=== PATIENT | male | born 1950 | race Caucasian/White ===

== ENCOUNTER 2020-01-19 12:21 | Outpatient (CLI) | payer MEDICARE, SELFPAY ==
--- NOTE | 2020-01-19 12:45 | USCV_ITS ---
Toni Riojas Age: 69 Gender: M : 1950 Exam Date: 01/19/2020 12:26 Ordering Phys: Coby Desai MD ([email or web address]) Technologist: Chloe Vergara Exam Location: [facility] [place] Indication: AOV REPLACEMENT BP: 127 / 73 HR: 97 Rhythm: Sinus Technical Quality: Poor secondary to COPD MEASUREMENTS (Male / Female) Normal Values 2D ECHO LVOT Diameter 2.0 cm LV Ejection Fraction MOD 2C 77.6 % LV Ejection Fraction 2C AL 79.2 % LA Diameter 2.6 cm LA Width 3.1 cm LA Height 4.2 cm RA Width 3.2 cm RA Height 4.3 cm M-MODE Aortic Annulus Diameter 3.4 cm LA Ao Ratio MM 0.8 DOPPLER AV Peak Velocity 145.0 cm/s LVOT Peak Velocity 100.0 cm/s AV Area Cont Eq vti 2.1 cm squared AV Area Cont Eq pk 2.3 cm squared MV Area PHT 5.0 cm squared Mitral E to A Ratio 0.6 MV E' Velocity 8.0 cm/s Mitral E to MV E' Ratio 8.1 Mitral E to LV E' Lateral Ratio 8.2 Mitral E to LV E' Septal Ratio 8.1 TV Peak E Velocity 48.0 cm/s Right Atrial Pressure 3.0 mmHg FINDINGS Left Ventricle Normal left ventricular size and systolic function, EF 74 %. Grade I/IV diastolic dysfunction (abnormal relaxation filling pattern), normal to mildly elevated filling pressures. Right Ventricle Normal right ventricular size and systolic function. Right Atrium Normal right atrial size. Left Atrium The left atrium is normal in size. Mitral Valve Thickened mitral valve. Aortic Valve Aortic valve appears to be well-seated within normal leaflet motion. The peak velocity across the aortic valve 1.5 m/s. The peak gradient was 9 mmHg. Tricuspid Valve No gross abnormalities noted Pulmonic Valve No gross abnormalities noted Pericardium Normal pericardium without effusion. Aorta Aortic root was of normal size CONCLUSIONS Normal left ventricular size and systolic function, EF 74 %. Grade I/IV diastolic dysfunction (abnormal relaxation filling pattern), normal to mildly elevated filling pressures. Aortic valve appears to be well-seated within normal leaflet motion. The peak velocity across the aortic valve 1.5 m/s. The peak gradient was 9 mmHg. Thickened mitral valve. There is no pericardial effusion. There are no intracardiac masses. No significant stenotic or regurgitant lesions were noted Compared to the previous study from a 12/23/2018, the aortic valve has been replaced. No other significant changes were noted Dr Coby Desai MD [facility] (Electronically Signed) Final Date: 22 Jan 2020 09:28 S
== END 2020-01-19 12:22 | disposition home or self-care (01) ==
LOC: RAD 12:23
PROVIDERS: Family Provider Internal Medicine; PCP Internal Medicine; Visit Provider Internal Medicine Cardiovascular Disease
DX: Z95.2 Presence of prosthetic heart valve (principal); I05.9 Rheumatic mitral valve disease, unspecified
CPT/HCPCS: 93306

== ENCOUNTER 2020-12-17 13:53 | Outpatient (CLI) | payer MEDICARE, SELFPAY ==
--- NOTE | 2020-12-17 13:59 | USCV_ITS ---
Toni Riojas Age: 70 Gender: M : 1950 Exam Date: 12/17/2020 13:48 Ordering Phys: Alayna Bloom MD Technologist: Patria Haider [place]am Location[place] [facility] [place] Indication: RLE PAD RIGHT LEFT Brachial 126.00 mmHg Brachial 113.00 mmHg Pressure (mmHg) Waveform Pressure (mmHg) Waveform 132.00 High Thigh 132.00 Above Knee 137.00 ACCOUNTING RECONCILIATION CLERK 132.00 DPA 1.09 Ankle/Brachial Index 70.00 Pre-Exercise Toe Pressure Pre-Exercise Toe/Brachial Index 0.56 FINDINGS Normal resting TERENCE of the right side Slightly diminished resting TBI on the right side Normal PVR waveforms CONCLUSIONS No significant arterial obstruction, based on the above findings Dr Coby Desai MD [facility] (Electronically Signed) Final Date: 17 December 2020 18:36 S
== END 2020-12-17 13:54 | disposition home or self-care (01) ==
LOC: RAD 13:56
PROVIDERS: PCP Internal Medicine; Visit Provider Internal Medicine
DX: I73.9 Peripheral vascular disease, unspecified (principal)
CPT/HCPCS: 93922

== ENCOUNTER 2021-03-10 11:02 | Outpatient (CLI) | payer MEDICARE, SELFPAY ==
--- NOTE | 2021-03-10 11:14 | CT_ITS ---
WS: [id number] LDCT LUNG CANCER SCREENING HISTORY: NICOTINE DEPENDENCE CIGARETTES W/OTHER NICOTINE DISORDERS TECHNIQUE: Axial imaging performed from the apices to 1 cm below the costophrenic angles. Coronal and sagittal reformats are submitted with axial MIP series. All CT scans at [facility] use at least one of these dose optimization techniques: automated exposure control; mA and/or kV adjustment per patient size (includes targeted exams where dose is matched to clinical indication); or iterativ e reconstruction. DLP: 59.33 mGy.cm DIvol: 1.58 mGy COMPARISON: 09/14/2017 Diagnostic quality: Satisfactory Lung Nodules: No pulmonary nodules, endobronchial lesion or groundglass nodule. Lungs: Moderate hyperexpansion. Calcified benign granuloma LEFT lower lobe. Linear scarring in the li ngula and at the LEFT lung base. Additional subsegmental atelectasis at the RIGHT costophrenic angle. Heart: Normal size heart. Status post CABG and median sternotomy. No pericardial effusion. Other findings: Mild atherosclerosis aorta. Pulmonary artery size is normal. No significant hiatal he rnia. Patient has a known RIGHT adrenal mass which is of low-attenuation and decreased Hounsfield uni ts consistent with an adenoma. Stable since 09/14/2017. Increase in thoracic kyphosis. CT/CT lung screening [id number] IMPRESSION: LUNG-RADS: 1-Negative FOLLOW UP: 12 Month: Continue annual screening with LDCT OTHER FINDINGS (S MODIFIER): None.
== END 2021-03-10 11:03 | disposition home or self-care (01) ==
PROVIDERS: PCP Internal Medicine; Visit Provider Internal Medicine
DX: Z12.2 Encounter for screening for malignant neoplasm of respiratory organs (principal); F17.218 Nicotine dependence, cigarettes, with other nicotine-induced disorders
CPT/HCPCS: 71271

== ENCOUNTER 2021-08-04 10:37 | Emergency (ER) | payer MEDICARE, SELFPAY ==
--- NOTE | 2021-08-04 11:07 | ED_ITS ---
HPI - Syncope General: Chief Complaint: Syncope Stated Complaint: PASSED OUT THIS MORNING Time Seen by Provider: 08/04/21 11:06 History of Present Illness: HPI narrative: 71-year-old male presents emergency room by private vehicle. Reports that he passed out this morning.He denies any chest pain or shortness of breath. He states he gets about a bed and got lightheaded and dizzy while he was on the way to the bathroom went back and sat down passed out. He has had similar episodes in the past. Is been evaluated for any significant finding. MD complaint: almost passed out Onset (ago): minute(s) Prodromal symptoms: lightheaded and palpitations Witnessed: No Injuries sustained associated with event: none Associated symptoms: Deny abdominal pain, chest pain, fever(s), headache(s), lightheadedness, nausea, short of breath, vertigo or weakness History: previous syncopal episode Treatments prior to arrival: none Review of Systems Const: Denies: fever(s) ENMT: Denies: throat pain, ear or mastoid pain, nasal discharge or nasal congestion Card: Denies: chest pain or lightheadedness Resp: Denies: dyspnea, productive cough or non-productive cough GI: Denies: abdominal pain or nausea : Denies: flank pain, dysuria, urinary frequency or urinary urgency Skin/Breast: Denies: rash or pruritus Neuro: Denies: headache(s) or vertigo PFSH ED PFSH: Medical History Aortic valve stenosis ASHD (arteriosclerotic heart disease) COPD (chronic obstructive pulmonary disease) Diabetes Hypertension Migraine Mixed hyperlipidemia Surgical History H/O aortic valve replacement History of colon resection Family History Other CAD (coronary artery disease) Social History Smoking and tobacco status: current every day smoker Alcohol intake: never Physical Exam Const: COMMON NORMALS: no acute distress GENERAL APPEARANCE: cooperative and comfortable ORIENTATION/CONSCIOUSNESS: Yes awake, Yes oriented to person, Yes oriented to place and Yes oriented to time HENMT: COMMON NORMALS: normocephalic, atraumatic, hearing grossly normal bilaterally, external ears normal, EAC's normal, TM's normal bilaterally, Normal nasal mucous membranes and turbinates present, moist oral mucous membranes and oropharynx normal HEAD & SCALP: normocephalic and atraumatic NOSE: Normal nasal mucous membranes and turbinates present EXTERNAL EAR: Yes external ears normal EXTERNAL AUDITORY CANAL: EAC's normal TYMPANIC MEMBRANE: TM's normal bilaterally Eye: COMMON NORMALS: Equal, round and reactive pupils present, EOMs intact bilaterally, conjunctivae normal and no scleral icterus CONJUNCTIVA: Yes conjunctivae normal PUPIL: Yes Equal, round and reactive pupils present Neck/C-Spine: COMMON NORMALS: full ROM, no lymphadenopathy, supple and no JVD Lymph: LYMPHATIC: no lymphadenopathy noted and no lymphedema noted Resp: COMMON NORMALS: normal respiratory effort, No retractions, No use of accessory muscles and clear to auscultation bilaterally AUSCULTATION: clear to auscultation bilaterally Cardio: COMMON NORMALS: no JVD, regular rate, regular rhythm and No murmurs present (Cardio) RATE: regular rate RHYTHM: regular rhythm GI: COMMON NORMALS: Soft to palpation and No hepatosplenomegaly present AUSCULTATION: Yes normoactive bowel sounds PALPATION: Yes Soft to palpation, No Tenderness to palpation present (GI), No Guarding due to palpation present (GI) and Yes No hepatosplenomegaly present Extremity: COMMON NORMALS: normal to inspection, capillary refill normal, no clubbing, cyanosis or edema, no calf tenderness and no pedal edema Neuro: SENSORIUM/ORIENTATION: Yes oriented to person, Yes oriented to place and Yes oriented to time Skin: COMMON NORMALS: no rashes or lesions noted GENERAL SKIN EXAM: no rashes or lesions noted Course Vital Signs: Vital signs: Vital Signs Temperature 97.9 F 08/04/21 11:16 Pulse Rate 72 08/04/21 11:49 Respiratory Rate 25 H 08/04/21 11:49 Blood Pressure 126/72 08/04/21 11:49 Pulse Oximetry 98 08/04/21 11:49 MDM - Syncope MDM Narrative: Medical decision making narrative: Reviewed labs imaging and EKGs with the patient. He would prefer to go home he has had these episodes in the past. We are going to discharge him home set him up for a 48-hour Holter monitor and a Lexiscan sestamibi stress test. Asked him to avoid exertional activities and return to the emergency room if he has any further problems after the evaluation is complete to follow-up with his primary care doctor. Lab Data: Labs: Lab Results 08/04/21 08/04/21 08/04/21 11:34 11:46 11:46 WBC 13.4 10^3/uL H 10 ^3/uL (4.0-10.0) RBC 5.09 10^6/uL 10^6 /uL (4.1-5.3) Hgb 15.9 g/dL g/dL (11.7-16.6) Hct 49.5 % % (42.0-52.0) MCV 97.2 fl H fl (80-94) MCH 31.2 pg pg (28.0-34.0) MCHC 32.1 g/dL g/dL (30.0-36.0) RDW 14.2 % % (12.1-15.1) Plt Count 187 10^3/cmm 10^3 /cmm (130-400) MPV 11.0 fL H fL (7.4-10.4) Neut % (Auto) 69.8 % % Lymph % (Auto) 22.2 % % [place] % (Auto) 4.6 % % Eos % (Auto) 2.3 % % Baso % (Auto) 0.7 % % Neut # (Auto) 9.36 10^3/uL H 10 ^3/uL (1.8-7.7) Lymph # (Auto) 3.0 10^3/uL 10^3/ uL (0.8-4.8) [place] # (Auto) 0.6 10^3/uL 10^3/ uL (0.2-0.9) Eos # (Auto) 0.3 10^3/uL 10^3/ uL (0.0-0.8) Baso # (Auto) 0.1 10^3/uL 10^3/ uL (0.0-0.1) Nucleated RBC % (a uto) 0 % % Nucleated RBCs # 0.0 /100WBC /100W BC Sodium Cancelled Potassium Cancelled Chloride Cancelled Carbon Dioxide Cancelled Anion Gap Cancelled BUN Cancelled Creatinine Cancelled GFR Calculation Cancelled Glucose Cancelled Calculated Osmolal ity Cancelled Calcium Cancelled Total Bilirubin Cancelled AST Cancelled ALT Cancelled Alkaline Phosphata se Cancelled Creatine Kinase Cancelled Troponin T Baselin e Troponin T 120 Min [place] Delta Troponin T Total Protein Cancelled Albumin Cancelled Globulin Cancelled Urine Color Yellow (Yellow) Urine Appearance Clear (CLEAR) Urine pH 6.5 (5-7) Ur Specific Gravit y 1.005 (1.005-1.030) Urine Protein Neg (Negative) Urine Glucose (UA) 4+ H (Normal) Urine Ketones Negative (Negative) Urine Blood Neg (Negative) Urine Nitrate Negative (Negative) Urine Bilirubin Neg (Negative) Urine Urobilinogen Norm mg/dL mg/dL (Negative) Ur Leukocyte Radha ase Negative (Negative) 08/04/21 08/04/21 08/04/21 11:46 12:43 12:43 WBC RBC Hgb Hct MCV MCH MCHC RDW Plt Count MPV Neut % (Auto) Lymph % (Auto) [place] % (Auto) Eos % (Auto) Baso % (Auto) Neut # (Auto) Lymph # (Auto) [place] # (Auto) Eos # (Auto) Baso # (Auto) Nucleated RBC % (a uto) Nucleated RBCs # Sodium 139 mmol/L mmol/L (136-145) Potassium 3.5 mmol/L mmol/L (3.5-5.1) Chloride 101 mmol/L mmol/L (98-107) Carbon Dioxide 24 mmol/L mmol/L (22-29) Anion Gap 17.5 (5-19) BUN 19 mg/dL mg/dL (8-23) Creatinine 1.5 mg/dL H mg/dL (0.7-1.2) GFR Calculation 46.3 mL/min L mL/ min (90-130) Glucose 118 mg/dL H mg/dL (65-115) Calculated Osmolal ity 291 mOsm/kg mOsm/ kg (285-295) Calcium 8.4 mg/dL L mg/dL (8.5-10.5) Total Bilirubin 0.3 mg/dL mg/dL (0.15-1.2) AST 15 U/L U/L (0-40) ALT 17 U/L U/L (0-41) Alkaline Phosphata se 78 IU/L IU/L (40-130) Creatine Kinase 120 U/L U/L (39-308) Troponin T Baselin e Cancelled 11 ng/L ng/L (0-15) Troponin T 120 Min [place] Delta Troponin T Total Protein 6.9 g/dL g/dL (6.6-8.7) Albumin 3.8 g/dL g/dL (3.5-5.2) Globulin 3.1 g/dL g/dL (1.3-4.6) Urine Color Urine Appearance Urine pH Ur Specific Gravit y Urine Protein Urine Glucose (UA) Urine Ketones Urine Blood Urine Nitrate Urine Bilirubin Urine Urobilinogen Ur Leukocyte Radha ase 08/04/21 14:10 WBC RBC Hgb Hct MCV MCH MCHC RDW Plt Count MPV Neut % (Auto) Lymph % (Auto) [place] % (Auto) Eos % (Auto) Baso % (Auto) Neut # (Auto) Lymph # (Auto) [place] # (Auto) Eos # (Auto) Baso # (Auto) Nucleated RBC % (a uto) Nucleated RBCs # Sodium Potassium Chloride Carbon Dioxide Anion Gap BUN Creatinine GFR Calculation Glucose Calculated Osmolal ity Calcium Total Bilirubin AST ALT Alkaline Phosphata se Creatine Kinase Troponin T Baselin e Troponin T 120 Min [place] 11.40 ng/L ng/L (0-15) Delta Troponin T 0.40 ABS# ABS# (0-10) Total Protein Albumin Globulin Urine Color Urine Appearance Urine pH Ur Specific Gravit y Urine Protein Urine Glucose (UA) Urine Ketones Urine Blood Urine Nitrate Urine Bilirubin Urine Urobilinogen Ur Leukocyte Radha ase Discharge Plan Discharge Patient Disposition: Home Clinical Impression: Syncope, Arrhythmia Condition: Stable Prescriptions: No Action atenolol-chlorthalidone 100-25 mg tablet 1 tab PO QAM RF: 0 isosorbide mononitrate 60 mg tablet extended release 24 hr 60 mg PO QAM RF: 0 losartan 50 mg tablet 50 mg PO QAM RF: 0 nitroglycerin [Nitrostat] 0.4 mg tablet, sublingual 0.4 mg SUBLINGUAL Q5M PRN (Reason: Chest Pain) RF: 0 Tresiba FlexTouch U-100 100 unit/mL (3 mL) insulin pen 40 - 45 unit SUBCUT BEDTIME RF: 0 Victoza 2-Roberto 0.6 mg/0.1 mL (18 mg/3 mL) pen injector 1.2 mg SUBCUT QAM RF: 0 Jardiance 25 mg Tablet 25 mg PO QAM RF: 0 clopidogrel 75 mg tablet 75 mg PO QAM RF: 0 simvastatin 20 mg tablet 20 mg PO BEDTIME RF: 0 Discharge Orders: Discharge ED (Routine); Ordered 08/04/21 Ordered By: Saeid Lacy Referrals: Alayna Bloom MD [Primary Care Provider] - Discharge Diet: Usual diet Discharge Activity: Increase activity as tolerated Patient Instructions: Opioid Safety Activity Restrictions/Additional Instructions: Avoid exertional activities. Case management will call to make arrangements for a Lexiscan sestamibi stress test and 48-hour Holter monitor. Return if you have any further problems. Coding Level of Care Code ED Dental Treatment Coordinator for Julio Cesar Rico
--- NOTE | 2021-08-04 11:14 | XR_ITS ---
WS: [id number] Exam: XR chest 1V portable [id number] Date/Time of Exam: 08/04/2021 11:22 AM Reason For Exam: dyspnea/cough Comparison 03/02/2019. The lungs are clear and fully inflated. Heart size is normal. The mediastinum and osseous thorax are unremarkable. Signs of previous median sternotomy. XR/XR chest 1V portable [id number] IMPRESSION: 1. No acute cardiopulmonary finding.
--- NOTE | 2021-08-04 11:15 | ECG_ITS ---
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 Measurements Intervals [place] Rate: 70 P: 39 NV: 229 QRS: 78 QRSD: 78 T: 116 QT: 371 QTc: 401 Interpretive Statements SINUS RHYTHM WITH FIRST DEGREE AV BLOCK SEPTAL MYOCARDIAL INFARCTION , PROBABLY OLD [40+ ms Q WAVE IN V1/V2] ST and T wave abnormality consider lateral ischemia Compared to ECG 03/15/2019 17:16:33 First degree AV block now present Myocardial infarct finding now present Electronically Signed On 08-05-2021 12:41:10 ASSEMBLING MOTOR BUILDER by Kim Mckenna M.D. [id number] f
[2021-08-04 11:16] VITALS: BP 135/78; PULSE 72; RESP 24; TEMP 36.6; O2SAT 98; BMI 27.2
--- NOTE | 2021-08-04 11:40 | PC.NURSE ---
pt placed on continuous spo2, nibp, and cm monitoring.
[2021-08-04 11:45] LABS: Add Urine Microscopic? NO; Charge for UA Resulting for Rev
[2021-08-04 11:49] VITALS: BP 125/69; BP 126/72; BP 127/84; PULSE 72; PULSE 73; PULSE 74; PULSE 76; RESP 25; O2SAT 98
--- NOTE | 2021-08-04 11:55 | PC.NURSE ---
sinus pause noted with pt becoming dizzy notified dr. sweeney no further orders.
[2021-08-04 12:05] LABS: Bilirubin Urine Neg (Negative); Blood Urine Neg (Negative); Glucose Urine UA 4+ (Normal); Ketones Urine Negative (Negative); Leukocyte Esterase Urine Negative (Negative); Nitrate Urine Negative (Negative); Protein Urine Neg (Negative); Specific Gravity, Urine 1.005 (1.005-1.030); Urine Appearance Clear (CLEAR); Urine Color Yellow (Yellow); Urobilinogen Urine Norm (Negative); pH Urine 6.5 (5-7)
[2021-08-04 12:15] LABS: Basophils # 0.1 10^3/uL (0.0-0.1); Basophils % 0.7 %; Eosinophils # 0.3 10^3/uL (0.0-0.8); Eosinophils % 2.3 %; Hematocrit 49.5 % (42.0-52.0); Hemoglobin 15.9 g/dL (11.7-16.6); Lymphocytes % 22.2 %; Mean Corpuscular HGB Conc 32.1 g/dL (30.0-36.0); Mean Corpuscular Hemoglobin 31.2 pg (28.0-34.0); Mean Corpuscular Volume 97.2 fl (80-94); Monocytes # 0.6 10^3/uL (0.2-0.9); Monocytes % 4.6 %; Neutrophils # 9.36 10^3/uL (1.8-7.7); Neutrophils % 69.8 %; Nucleated Red Blood Cells % 0 %; Platelet Count 187 10^3/cmm (130-400); Red Blood Count 5.09 10^6/uL (4.1-5.3); Red Cell Distribution Width 14.2 % (12.1-15.1); White Blood Count 13.4 10^3/uL (4.0-10.0)
--- NOTE | 2021-08-04 13:13 | PC.PHAR ---
pt states he takes care of his own medications-pt states he gets victoza, tresiba fflextouch u-100 and jardiance from the manufacture-notes are made in the pharmacy comments
--- NOTE | 2021-08-04 13:15 | ECG_ITS ---
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 Measurements Intervals [place] Rate: 74 P: 31 VT: 230 QRS: 71 QRSD: 77 T: 105 QT: 381 QTc: 424 Interpretive Statements SINUS RHYTHM WITH FIRST DEGREE AV BLOCK SEPTAL MYOCARDIAL INFARCTION , PROBABLY RECENT Compared to ECG 08/04/2021 11:30:31 No significant changes Electronically Signed On 08-05-2021 12:58:36 TECHNICAL ASSOCIATE by Kim Mckenna M.D. [email or web address].ChartWise Medical SystemsAndover College Prepselect medical [facility], avonFluid Imaging Technologies/store/NU/[id number] f
[2021-08-04 13:19] LABS: Alanine Aminotransferase 17 U/L (0-41); Albumin Level 3.8 g/dL (3.5-5.2); Alkaline Phosphatase 78 IU/L (40-130); Anion Gap 17.5 (5-19); Aspartate Amino Transferase 15 U/L (0-40); Blood Urea Nitrogen 19 mg/dL (8-23); Calcium 8.4 mg/dL (8.5-10.5); Carbon Dioxide 24 mmol/L (22-29); Chloride 101 mmol/L (98-107); Creatine Phosphokinase 120 U/L (39-308); Globulin 3.1 g/dL (1.3-4.6); Glomerular Filtration Rate 46.3 mL/min (90-130); Glucose 118 mg/dL (65-115); Osmolality Calculated 291 mOsm/kg (285-295); Potassium 3.5 mmol/L (3.5-5.1); Sodium 139 mmol/L (136-145); Total Bilirubin 0.3 mg/dL (0.15-1.2); Total Protein 6.9 g/dL (6.6-8.7)
[2021-08-04 13:22] LABS: Troponin(5th) Baseline 11 ng/L (0-15)
[2021-08-04] MEDS: tetanus-dipt-pertussis 0.5 mL SDV IM (17:02)
--- NOTE | 2021-08-04 17:16 | PC.NURSE ---
Vital signs printed and scanned into chart.
--- NOTE | 2021-08-04 17:17 | PC.NURSE ---
vs printed and placed in chart for reference.
== END 2021-08-04 17:19 | disposition home or self-care (01) ==
PROVIDERS: Emergency Provider Family Medicine; PCP Internal Medicine
DX: R55 Syncope and collapse (principal); I49.9 Cardiac arrhythmia, unspecified; Z79.4 Long term (current) use of insulin; Z79.02 Long term (current) use of antithrombotics/antiplatelets; J44.9 Chronic obstructive pulmonary disease, unspecified; E11.9 Type 2 diabetes mellitus without complications; I10 Essential (primary) hypertension; E78.2 Mixed hyperlipidemia; F17.210 Nicotine dependence, cigarettes, uncomplicated; Z23 Encounter for immunization
CPT/HCPCS: 36415; 71045; 80053; 81003; 82550; 84484; 85025; 90471; 90715; 93005; 99283

== ENCOUNTER 2021-08-05 09:50 | Emergency (ER) | payer MEDICARE, SELFPAY ==
--- NOTE | 2021-08-05 09:54 | XR_ITS ---
WS: [id number] Exam: XR chest 1V portable [id number] Date/Time of Exam: 08/05/2021 9:54 AM Reason For Exam: syncope Comparison 08/04/2021. Mild groundglass infiltrate has developed in the right upper lobe since the previous study. Heart siz e is normal. Remaining lung conrad are clear. There is pulmonary hyperinflation. No pleural effusions . The mediastinum is not widened. Signs of previous median sternotomy. XR/XR chest 1V portable [id number] IMPRESSION: 1. Mild groundglass infiltrate has developed in the upper lobe of the right alexey g since prior study. This is suspicious for pneumonia. Covid pneumonia might be considered. 2. Pulmonary hyperinflation which might represent chronic obstructive lung dise ase.
--- NOTE | 2021-08-05 09:54 | ECG_ITS ---
[facility] Test Date: 2021-08-05 Pat Name: Toni Riojas Department: Room: Gender: Male Optometric Technician: : 1950 Requested By: Dana Campuzano Order Number: [id number] Shannon MD: Coby Desai M.D. Measurements Intervals [place] Rate: 72 P: 41 [place]: 236 QRS: 74 QRSD: 77 T: 166 QT: 362 QTc: 398 Interpretive Statements SINUS RHYTHM WITH FIRST DEGREE AV BLOCK ANTEROSEPTAL MYOCARDIAL INFARCTION , OF INDETERMINATE AGE [40+ ms Q WAVE IN V1-V4] MODERATE T-WAVE ABNORMALITY, CONSIDER LATERAL ISCHEMIA [-0.1+ mV T-WAVE IN I/aVL/V5/V6] INTERPRETATION BASED ON A DEFAULT AGE OF 40 YEARS Compared to ECG 08/04/2021 14:14:13 T-wave abnormality now present Possible ischemia now present Myocardial infarct finding still present Electronically Signed On 08-05-2021 21:55:30 CHIEF II DISPATCHER by Coby Desai M.D. [id number] f
[2021-08-05 10:44] VITALS: BP 122/64; PULSE 67; RESP 16; TEMP 36.8; O2SAT 98; BMI 27.2
[2021-08-05 11:05] LABS: Basophils # 0.1 10^3/uL (0.0-0.1); Basophils % 0.4 %; Eosinophils # 0.2 10^3/uL (0.0-0.8); Eosinophils % 1.5 %; Hematocrit 49.3 % (42.0-52.0); Lymphocytes # 2.4 10^3/uL (0.8-4.8); Lymphocytes % 18.1 %; Mean Corpuscular HGB Conc 32.5 g/dL (30.0-36.0); Mean Corpuscular Hemoglobin 31.4 pg (28.0-34.0); Mean Corpuscular Volume 96.7 fl (80-94); Monocytes # 0.7 10^3/uL (0.2-0.9); Monocytes % 4.9 %; Neutrophils # 9.95 10^3/uL (1.8-7.7); Neutrophils % 74.6 %; Nucleated Red Blood Cells % 0 %; Platelet Count 182 10^3/cmm (130-400); Red Cell Distribution Width 14.1 % (12.1-15.1); White Blood Count 13.3 10^3/uL (4.0-10.0)
[2021-08-05 11:28] LABS: Alanine Aminotransferase 17 U/L (0-41); Albumin Level 4.2 g/dL (3.5-5.2); Alkaline Phosphatase 78 IU/L (40-130); Anion Gap 16.4 (5-19); Aspartate Amino Transferase 14 U/L (0-40); Blood Urea Nitrogen 17 mg/dL (8-23); Calcium 9.2 mg/dL (8.5-10.5); Carbon Dioxide 24 mmol/L (22-29); Chloride 99 mmol/L (98-107); Globulin 2.7 g/dL (1.3-4.6); Glomerular Filtration Rate 50.1 mL/min (90-130); Glucose 130 mg/dL (65-115); Osmolality Calculated 285 mOsm/kg (285-295); Potassium 3.4 mmol/L (3.5-5.1); Sodium 136 mmol/L (136-145); Total Bilirubin 0.5 mg/dL (0.15-1.2); Total Protein 6.9 g/dL (6.6-8.7)
[2021-08-05 11:29] LABS: Troponin(5th) Baseline 13 ng/L (0-15)
[2021-08-05 11:51] LABS: Add Urine Microscopic? NO; Charge for UA Resulting for Rev
[2021-08-05 11:59] LABS: Urine Appearance Clear (CLEAR); Urine Color Straw (Yellow)
[2021-08-05 12:00] LABS: Bilirubin Urine Neg (Negative); Blood Urine Neg (Negative); Glucose Urine UA 4+ (Normal); Ketones Urine Negative (Negative); Leukocyte Esterase Urine Negative (Negative); Nitrate Urine Negative (Negative); Protein Urine Neg (Negative); Urobilinogen Urine Norm (Negative); pH Urine 7 (5-7)
[2021-08-05 12:51] VITALS: BP 111/68; PULSE 76; RESP 18; O2SAT 96
[2021-08-05 14:52] LABS: Troponin 5 2HR 10.69 ng/L (0-15)
[2021-08-05 15:05] LABS: Troponin 5 2HR Delta -2.31 ABS# (0-10)
== END 2021-08-05 16:28 ==
PROVIDERS: Physician Assistant; PCP Internal Medicine
DX: Z53.21 Procedure and treatment not carried out due to patient leaving prior to being seen by health care provider (principal)
CPT/HCPCS: 36415; 71045; 80053; 81003; 84484; 85025; 93005

== ENCOUNTER 2021-08-22 16:07 | Inpatient (IN) | payer MEDICARE, SELFPAY ==
[2021-08-22 16:25] VITALS: BP 126/75; PULSE 85; RESP 16; TEMP 36.8; O2SAT 99
--- NOTE | 2021-08-22 16:44 | ECG_ITS ---
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 Measurements Intervals [place] Rate: 84 P: 49 [place]: 232 QRS: 78 QRSD: 72 T: 97 QT: 334 QTc: 397 Interpretive Statements SINUS RHYTHM WITH FIRST DEGREE AV BLOCK SEPTAL MYOCARDIAL INFARCTION , OF INDETERMINATE AGE [40+ ms Q WAVE IN V1/V2] Compared to ECG 08/05/2021 10:53:19 T-wave abnormality no longer present Possible ischemia no longer present Myocardial infarct finding still present Electronically Signed On 08-24-2021 13:20:18 GRANULATING MACHINE OPERATOR by Abhi Cobian M.D. [email or web address].[facility].Hungry Local/store/[id number]
--- NOTE | 2021-08-22 17:21 | CTR_ITS ---
PROCEDURE INFORMATION: Exam: CT Head Without Contrast Exam date and time: 08/22/2021 5:21 PM Age: 71 years old Clinical indication: Syncope and collapse; Patient HX: 2 syncope episode x2 weeks ago; Additional info: Fall, eval brain bleed TECHNIQUE: Imaging protocol: Computed tomography of the head without contrast. Radiation optimization: All CT scans at this facility use at least one of these dose optimization techniques: automated exposure control; mA and/or kV adjustment per patient size (includes targeted exams where dose is matched to clinical indication); or iterative reconstruction. COMPARISON: No relevant prior studies available. RADIATION DOSE METRICS: Total DLP (mGy-cm): 1065.11 FINDINGS: Brain: Mild diffuse white matter disease likely reflecting chronic microvascular ischemic changes. Cerebral ventricles: No ventriculomegaly. Paranasal sinuses: Paranasal sinus opacifications. Mastoid air cells: Visualized mastoid air cells are well aerated. Bones/joints: Unremarkable. No acute fracture. Soft tissues: Unremarkable. CT/CT head wo con* [id number] IMPRESSION: Negative for intracranial hemorrhage or mass effect Radiation Dose CTDIVOL = (mGy): DLP = 1065.11 (mGy-cm)
--- NOTE | 2021-08-22 17:23 | ED_ITS ---
HPI - General Adult General: Chief complaint: Syncope Stated complaint: SYNCOPAL EPISODE: SENT BY PCP Time Seen by Provider: 08/22/21 16:31 History of Present Illness: HPI narrative: HPI: [71]yo patient w/ hx of CABG, s/p vavular repair. recurrent syncopes on holter monitor presenintg s/p acute episode of syncope at 11am. It was witnessed by patient's family friends. Patient reports falling down and hitting his head against the ground. Patient is on any anticoagulation. Patient's holter monitor was reviewed earlier today which showed complete heart block lasting for 5 seconds. He denies any chest pain, shortness, palpitation, abdominal pain or back pain prior to the episode of syncope. No recent exertional chest pain or shortness of breath. Denies vertigo or disequilibrium. The episode of syncope was not preceded by any prodromes including nausea, pallor, or diaphoresis. No symptoms of diarrhea, hematuria, dysuria, melena or hematochezia. No prior documented hx of anemia requiring blood transfusions, VTE, or aortic aneurysm. Onset: 11am Duration: x 1 episode Location: home Severity: moderate Review of Systems Narrative: Constitutional: No fever, no chills. HEENT: No vision changes CV: No chest pain, no palpitations PULM: No productive cough, no dyspnea. GI: No abdominal pain, no N/V/D. : No Dysuria MSKEL: No muscle pain SKIN: No new rashes, no lesions. NEURO: No headache, no focal weakness. HEME: No visible bruises PSYCH: Normal mood PFSH ED PFSH: Medical History Aortic valve stenosis ASHD (arteriosclerotic heart disease) COPD (chronic obstructive pulmonary disease) Diabetes Hypertension Migraine Mixed hyperlipidemia Syncope Surgical History H/O aortic valve replacement History of colon resection Family History Other CAD (coronary artery disease) Social History Smoking and tobacco status: current every day smoker Alcohol intake: never Physical Exam Narrative: EXAM NARRATIVE: Head: Atraumatic Eyes: PERRL, conjunctiva without injection, eyes tracking ENT: Mucous membrane moist NECK: Supple without lymphadenopathy, no nuchal rigidity LUNGS: LCTAB CV: RRR ABDOMEN: Soft, nontender in all quadrants, no guarding or rebound tenderness, no CVA or flank tenderness bilaterally EXTREMITY: Normal ROM SKIN: No rash or erythema NEURO: Mental status: A/Ox3 CN II-XII tested and intact. Sensation intact to sharp/dull differentiation in all extremities. Motor: Normal tone and bulk. No abnormal movements appreciated. No pronator drift. Strength tested and 5/5 in bilateral wrist flexion/extension, elbow flexion/extension, shoulder abduction, straight leg raise, knee flexion/extension, ankle dorsiflexion/plantarflexion. Patient ambulates with a steady gait. Coordination: Finger to nose and heel to alfonso testing intact bilaterally. PSYCH: Cooperative mood and affect Course Vital Signs: Vital signs: Vital Signs Temperature 98.1 F 08/26/21 07:00 Pulse Rate 75 08/26/21 10:14 Respiratory Rate 16 08/26/21 10:14 Blood Pressure 113/59 08/26/21 10:00 Pulse Oximetry 97 08/26/21 10:14 MDM - General Adult MDM Narrative: Medical decision making narrative: [71]yo patient w/ hx of CABG, w/ valvular repair, holter monitor for recurrent syncopy presenting to the ED after a syncope episode with holter recording 5 seconds of 3rd degree heart block. -chest pain, -SOB, -palpitations. Currently symptom free. S/p HDS. Neurologically intact. Given history, exam and workup, presentation not consist ent with seizures given short time course, no postictal state, no seizure activity. Low suspicion for acute neurologic catastrophes to include ICH given lack of trauma, risk factors for bleeding diathesis. Low suspicion for vascular catastrophes to include PE, thoracic aortic dissection, AAA rupture. Presentation not consistent with acute life threatening arrhythmia, structural heart disease, electrical conduction abnormalities, or ACS. Workup: CBC, BMP, Troponin, BNP, ECG, CT head Intervention: IVF, PO challenge, and serial reassessment EKG showing regular sinus rhythm at HT of 84. Normal axis. NC prolongation No ST elevations/depressions to suggest coronary occlusion. Normal NC, QRS, QT intervals. EKG: No e/o STEMI. No evidence of Brugada?s sign, delta wave, epsilon wave, significantly prolonged QTc, or malignant arrhythmia. [5:30pm] Continues to be in NSR in the ER. Patient has 5seconds of 3rd degree heart block captured on holter around the time patient had the syncope episode. Given findings of 3rd degree heart block, case was discussed with Dr. Cobian who agrees with admission. CT head negative for any acute bleeding. Disposition: ICU Lab Data: Labs: Lab Results 08/22/21 08/22/21 08/22/21 17:27 17:27 17:27 WBC 13.9 10^3/uL H 10 ^3/uL (4.0-10.0) RBC 5.15 10^6/uL 10^6 /uL (4.1-5.3) Hgb 15.7 g/dL g/dL (11.7-16.6) Hct 49.6 % % (42.0-52.0) MCV 96.3 fl H fl (80-94) MCH 30.5 pg pg (28.0-34.0) MCHC 31.7 g/dL g/dL (30.0-36.0) RDW 13.8 % % (12.1-15.1) Plt Count 185 10^3/cmm 10^3 /cmm (130-400) MPV 10.1 fL fL (7.4-10.4) Neut % (Auto) 66.2 % % Lymph % (Auto) 23.4 % % [place] % (Auto) 5.5 % % Eos % (Auto) 3.7 % % Baso % (Auto) 0.7 % % Neut # (Auto) 9.21 10^3/uL H 10 ^3/uL (1.8-7.7) Lymph # (Auto) 3.3 10^3/uL 10^3/ uL (0.8-4.8) [place] # (Auto) 0.8 10^3/uL 10^3/ uL (0.2-0.9) Eos # (Auto) 0.5 10^3/uL 10^3/ uL (0.0-0.8) Baso # (Auto) 0.1 10^3/uL 10^3/ uL (0.0-0.1) Nucleated RBC % (a uto) 0 % % Nucleated RBCs # 0.0 /100WBC /100W BC PT INR APTT Sodium 141 mmol/L mmol/L (136-145) Potassium 4.3 mmol/L mmol/L (3.5-5.1) Chloride 105 mmol/L mmol/L (98-107) Carbon Dioxide 23 mmol/L mmol/L (22-29) Anion Gap 17.3 (5-19) BUN 12 mg/dL mg/dL (8-23) Creatinine 1.1 mg/dL mg/dL (0.7-1.2) GFR Calculation 66.2 mL/min L mL/ min (90-130) Glucose 151 mg/dL H mg/dL (65-115) Calculated Osmolal ity 295 mOsm/kg mOsm/ kg (285-295) Calcium 9.2 mg/dL mg/dL (8.5-10.5) Magnesium 1.5 mg/dL L mg/dL (1.7-2.3) Troponin T Baselin e 11 ng/L ng/L (0-15) TSH 08/22/21 08/22/21 17:27 17:27 WBC RBC Hgb Hct MCV MCH MCHC RDW Plt Count MPV Neut % (Auto) Lymph % (Auto) [place] % (Auto) Eos % (Auto) Baso % (Auto) Neut # (Auto) Lymph # (Auto) [place] # (Auto) Eos # (Auto) Baso # (Auto) Nucleated RBC % (a uto) Nucleated RBCs # PT 13.20 SECONDS SEC ONDS (12.1-14.9) INR 0.98 (0.8-1.2) APTT 27.8 SECONDS SECO NDS (23.9-36.7) Sodium Potassium Chloride Carbon Dioxide Anion Gap BUN Creatinine GFR Calculation Glucose Calculated Osmolal ity Calcium Magnesium Troponin T Baselin e TSH 1.89 uIU/mL uIU/m L (0.27-4.20) Discharge Plan Discharge Patient Disposition: Admitted As Inpatient Admit Provider: Clay Guajardo Clinical Impression: Syncope and collapse, Heart block Condition: Stable Coding Level of Care Code ED Maintenance Mechanic Millwright for Julio Cesar Rico
[2021-08-22 17:28] VITALS: PULSE 105; RESP 16
[2021-08-22 17:34] LABS: Basophils # 0.1 10^3/uL (0.0-0.1); Basophils % 0.7 %; Eosinophils # 0.5 10^3/uL (0.0-0.8); Eosinophils % 3.7 %; Hematocrit 49.6 % (42.0-52.0); Hemoglobin 15.7 g/dL (11.7-16.6); Lymphocytes # 3.3 10^3/uL (0.8-4.8); Lymphocytes % 23.4 %; Mean Corpuscular HGB Conc 31.7 g/dL (30.0-36.0); Mean Corpuscular Hemoglobin 30.5 pg (28.0-34.0); Mean Corpuscular Volume 96.3 fl (80-94); Mean Platelet Volume 10.1 fL (7.4-10.4); Monocytes # 0.8 10^3/uL (0.2-0.9); Monocytes % 5.5 %; Neutrophils # 9.21 10^3/uL (1.8-7.7); Neutrophils % 66.2 %; Nucleated Red Blood Cells % 0 %; Platelet Count 185 10^3/cmm (130-400); Red Blood Count 5.15 10^6/uL (4.1-5.3); Red Cell Distribution Width 13.8 % (12.1-15.1); White Blood Count 13.9 10^3/uL (4.0-10.0)
--- NOTE | 2021-08-22 17:50 | P.HP_ITS ---
Providers/Chief Complaint Primary Care Provider: Alayna Bloom MD Chief Complaint: SYNCOPAL EPISODE: SENT BY PCP History of Present Illness Toni Riojas is a 71 year old male with history of valvular heart disease status post aortic valve [place] [address] Rocha, follows up with Dr. Desai, established coronary disease, chronic dyspnea on exertion, diabetes, has been having recurrent syncopal events for quite some time. Patient is stating that he has been having recurrent syncopes for last few years, he has been evaluated multiple times by the technician plant and maintenance, recently he was put on Holter monitor. Today around 11:30 AM he was at his friend's home when he had an event when he tried to get up from sitting position to go towards the door he completely felt tired, fatigue and fell on the ground. He recovered quickly. He drove home and after few hours he got a phone call to go to the ER as soon as possible because of 5 seconds of third-degree heart block detected on the Holter monitor. Patient drove himself to the ER. In the ER he had another episode for about 10 to 15 seconds, telemetry strip was reviewed which showed complete heart block, narrow complex QRS, patient felt weak lethargic and he was diaphoretic. He recovered spontaneously this time as well and by the time I saw him his heart rate was in 70s, sinus rhythm, normal blood pressure systolic blood pressure in 140s, patient was able to remember details. Son at the bedside. Dr. Cobian is currently in Senior Professional Services Consultant for STEMI, he will evaluate him after his procedure. Zoll pads applied in the ER And home medications he does take atenolol and losartan which I would hold for now Will need permanent pacemaker Admit to ICU Review of Systems Const: Reports: chills Eyes: Denies: change in vision ENMT: Denies: throat pain Card: Reports: swelling of feet/ankles, syncope and dyspnea on exertion Resp: Reports: dyspnea GI: Denies: abdominal pain : Denies: flank pain Musc: Denies: neck pain Skin/Breast: Denies: rash Neuro: Denies: headache(s) Psych: Denies: anxiety Endo: Denies: polyuria Serge/Lymph: Denies: easy bruising All/Imm: Denies: urticaria Medications/Allergies Home Medications Medication Instructions Recorded Confirmed Last Taken Type insulin degludec 100 unit/mL (3 40 - 45 unit SUBCUT BEDTIME ml 12/20/19 08/23/21 08/03/21 History mL) subcutaneous pen isosorbide mononitrate 60 mg 60 mg PO QAM 12/20/19 08/23/21 08/04/21 07:00 History tablet,extended release 24 hr nitroglycerin 0.4 mg sublingual 0.4 mg SUBLINGUAL Q5M PRN 12/20/19 08/23/21 Unknown History tablet clopidogrel 75 mg PO QAM 08/04/21 08/23/21 08/04/21 07:00 History liraglutide [Victoza 2-Roberto] 1.2 mg SUBCUT QAM 08/04/21 08/23/21 08/04/21 History simvastatin 20 mg PO BEDTIME 08/04/21 08/23/21 08/03/21 History atenolol 100 mg tablet 100 mg PO DAILY tab 08/21/21 08/23/21 Unknown History losartan 50 mg tablet 50 mg PO QAM tab 08/21/21 08/23/21 Unknown History Allergies Allergy/AdvReac Type Severity Reaction Status Date / Time codeine Allergy Unknown unknown Verified 08/22/21 16:29 Penicillins Allergy Unknown unknown Verified 08/22/21 16:29 Sulfa (Sulfonamide Allergy Unknown unknown Verified 08/22/21 16:29 Antibiotics) PFSH Acute PFSH: Medical History (Updated 08/22/21 @ 19:48 by Clay Guajardo MD) Aortic valve stenosis ASHD (arteriosclerotic heart disease) COPD (chronic obstructive pulmonary disease) Diabetes Hypertension Migraine Mixed hyperlipidemia Syncope Surgical History H/O aortic valve replacement History of colon resection Family History Other CAD (coronary artery disease) Social History Smoking and tobacco status: current every day smoker Alcohol intake: never Vitals/I&O/Wt Last Vital Signs Temp 98.3 F 08/22/21 16:25 Pulse 85 08/22/21 16:25 Resp 16 08/22/21 16:25 BP 126/75 08/22/21 16:25 Pulse Ox 99 08/22/21 16:25 Weight last 48 hrs Weight 104.326 kg Physical Exam 2 Narrative: EXAM NARRATIVE: Patient was in sinus rhythm at the time of my evaluation He was awake and alert No shortness of breath or chest pain Saturating well 2 L nasal cannula 100% Abdomen soft Lower extremity pitting edema Awake alert oriented x3 pleasant and cooperative Son at the bedside No audible stridor or wheezing Zoll pads applied Data : 08/23/21 04:31 08/23/21 04:31 A&P Assessment and plan (1) Syncope and collapse: Status: Acute (2) Heart block: Status: Acute (3) H/O aortic valve replacement: Status: Acute Additional A&P Information complete heart block Recurrent syncopal events Will need permanent pacemaker Dr. Cobian consulted Currently patient has Zoll pads, he will be admitted to ICU Currently hemodynamically stable Dr. Cobian will see him after his STEMI, he was notified about recent event in the ER We will keep him n.p.o. Admit to ICU He is full code Hold atenolol Check TSH, magnesium level, Lower extremity edema, check echo, he is not on diuretics at home No DVT prophylaxis in anticipation of procedures Attestations Medical Necessity Statement*: More than 2 midnights anticipated Time Spent in Patient Care: Greater than 35 minutes Coding Level of Care Code Acute Lighting Fixtures Decorator for Julio Cesar Rico Diagnoses Syncope and collapse R55 Heart block I45.9 H/O aortic valve replacement Z95.2
[2021-08-22] MEDS: acetaminophen 500 mg Tablet PO (17:55)
[2021-08-22] MEDS: aspirin 325 mg Tablet PO (17:55)
[2021-08-22 18:00] VITALS: BP 122/76; PULSE 85; RESP 24
[2021-08-22 18:03] LABS: INR 0.98 (0.8-1.2); Partial Thromboplastin Time 27.8 SECONDS (23.9-36.7)
[2021-08-22 18:05] LABS: Anion Gap 17.3 (5-19); Blood Urea Nitrogen 12 mg/dL (8-23); Calcium 9.2 mg/dL (8.5-10.5); Carbon Dioxide 23 mmol/L (22-29); Chloride 105 mmol/L (98-107); Glomerular Filtration Rate 66.2 mL/min (90-130); Glucose 151 mg/dL (65-115); Magnesium 1.5 mg/dL (1.7-2.3); Osmolality Calculated 295 mOsm/kg (285-295); Potassium 4.3 mmol/L (3.5-5.1); Sodium 141 mmol/L (136-145)
[2021-08-22 18:27] LABS: Thyroid Stimulating Hormone 1.89 uIU/mL (0.27-4.20)
[2021-08-22 18:31] LABS: Troponin(5th) Baseline 11 ng/L (0-15)
--- NOTE | 2021-08-22 18:44 | ECG_ITS ---
[facility] Test Date: 2021-08-22 Pat Name: Toni Riojas Department: Room: [facility]02 Gender: Male Fountain Server: : 1950 Requested By: Malathi Benitez Order Number: [id number] Shannon MD: Abhi Cobian M.D. Measurements Intervals [place] Rate: 77 P: 35 MO: 242 QRS: 76 QRSD: 84 T: 92 QT: 379 QTc: 429 Interpretive Statements SINUS RHYTHM WITH FIRST DEGREE AV BLOCK SEPTAL MYOCARDIAL INFARCTION , OF INDETERMINATE AGE [40+ ms Q WAVE IN V1/V2] Compared to ECG 08/22/2021 16:22:34 No significant changes Electronically Signed On 08-25-2021 17:31:10 ORTHOPEDIC TECH by Abhi Cobian M.D. [id number]
[2021-08-22 19:26] LABS: Troponin 5 2HR 10.38 ng/L (0-15)
[2021-08-22 19:32] LABS: Troponin 5 2HR Delta -0.62 ABS# (0-10)
[2021-08-22 19:33] VITALS: BP 146/82; PULSE 85; RESP 24; O2SAT 98
[2021-08-22 21:47] VITALS: PULSE 77; RESP 18; O2SAT 98
[2021-08-22 22:00] VITALS: PULSE 81
--- NOTE | 2021-08-22 22:44 | ECG_ITS ---
[facility] Test Date: 2021-08-22 Pat Name: Toni Riojas Department: Room: [facility]02 Gender: Male Skip Tracer: : 1950 Requested By: Malathi Benitez Order Number: [id number] Shannon MD: Abhi Cobian M.D. Measurements Intervals [place] Rate: 66 P: 18 RI: 265 QRS: 78 QRSD: 74 T: 93 QT: 391 QTc: 413 Interpretive Statements SINUS RHYTHM WITH FIRST DEGREE AV BLOCK SEPTAL MYOCARDIAL INFARCTION , OF INDETERMINATE AGE [40+ ms Q WAVE IN V1/V2] Compared to ECG 08/22/2021 20:40:26 No significant changes Electronically Signed On 08-25-2021 17:31:01 MANAGER HEMATOLOGY by Abhi Cobian M.D. [id number]
[2021-08-23] VITALS (65 sets, daily range): BP systolic 110–159; BP diastolic 64–93; PULSE 70–87; RESP 9–28; TEMP 36.5–36.9; O2SAT 94–100
[2021-08-23 01:13] LABS: Troponin 5 6HR 12.09 ng/L (0-15); Troponin 5 6HR Delta 1.09 ng/L (0-12)
[2021-08-23 05:32] LABS: Basophils # 0.1 10^3/uL (0.0-0.1); Basophils % 0.7 %; Eosinophils # 0.5 10^3/uL (0.0-0.8); Eosinophils % 3.6 %; Hematocrit 52.4 % (42.0-52.0); Hemoglobin 16.3 g/dL (11.7-16.6); Lymphocytes # 2.7 10^3/uL (0.8-4.8); Lymphocytes % 19.3 %; Mean Corpuscular HGB Conc 31.1 g/dL (30.0-36.0); Mean Corpuscular Hemoglobin 30.6 pg (28.0-34.0); Mean Corpuscular Volume 98.5 fl (80-94); Mean Platelet Volume 10.4 fL (7.4-10.4); Monocytes # 0.8 10^3/uL (0.2-0.9); Monocytes % 5.8 %; Neutrophils # 9.64 10^3/uL (1.8-7.7); Neutrophils % 70.1 %; Nucleated Red Blood Cells % 0 %; Platelet Count 143 10^3/cmm (130-400); Red Blood Count 5.32 10^6/uL (4.1-5.3); White Blood Count 13.8 10^3/uL (4.0-10.0)
[2021-08-23 06:24] LABS: Alanine Aminotransferase 19 U/L (0-41); Albumin Level 3.9 g/dL (3.5-5.2); Alkaline Phosphatase 100 IU/L (40-130); Aspartate Amino Transferase 16 U/L (0-40); Blood Urea Nitrogen 11 mg/dL (8-23); Calcium 8.8 mg/dL (8.5-10.5); Carbon Dioxide 20 mmol/L (22-29); Chloride 104 mmol/L (98-107); Globulin 3.1 g/dL (1.3-4.6); Glomerular Filtration Rate 73.9 mL/min (90-130); Glucose 156 mg/dL (65-115); Magnesium 1.7 mg/dL (1.7-2.3); Osmolality Calculated 287 mOsm/kg (285-295); Sodium 137 mmol/L (136-145); Total Bilirubin 0.5 mg/dL (0.15-1.2)
[2021-08-23 06:56] LABS: Anion Gap 17.3 (5-19); Potassium 4.3 mmol/L (3.5-5.1)
[2021-08-23 08:43] LABS: Glucose Point of Care 169 mg/dL (70-110)
--- NOTE | 2021-08-23 10:22 | XACV_ITS ---
Exam Room: [facility] Ht: 196 cm Wt: 104 kg BSA: 2.39 m2 Gender: Male : 1950 Any Known Allergies: Penicillins Exam Priority: Routine Procedure(s): Procedure Description: Miscellaneous Procedure Description: Temporary Pacemaker Insertion Diagnostic Cath Status: Urgent Diagnostic Findings * INDICATION: Complete heart block/syncope. Interventional Findings * Procedure detail: We obtained access in right common femoral vein. Temporary pacemaker was placed in right ventricle under fluoroscopic guidance. It was set on demand pacing. It was sutured in place and secured. Patient left the Design Engineer Agricultural Equipment in stable condition. Conclusions 1. Complete heart block. S/p successful placement of temporary pacemaker. Recommendations * Transfer back to ICU. * Will need placement of permanent pacemaker after the weekend. Clinical Evaluation EBL: 5mL-10mL Procedural Details Procedure Consent Obtained. Admit Source: In Patient. Pre-Procedure Time Out. Identified patient by full name and date of as verbalized by the patient/guarantor. Does the consent match the physician's order: Yes. Accurate & Complete Informed Consent: Yes. Inpatient/Outpatient History & Physical on Chart: Yes. Visualize and Verify Site with Patient/Guarantor: N/A. Relevant Radiology Images available: N/A. Pre-op teaching completed and patient verbalized understanding. The risks, benefits, and alternatives of sedation and/or procedure were discussed by physician. The patient agrees to continue. Procedure started. PERRLA. Strong, equal hand building maintenance worker bilaterally. Lungs clear x 5 lobes. IV Site on Arrival: 20 gauge in the right anticubital. IV Fluids: 0.9% NaCl at KVO. 0 mL infused prior to cardiac catheterization technician. Oxygen started at 2liters/min via nasal canula. right groin was prepped with chloroprep then draped in the usual sterile fashion. Physician notified. Baseline sample Acquired. HR: 78 BPM. Physician arrived. Physician scrubbed in. Time out performed with cath team. Lidocaine 1% infiltrated to Right groin area. Access obtained in right groin vein with micropuncture set. 6Fr dilator inserted. dilator out. TPM cable inserted. TPM settings : Sensitivity 0.5, Output 2, Rate 50. TPM leads sutured in place with 2.0 silk. Procedure completed. Total IV fluids: 50 mL. No VTE prophylaxis required. Post-op diagnosis: complete heart block. Complications: none. Estimated blood loss: 5mL-10mL. Medication's Wasted: Heparin = 3000 u. Patient transferred by bed to ICU. Responsiveness - Normal response to verbal stimuli; alert and oriented, PERRLA. Airway - Unaffected, no intervention required; spontaneous ventilation. Circulation: W/N/L, pulses unchanged. Nausea/Vomiting: No. Vital chart was stopped. Access Site Site: Right Femoral vein Sheath Size: 6 Fr Hemostasis Success: Unsuccessful Procedure Medications Start: 10:33 AM Stop: 10:33 AM Medication: Versed Amount: 1 mg Route: I.V. Start: 10:33 AM Stop: 10:33 AM Medication: Fentanyl Amount: 50 mcg Route: I.V. Start: 10:47 AM Stop: 10:47 AM Medication: Versed Amount: 0.5 mg Route: I.V. Start: 10:47 AM Stop: 10:47 AM Medication: Fentanyl Amount: 25 mcg Route: I.V. Start: 10:49 AM Stop: 10:49 AM Medication: Versed Amount: 0.5 mg Route: I.V. Start: 10:49 AM Stop: 10:49 AM Medication: Fentanyl Amount: 25 mcg Route: I.V. I, the attending physician, have reviewed and verified all procedure medications. Yes, all medications given per verbal order History/Risk Factors Hypertension: No Dyslipidemia: No Peripheral Arterial Disease (PAD): No Myocardial Infarction ([place]): No Obesity: No Renal Disease: No Prior Interventions PCI: No CABG: No Valve Surgery: No Report Signatures Finalized by Abhi Cobian MD on 09/09/2021 07:29 AM
--- NOTE | 2021-08-23 10:33 | PM.CONSULT ---
Providers/Reason For Consult Consulting Physician/Specialty*: Abhi Cobian MD/ Cardiology Reason for Consult*: Complete heart block/syncope Requesting Physician: Dr Guajardo Attending Physician: Clay Guajardo MD Primary Care Provider: Alayna Bloom MD History of Present Illness History of Present Illness Toni Riojas is a 71 year old male with past medical history of aortic valve replacement, coronary artery disease, dyspnea on exertion, diabetes has been having recurrent syncopal episodes. He sees Dr. Desai as outpatient. He was put on event monitor that showed complete heart block on Wednesday and he had a syncopal episode at the same time. Last night in the emergency room he again had a long 10-second complete heart block with no ventricular escape rhythm and he had a presyncopal episode where he became diaphoretic and almost passed out. Several more episodes over the night. He denies chest pain at this time. Echocardiogram has been performed and shows normal LV systolic function and no gross abnormalities of the valves. Review of Systems Const: Reports: chills Eyes: Denies: change in vision ENMT: Denies: throat pain Card: Reports: swelling of feet/ankles, syncope and dyspnea on exertion Resp: Reports: dyspnea GI: Denies: abdominal pain : Denies: flank pain Musc: Denies: neck pain Skin/Breast: Denies: rash Neuro: Denies: headache(s) Psych: Denies: anxiety Endo: Denies: polyuria Serge/Lymph: Denies: easy bruising All/Imm: Denies: urticaria Meds/Allergies Home Medications and Allergies Home Medications Medication Instructions Recorded Confirmed Last Taken Type insulin degludec 100 unit/mL (3 40 - 45 unit SUBCUT BEDTIME ml 12/20/19 08/23/21 08/03/21 History mL) subcutaneous pen isosorbide mononitrate 60 mg 60 mg PO QAM 12/20/19 08/23/21 08/04/21 07:00 History tablet,extended release 24 hr nitroglycerin 0.4 mg sublingual 0.4 mg SUBLINGUAL Q5M PRN 12/20/19 08/23/21 Unknown History tablet clopidogrel 75 mg PO QAM 08/04/21 08/23/21 08/04/21 07:00 History liraglutide [Victoza 2-Roberto] 1.2 mg SUBCUT QAM 08/04/21 08/23/21 08/04/21 History simvastatin 20 mg PO BEDTIME 08/04/21 08/23/21 08/03/21 History atenolol 100 mg tablet 100 mg PO DAILY tab 08/21/21 08/23/21 Unknown History losartan 50 mg tablet 50 mg PO QAM tab 08/21/21 08/23/21 Unknown History Allergies Allergy/AdvReac Type Severity Reaction Status Date / Time codeine Allergy Unknown unknown Verified 08/22/21 16:29 Penicillins Allergy Unknown unknown Verified 08/22/21 16:29 Sulfa (Sulfonamide Allergy Unknown unknown Verified 08/22/21 16:29 Antibiotics) PFSH Acute PFSH: Medical History Aortic valve stenosis ASHD (arteriosclerotic heart disease) COPD (chronic obstructive pulmonary disease) Diabetes Hypertension Migraine Mixed hyperlipidemia Syncope Surgical History H/O aortic valve replacement History of colon resection Family History Other CAD (coronary artery disease) Social History Smoking and tobacco status: current every day smoker Alcohol intake: never Vitals/I&O/Wt Last Vital Signs Temp 98.5 F 08/23/21 08:00 Pulse 74 08/23/21 10:00 Resp 21 H 08/23/21 10:00 BP 146/85 08/23/21 10:00 Pulse Ox 99 08/23/21 10:00 08/22/21 08/23/21 08/23/21 22:59 06:59 14:59 Output Total 900 / 900 650 / 650 Balance -900 / -900 -650 / -650 Weight last 48 hrs Weight 230 lb Physical Exam Narrative: EXAM NARRATIVE: GENERAL: Patient is alert, awake and oriented x3. [] NECK: No jugular vein distension. [] HEENT: No cyanosis. No icterus. No pallor. [] HEART: Regular S1 and S2. No murmur, rub or gallop. [] LUNGS: Clear to auscultate bilaterally. [] ABDOMEN: Soft, nontender and nondistended. Positive bowel sounds. No guarding, rebound or tenderness. [] CENTRAL NERVOUS SYSTEM: Grossly nonfocal. [] EXTREMITIES: Lower extremities with 1+ edema bilaterally. Pulses palpable in the lower extremities, both dorsalis pedis and posterior tibial. [] A&P Assessment and plan (1) Syncope and collapse: Status: Acute (2) Complete heart block: Status: Acute (3) Diabetes: Status: Acute Qualifiers: Diabetes mellitus type: type 2 Diabetes mellitus senior care insulin use: without rn long term care use Diabetes mellitus complication status: with hyperglycemia Qualified Code(s): E11.65 - Type 2 diabetes mellitus with hyperglycemia (4) Hypertension: Status: Acute Qualifiers: Hypertension type: essential hypertension Qualified Code(s): I10 - Essential (primary) hypertension (5) H/O aortic valve replacement: Status: Acute (6) ASHD (arteriosclerotic heart disease): Status: Acute Patient has been having multiple syncopal episodes and 1 on Wednesday that correlated with complete heart block and no ventricular escape rhythm on event monitor. He again had a presyncopal episode in the ER. Given multiple episodes, we will proceed with putting the temporary pacemaker today. Continue ICU monitoring. Hold all rate controlling medications. We will discuss with his primary metallurgist process, Dr. Desai on Wednesday for placement of permanent pacemaker. Echocardiogram shows normal LV systolic function and no gross abnormalities of the valves. Limited visualization. Thank you for involving us with care of this patient. We will continue to follow. Please call with questions. Coding Level of Care Code Acute Materials And Corrosion Engineer for Julio Cesar Rico Diagnoses Syncope and collapse R55 Complete heart block I44.2 Diabetes E11.65 Diabetes mellitus type: type 2 Diabetes mellitus rn long term care insulin use: without senior care use Diabetes mellitus complication status: with hyperglycemia Hypertension I10 Hypertension type: essential hypertension H/O aortic valve replacement Z95.2 ASHD (arteriosclerotic heart disease) I25.10
--- NOTE | 2021-08-23 10:33 | W.PM.OPSUD ---
Surgery/Procedure H&P Update DATE OF PROCEDURE: August 23, 2021 DATE H&P PERFORMED: 08/23/21 H&P UPDATE INFORMATION: I have reviewed H&P completed within last 30 days, I have examined patient prior to procedure and No changes to prior documentation PREOP DIAGNOSIS: Intermittent Complete heart block with no escape rhythm PRIMARY INDICATION FOR PROCEDURE: Intermittent Complete heart block with no escape rhythm PLANNED PROCEDURE: Temporary pacemaker placement PATIENT REASSESSED PRIOR TO SEDATION, WITH NO CHANGE NOTED: Yes PHYSICAL EXAM: alert, oriented x 3 and clear to auscultation bilaterally AIRWAY EVAL/ANESTHESIA PLAN: ASA III, Monitored Anesthesia, Local Anesthesia, Risks, benefits & alternatives of sedation and/or procedure discussed and Patient agrees to continue as planned
--- NOTE | 2021-08-23 13:11 | PC.NURSE ---
Dr. Guajardo and Dr. Cobian rounded with patient. Discussed temporary pacemaker placement. Patient got temporary pacemaker placed in cathode builder and returned to room around 1150. Rate set at 50. Output 2.5. Sensitivity at 0.5. Patient educated about not moving the leg. Patient requested a meal. Contacted Dr. Guajardo with patient update and requested a diet change. Dr. Guajardo stated that the patient can get a cardiac diet. Clayton called.
--- NOTE | 2021-08-23 15:43 | P.PN_ITS ---
Subjective Subjective: Interval history: Patient was asymptomatic this morning, he had 2 to 5 seconds of pauses overnight patient is describing those events as feeling extremely tired and fatigued Today this morning he is hemodynamically stable Zoll pads on his chest Going for temporary pacemaker Will need permanent pacemaker, most likely on Wednesday Vitals/I&O/Wt Last Vital Signs Temp 97.7 F 08/23/21 12:30 Pulse 77 08/23/21 14:00 Resp 17 08/23/21 14:00 BP 137/84 08/23/21 14:00 Pulse Ox 98 08/23/21 14:00 08/23/21 08/23/21 08/23/21 06:59 14:59 22:59 Intake Total 170 / 170 Output Total 900 / 900 1175 / 1175 Balance -900 / -900 -1005 / -1005 Weight last 48 hrs Weight 104.326 kg Physical Exam Narrative: EXAM NARRATIVE: early male Laying comfortably in his bed On room air Removed nasal cannula he was saturating 100% Abdomen soft S1, S2 EOMI, PERRLA Nonfocal neuro exam Zoll pads on his chest Data : 08/23/21 04:31 08/23/21 04:31 A&P Assessment and plan (1) Syncope and collapse: Status: Acute (2) Heart block: Status: Acute (3) H/O aortic valve replacement: Status: Acute Additional A&P Information Complete heart block Temporary pacemaker today, permanent pacemaker placement most likely on Wednesday Allow cardiac diet afterwards Atenolol discontinued Magnesium repleted TSH normal Potassium within normal range Full code Attestations Medical Necessity Statement*: Stay until Wednesday Time Spent in Patient Care: less than 15 minutes Coding Level of Care Code Acute Milling Machine Operator Gear for Julio Cesar Fwdylan Diagnoses Syncope and collapse R55 Heart block I45.9 H/O aortic valve replacement Z95.2
--- NOTE | 2021-08-23 18:26 | PC.NURSE ---
Shift Note Frequent safety and comfort rounds continue. Orders and/or nursing care completed as indicated. Patient monitored for response to intervention and treatment(s). Education provided includes pacemaker, care plan, and medications. Patient and/or customer care representative verbalized understanding. Family visited patient. Patient resting in bed.
--- NOTE | 2021-08-23 19:55 | USCV_ITS ---
Toni Riojas Age: 71 Gender: M : 1950 Exam Date: 08/23/2021 09:53 Ordering Phys: Clay Guajardo MD Technologist: Exam Location: [facility] [place] Indication: 3rd block BP: 146 / 82 HR: 73 Rhythm: Sinus Technical Quality: Technically difficult study MEASUREMENTS (Male / Female) Normal Values 2D ECHO LV Chamber Size 3.4 cm RV Chamber Size 2.7 cm LVOT Diameter 2.0 cm LA Width 2.4 cm LA Height 4.8 cm RA Width 2.4 cm RA Height 5.0 cm M-MODE LV Diastolic Diameter MM 5.0 cm 4.2 - 5.9 / 3.9 - 5.3 cm LV Systolic Diameter MM 3.0 cm LV Ejection Fraction MM Teich 70.9 % IVS Diastolic Thickness MM 1.6 cm 0.6 - 1.0 / 0.6 - 0.9 cm IVS Systolic Thickness MM 1.8 cm LVPW Diastolic Thickness MM 1.4 cm 0.6 - 1.0 / 0.6 - 0.9 cm LVPW Systolic Thickness MM 1.5 cm RV Diastolic Diameter MM 1.1 cm DOPPLER AV Peak Velocity 161.0 cm/s LVOT Peak Velocity 101.0 cm/s AV Area Cont Eq vti 1.9 cm squared AV Area Cont Eq pk 1.9 cm squared MV Area PHT 3.1 cm squared Mitral E to A Ratio 1.2 MV E' Velocity 49.0 cm/s Mitral E to MV E' Ratio 10.9 Mitral E to LV E' Lateral Ratio 10.0 Mitral E to LV E' Septal Ratio 12.3 TV Peak E Velocity 55.0 cm/s Right Atrial Pressure 8.0 mmHg FINDINGS Left Ventricle Normal left ventricular size. LV systolic function is normal with EF of 55 to 60%. No regional wall motion abnormalities. Normal diastolic function Right Ventricle The right ventricle is normal in size and function. Right Atrium The right atrium is normal in size. Left Atrium The left atrium is normal in size. Mitral Valve Grossly normal significant stenosis or prolapse. There is no mitral regurgitation. Aortic Valve Grossly normal without significant stenosis. There is no aortic regurgitation. Tricuspid Valve No gross abnormalities Pulmonic Valve Not well-visualized Pericardium Normal pericardium without effusion. Aorta Normal ascending aorta dimension. CONCLUSIONS LV systolic function is normal with EF 55 to 60%. Diastolic function is normal. No gross valvular abnormalities. Compared to prior echocardiogram from 01/19/2020, no significant changes are noted. Abhi Cobian MD (Electronically Signed) Final Date: 23 August 2021 17:24 S
[2021-08-24] VITALS (64 sets, daily range): BP systolic 110–148; BP diastolic 54–95; PULSE 67–86; RESP 2–27; TEMP 36.6–36.7; O2SAT 93–100
[2021-08-24 00:20] LABS: Glucose Point of Care 212 mg/dL (70-110)
[2021-08-24 03:31] LABS: Basophils # 0.1 10^3/uL (0.0-0.1); Basophils % 0.6 %; Eosinophils # 0.3 10^3/uL (0.0-0.8); Hematocrit 48.8 % (42.0-52.0); Hemoglobin 15.6 g/dL (11.7-16.6); Lymphocytes # 2.5 10^3/uL (0.8-4.8); Lymphocytes % 23.9 %; Mean Corpuscular Hemoglobin 30.7 pg (28.0-34.0); Mean Corpuscular Volume 96.1 fl (80-94); Mean Platelet Volume 10.2 fL (7.4-10.4); Monocytes # 0.7 10^3/uL (0.2-0.9); Neutrophils # 6.88 10^3/uL (1.8-7.7); Neutrophils % 65.1 %; Nucleated Red Blood Cells % 0 %; Platelet Count 162 10^3/cmm (130-400); Red Blood Count 5.08 10^6/uL (4.1-5.3); Red Cell Distribution Width 13.8 % (12.1-15.1); White Blood Count 10.6 10^3/uL (4.0-10.0)
[2021-08-24 03:56] LABS: Anion Gap 11.9 (5-19); Blood Urea Nitrogen 15 mg/dL (8-23); Calcium 8.3 mg/dL (8.5-10.5); Carbon Dioxide 25 mmol/L (22-29); Chloride 105 mmol/L (98-107); Glomerular Filtration Rate 59.9 mL/min (90-130); Glucose 172 mg/dL (65-115); Magnesium 1.6 mg/dL (1.7-2.3); Osmolality Calculated 291 mOsm/kg (285-295); Potassium 3.9 mmol/L (3.5-5.1); Sodium 138 mmol/L (136-145)
[2021-08-24] MEDS: magnesium sulfate premix 2 GM/50 ML PIGGYBACK IV (09:32)
--- NOTE | 2021-08-24 10:34 | PC.NURSE ---
report called and transfered to floor at this time
--- NOTE | 2021-08-24 13:04 | P.PN_ITS ---
Subjective Subjective: Interval history: No overnight events, patient is doing well, right groin without any hematoma or bleeding, edema of bilateral legs seems to be improved Patient is having diarrhea, will request C. difficile He seems to have chronic diarrhea since his previous surgery Hemodynamically stable Plan for permanent pacemaker placement, will make him n.p.o. after midnight Vitals/I&O/Wt Last Vital Signs Temp 97.9 F 08/24/21 08:00 Pulse 83 08/24/21 12:00 Resp 13 08/24/21 12:00 BP 142/83 08/24/21 12:00 Pulse Ox 97 08/24/21 12:00 08/23/21 08/24/21 08/24/21 22:59 06:59 14:59 Intake Total 237 / 407 550 / 550 Output Total 475 / 1650 550 / 2200 850 / 850 Balance -238 / -1243 -550 / -1793 -300 / -300 Weight last 48 hrs Weight 104.326 kg Physical Exam Narrative: EXAM NARRATIVE: Patient is on room air Very pleasant and cooperative Bilateral lower extremity without any vascular compromise Temporary pacemaker placed on 08/23 EOMI, PERRLA nonfocal neuro exam Abdomen soft Euvolemic No audible stridor or wheezing Data : 08/24/21 03:16 08/24/21 03:16 A&P Assessment and plan (1) Syncope and collapse: Status: Acute (2) Heart block: Status: Acute (3) H/O aortic valve replacement: Status: Acute (4) Diabetes: Status: Acute Qualifiers: Diabetes mellitus type: type 2 Diabetes mellitus equipment operator intermodal yard insulin use: without equipment operator intermodal yard use Diabetes mellitus complication status: with hyperglycemia Qualified Code(s): E11.65 - Type 2 diabetes mellitus with hyperglycemia (5) Hypertension: Status: Acute Qualifiers: Hypertension type: essential hypertension Qualified Code(s): I10 - Essential (primary) hypertension Additional A&P Information Complete heart block Recurrent syncopal events in the past Status post temporary pacemaker placement 08/[address] Cobian Plan for permanent pacemaker placement on Wednesday N.p.o. after midnight No overnight events Patient is euvolemic Experiencing diarrhea today, rule out C. difficile has chronic diarrhea since previous surgery, patient does respond to Imodium Aortic valve replacement in the past, no acute exacerbation Full code N.p.o. after midnight DVT prophylaxis: We will hold in anticipation of surgery tomorrow Hypomagnesemia: Repleted Attestations Medical Necessity Statement*: Permanent pacemaker placement evaluation tomorrow Time Spent in Patient Care: less than 15 minutes Coding Level of Care Code Acute Carbon Brushes Assembler for Sandrag Fwd Diagnoses Syncope and collapse R55 Heart block I45.9 H/O aortic valve replacement Z95.2 Diabetes E11.65 Diabetes mellitus type: type 2 Diabetes mellitus equipment operator intermodal yard insulin use: without equipment operator intermodal yard use Diabetes mellitus complication status: with hyperglycemia Hypertension I10 Hypertension type: essential hypertension
[2021-08-24] MEDS: potassium chloride ER 20 mEq Tablet 40 MEQ PO (14:37)
[2021-08-24] MEDS: loperamide 2 mg Capsule PO (16:01)
[2021-08-25] VITALS (87 sets, daily range): BP systolic 97–147; BP diastolic 62–96; PULSE 69–90; RESP 10–32; TEMP 36.8–37; O2SAT 72–98
[2021-08-25 04:14] LABS: Basophils # 0.1 10^3/uL (0.0-0.1); Basophils % 0.4 %; Eosinophils # 0.3 10^3/uL (0.0-0.8); Eosinophils % 2.3 %; Hematocrit 53.8 % (42.0-52.0); Hemoglobin 17.2 g/dL (11.7-16.6); Lymphocytes % 24.1 %; Mean Corpuscular Hemoglobin 31.2 pg (28.0-34.0); Mean Corpuscular Volume 97.5 fl (80-94); Mean Platelet Volume 10.2 fL (7.4-10.4); Monocytes # 0.9 10^3/uL (0.2-0.9); Monocytes % 6.9 %; Neutrophils # 8.14 10^3/uL (1.8-7.7); Neutrophils % 65.7 %; Nucleated Red Blood Cells % 0 %; Platelet Count 156 10^3/cmm (130-400); Red Blood Count 5.52 10^6/uL (4.1-5.3); Red Cell Distribution Width 13.9 % (12.1-15.1); White Blood Count 12.4 10^3/uL (4.0-10.0)
[2021-08-25 04:58] LABS: Anion Gap 18.2 (5-19); Blood Urea Nitrogen 15 mg/dL (8-23); Calcium 8.5 mg/dL (8.5-10.5); Carbon Dioxide 17 mmol/L (22-29); Chloride 106 mmol/L (98-107); Glomerular Filtration Rate 66.2 mL/min (90-130); Glucose 155 mg/dL (65-115); Magnesium 1.7 mg/dL (1.7-2.3); Osmolality Calculated 288 mOsm/kg (285-295); Potassium 4.2 mmol/L (3.5-5.1); Sodium 137 mmol/L (136-145)
--- NOTE | 2021-08-25 09:41 | PC.SOCIAL ---
IMM Update Pg. 2 of IMM Updated and reviewed with patient, who verbalized understanding. Copy provided.
--- NOTE | 2021-08-25 09:59 | XR_ITS ---
WS: [id number] Exam: XR chest 1V portable [id number] Date/Time of Exam: 08/25/2021 9:59 AM Reason For Exam: pacemaker placement Comparison 08/05/2021. The lungs are hyperinflated and clear. Heart size is normal. Signs of previous median sternotomy. The mediastinum is not widened. Bony structures are intact. No obvious pleural effusion. XR/XR chest 1V portable [id number] IMPRESSION: 1. Pulmonary hyperinflation which might indicate obstructive lung disease. 2. No acute process noted.
--- NOTE | 2021-08-25 10:30 | PC.CHAP ---
Pastoral Care Encounter/Spiritual Assessment Type of Contact [] Declined surgical instruments inspector visit [] Patient/Family/Request visit [] Outpatient visit [] Follow-up visit [] Physician referral [] Code/Alert [x] Routine visit [] Staff referral [] Actively dying [] Patient sleeping [] Family support [] [] Out of room [] Palliative care [] [x] Receiving care in room [] Pre-surgical visit [] Trauma [] Long length of stay [x] ICU visit [] Other: Relational/Emotional Strength [] Patient feels connected with others/family/visitors/staff [] Distress [] Loneliness/isolation [] Abandonment Spirituality of Patient [] Person of Blanche [] Attends Presybeterian of their Blanche [] Believes in Prayer [] Reads Bible or Caodaism materials [] There are Spiritual issues to be addressed Paper Products Supervisor Interventions [x] Prayer [x] Active listening [x] Non-anxious presence [x] Spiritual/emotional support [] Crisis/trauma care [] Spiritual counseling [] Bereavement support [] Provided bereavement packet [] Provided Bible/devotional materials [] Provided toy/stuffed animal, coloring book to patient or family member [] Provided Communion [] Anointing/[place] [] Salvation [x] Completed spiritual assessment [] Other: Impact on Illness or Injury [] Angry [] Fearful [] Anxious [] Often cries [] Exhaustion [] Unable to work [] Unable to attend religion [] Unable to walk/stand [] Unable to read [] Unable to drive [] Unable to eat/drink [] Unable to sleep [] Unable to be with family [] Patient intubated [] Other: Summary patient preparing for heart pace maker... on a temp currently.. .. very interesting.. has blanche regarding procedure Time spent with patient 10 min
[2021-08-25] MEDS: ondansetron 2 mg/ML SDV 2 mL 4 MG IVP (11:29)
--- NOTE | 2021-08-25 12:00 | CT_ITS ---
WS: [id number] CT ABDOMEN AND PELVIS NONCONTRAST HISTORY: increase WBC TECHNIQUE: Imaging performed through the abdomen and pelvis. Coronal and sagittal reformats are submi tted. All CT scans at [facility] use at least one of these dose optimization techniques: auto mated exposure control; mA and/or kV adjustment per patient size (includes targeted exams where dose is matched to clinical indication); or iterative reconstruction. DLP: 1405.29 mGy.cm COMPARISON: 03/05/2019 Lower thorax: Emphysematous changes at the lung bases. Heart is normal size. Prior CABG. Very small h iatal hernia. Liver: Mild hepatic steatosis. There are a few scattered granulomata and a few small low-attenuation masses. There is a well-circumscribed stable low-attenuation mass along the medial RIGHT lobe of the liver measuring 2.7 x 2.6 cm. This was thought to be related to the adrenal gland also appears to be invading into the liver. Suspect this could be a small hepatic cyst although Hounsfield units are neg ative. May be associated with the adrenal gland. Nevertheless, long-term stability. Gallbladder: Normal gallbladder. Pancreas: Normal size and attenuation. Normal pancreatic duct. No pancreatitis or mass. Spleen: Normal size with granulomata. Adrenal glands: No change in appearance of the adrenal glands. Right kidney: Mild perinephric stranding and cortical thinning. Left kidney: Perinephric stranding. No obstruction. Aorta: Mild atherosclerosis abdominal aorta with no aneurysm. Very small amount of free fluid in the dependent or signal of the pelvis and along the RIGHT inguinal region. Patient has a wire extending through the RIGHT femoral vein through the IVC to the heart. Pr obably a temporary pacer. GI tract: There is extensive air and fluid distention of the colon. No obstructive pattern. Postsurgi isidoro changes are noted in the colon. No obstruction at the anastomosis. Abdominal wall: Negative. No hernia. Pelvis: Small amount of free fluid in the pelvis. Inguinal canals are patent bilaterally. Osseous structures: Mild bilateral hip joint arthritis. CT/CT abdomen pelvis wo con [id number] IMPRESSION: 1. Moderate diffuse ileus. There is fluid and air distention throughout the co jimi with no obstructive pattern. 2. No free air. 3. Very tiny amount of free fluid in the pelvis. 4. Perinephric stranding around each kidney with no obstruction.
[2021-08-25] MEDS: dextrose 5%-sod chloride 0.45% 1,000 ML 75 ML IV (12:32)
[2021-08-25 13:19] LABS: Hematocrit 55.6 % (42.0-52.0); Hemoglobin 17.7 g/dL (11.7-16.6); Mean Corpuscular HGB Conc 31.8 g/dL (30.0-36.0); Mean Corpuscular Hemoglobin 31.2 pg (28.0-34.0); Mean Corpuscular Volume 97.9 fl (80-94); Mean Platelet Volume 10.7 fL (7.4-10.4); Platelet Count 153 10^3/cmm (130-400); Red Blood Count 5.68 10^6/uL (4.1-5.3); White Blood Count 11.9 10^3/uL (4.0-10.0)
--- NOTE | 2021-08-25 13:21 | P.PN_ITS ---
Subjective Subjective: Interval history: Seen this morning. He denies any complaints from overnight. He states he is just waiting to get his pacemaker placed this morning. Patient has temporary pacemaker in place. He denies cough, shortness of breath, chest pain, abdominal pain. Does continue to have diarrhea. He states this is a chronic issue for him for years and years he has struggled with this. Usually uses Imodium at home. He says it does slow down with the Imodium and sometimes he gets constipated with the Imodium. He denies any abdominal cramping. He states ever since he had his bowel surgery years ago he has struggled with diarrhea. He states this is not a new thing for him. Patient also adds to say that he is not concerned about the diarrhea at all. Vitals/I&O/Wt Last Vital Signs Temp 98.2 F 08/25/21 07:00 Pulse 81 08/25/21 10:30 Resp 21 H 08/25/21 10:30 BP 143/85 08/25/21 10:30 Pulse Ox 96 08/25/21 10:30 08/24/21 08/25/21 08/25/21 22:59 06:59 14:59 Intake Total 468 / 1018 150 / 1168 52 / 52 Output Total 450 / 1300 400 / 1700 Balance 18 / -282 -250 / -532 52 / 52 Physical Exam Narrative: EXAM NARRATIVE: General: Alert oriented x3, patient seen this morning resting comfortably in bed. HEENT: Normocephalic, atraumatic, EOMI, breathing room air, normal respiratory effort. Cardio: Regular rate rhythm, normal S1-S2, no gross murmurs Respiratory: Mildly diminished bilateral air entry, no gross wheezes or rhonchi appreciated. GI: Abdomen soft, nontender, Behavior: Appropriate and cooperative Extremities: no edema, no cyanosis Data : 08/25/21 12:48 08/25/21 03:13 Micro: Microbiology 08/25/21 12:40 Blood Culture - Preliminary Blood SPECIMEN COLLECTED 08/25/21 12:48 Blood Culture - Preliminary Blood SPECIMEN COLLECTED 08/24/21 14:30 C.difficile Toxin B Gene (PCR) - Final Stool - Stool Aspirate A&P Assessment and plan (1) Complete heart block: Status: Acute (2) Diabetes: Status: Acute Qualifiers: Diabetes mellitus type: type 2 Diabetes mellitus terminologist insulin use: without [facility] use Diabetes mellitus complication status: with hyperglycemia Qualified Code(s): E11.65 - Type 2 diabetes mellitus with hyperglycemia (3) Hypertension: Status: Acute Qualifiers: Hypertension type: essential hypertension Qualified Code(s): I10 - Essential (primary) hypertension (4) Near syncope: Status: Acute (5) Mixed hyperlipidemia: Status: Acute (6) Syncope and collapse: Status: Acute Additional A&P Information #Third-degree heart block, awaiting pacemaker #Syncopal events in recent past status post temporary pacemaker placement 12?[address] Cobian #Hypertension #Hyperlipidemia #Diabetes #Status post aortic valve replacement in the past #Chronic diarrhea ?Patient is n.p.o. since midnight for pacemaker placement today. He appears euvolemic. ?Patient does have chronic diarrhea and is again having diarrhea during hospital stay. WBC count slightly elevated at 13,000 down to 12,000 down to 11,000. Looking at his trend of white counts at previous hospital admissions he has been around that range as well. He does state that ever since he had his bowel surge ry years ago he has struggled with chronic diarrhea and takes Imodium for it at home. He is not concerned about the diarrhea today. C. difficile was checked which was negative at this admission. Dr. Desai is ordered a CBC with manual differential to look for bandemia. We have also ordered a CT abdomen pelvis without contrast to see if there is any underlying acute pathology. It seems patient's diarrhea is chronic diarrhea and being afebrile and not having any clinical signs of abdominal infection. Urine culture also ordered. -Discussed with Dr. Desai. Plan is to take him for pacemaker placement today at around 4 PM. Since patient has been n.p.o. we will start D5 half-normal saline. ?Sliding scale insulin for diabetes. -He is on losartan 50 at home for his hypertension. We will continue after pacemaker placement. It has been held for now. DVT prophylaxis also being held for now due to procedure today. Plavix also held today due to procedure today. Will restart afterwards. He was on atenolol 100 mg daily at home. That has been stopped at this point. Full code DVT prophylaxis: Held Diet n.p.o. for now. Will resume cardiac diet after pacemaker placement today. Attestations Medical Necessity Statement*: > 24 hour stay Coding Level of Care Code Acute Loss Prevention Coordinator for Chg Fwd Diagnoses Complete heart block I44.2 Diabetes E11.65 Diabetes mellitus type: type 2 Diabetes mellitus [facility] insulin use: without [facility] use Diabetes mellitus complication status: with hyperglycemia Hypertension I10 Hypertension type: essential hypertension Near syncope R55 Mixed hyperlipidemia E78.2 Syncope and collapse R55
--- NOTE | 2021-08-25 13:36 | P.PN_ITS ---
Subjective Subjective: Interval history: This patient is admitted to hospital with recurrent episodes of syncope/near syncope. He was found to have evidence of complete heart block on the telemetry. He had a temporary pacemaker insertion through the right femoral vein. Currently he seems to be fairly stable. Telemetry shows intermittent demand V pacing. Denies any chest pain or chest tightness. No shortness of breath. No fever or chills. No cough. He has been having loose bowel movements several times a day. This according the patient is chronic, ever since his bowel surgery. He has no foul-smelling stools. No fever or chills. He also has a chronically elevated white cell count. No signs of infection. Medications: Reviewed: Yes Medication Review Details: Current Medications Acetaminophen (Acetaminophen 325 Mg Tablet) 325 mg PO Q4H PRN PRN Reason: MILD PAIN OR INCREASE TEMP Albuterol/Ipratropium (Ipratropium-Albuterol 3 Ml Neb) 3 ml INHALATION Q6H PRN PRN Reason: SHORTNESS OF BREATH Dextrose/Sodium Chloride (Dextrose 5%-Sod Chloride 0.45%) 1,000 mls @ 75 mls/hr IV .[id number] GIOVANNA Last Admin: 08/25/21 12:32 Dose: 75 mls/hr Documented by: Loperamide HCl (Loperamide 2 Mg Capsule) 2 mg PO BID PRN PRN Reason: DIARRHEA Last Admin: 08/24/21 16:01 Dose: 2 mg Documented by: Ondansetron HCl (Ondansetron 2 Mg/Ml Sdv 2 Ml) 4 mg IVP Q4H PRN PRN Reason: NAUSEA AND VOMITING Last Admin: 08/25/21 11:29 Dose: 4 mg Documented by: Vitals/I&O/Wt Last Vital Signs Temp 98.2 F 08/25/21 07:00 Pulse 81 08/25/21 10:30 Resp 21 H 08/25/21 10:30 BP 143/85 08/25/21 10:30 Pulse Ox 96 08/25/21 10:30 08/24/21 08/25/21 08/25/21 22:59 06:59 14:59 Intake Total 468 / 1018 150 / 1168 52 / 52 Output Total 450 / 1300 400 / 1700 Balance 18 / -282 -250 / -532 52 / 52 Physical Exam Narrative: EXAM NARRATIVE: GENERAL: The patient is alert and oriented times three. Not in any acute distress. HEENT: No significant pallor, icterus or lymphadenopathy.Oral cavity: There are no mucous membrane lesions. NECK: Trachea appears to be central. No masses noted. No JVD or thyromegaly appreciated. RESPIRATORY: Chest is symmetrical. No intercostals muscle retraction or any accessory muscle activation. There is no chest wall tenderness. Breath sounds are heard bilaterally. No rales or rhonchi heard. No evidence of any consolidation. BREASTS: Deferred. HEART: The heart sounds are normal. No S3 or S4. Short systolic murmur at the aortic area. No diastolic murmurs.. No pericardial rub ABDOMEN: No vessel pulsations or distention. No tenderness. No organomegaly appreciated. Bowel sounds are normally heard. : Deferred. RECTAL: Deferred. LYMPHATIC: No lymphadenopathy noted in the neck or groin. EXTREMITIES: No edema or cyanosis. No clubbing. Peripheral pulses are palpated in fairly good volume and amplitude MUSCULOSKELETAL: No acute joint deformities or swelling SKIN: There are no significant rashes or ecchymosis NEUROPSYCHIATRIC: The patient is alert and oriented x3. Appears to be in a good mood. No tremors or rigidity noted. Data : 08/26/21 04:17 08/26/21 04:17 Micro: Microbiology 08/25/21 12:40 Blood Culture - Preliminary Blood SPECIMEN COLLECTED 08/25/21 12:48 Blood Culture - Preliminary Blood SPECIMEN COLLECTED 08/24/21 14:30 C.difficile Toxin B Gene (PCR) - Final Stool - Stool Aspirate A&P Assessment and plan (1) Complete heart block: For further management of the patient's condition, he requires a permanent pacemaker plantation. He would benefit from a dual-chamber pacemaker for AV synchrony and symptom management. The risk of bleeding, hematoma, vascular injury, pneumothorax, infection, renal failure and other concomitant complications were explained in detail. The patient understood this well and consented to proceed. We will make the arrangements to have it done as early as possible Status: Acute (2) Elevated white blood cell count: This appears to be chronic and stable with no recent changes. No signs of infection. Urinalysis is pending Status: Acute Qualifiers: Leukocytosis type: other Qualified Code(s): D72.828 - Other elevated white blood cell count (3) ASHD (arteriosclerotic heart disease): He appears to be stable. May continue on the current medications. Status: Acute (4) Mixed hyperlipidemia: May continue on the current medicines Status: Acute (5) Diabetes: Status: Acute Qualifiers: Diabetes mellitus complication status: with hyperglycemia Diabetes mellitus skilled nursing insulin use: without skilled nursing use Diabetes mellitus type: type 2 Qualified Code(s): E11.65 - Type 2 diabetes mellitus with hyperglycemia (6) Hypertension: Status: Acute Qualifiers: Hypertension type: essential hypertension Qualified Code(s): I10 - Essential (primary) hypertension (7) H/O aortic valve replacement: The valve function appears to be appropriate. Patient also was found to have normal ejection fraction by echocardiogram a year ago. 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 No recent changes. Status: Acute Additional A&P Information Addendum: The urinalysis revealed a features of UTI. For this reason, the pacemaker implantation was canceled. Patient is started on IV antibiotics. We may repeat the urine analysis and CBC tomorrow. I explained to the patient the current clinical condition and the need to postpone the pacemaker implantation. Patient and his family understood this well Attestations Medical Necessity Statement*: In view of the patient's symptomatic heart block, he has a class I indication for permanent pacer implantation. Patient requires continued hospital stay for close monitoring and further management Coding Level of Care Code Acute Pressfitter for Chg Fwd History Detailed Exam Detailed Medical Decision Making High Complexity Diagnoses Complete heart block I44.2 Elevated white blood cell count D72.828 Leukocytosis type: other ASHD (arteriosclerotic heart disease) I25.10 Mixed hyperlipidemia E78.2 Diabetes E11.65 Diabetes mellitus complication status: with hyperglycemia Diabetes mellitus skilled nursing insulin use: without skilled nursing use Diabetes mellitus type: type 2 Hypertension I10 Hypertension type: essential hypertension H/O aortic valve replacement Z95.2 Diarrhea following gastrointestinal surgery R19.7; Z98.890
[2021-08-25 13:45] LABS: Absolute Eosinophils 0.1 10^3/cmm (0.0-0.7); Band Neutrophils Absolute 0.6 10^3/cmm (0.0-1.2); Eosinophils 1 %; Lymphocytes 18 %; Monocytes Absolute 1.1 10^3/cmm (0.1-0.6); Segmented Neutrophils 67 %; Total Cells Counted 100 (0-100)
[2021-08-25 13:46] LABS: Absolute Neutrophil 8.6 10^3/cmm (1.4-6.5); Lymphocytes Absolute 2.1 10^3/cmm (1.2-3.4); Platelet Estimate Normal (Normal)
[2021-08-25 14:27] LABS: Add Urine Microscopic? YES; Bilirubin Urine Neg (Negative); Blood Urine 2+ (Negative); Glucose Urine UA Norm (Normal); Ketones Urine Negative (Negative); Leukocyte Esterase Urine Trace (Negative); Nitrate Urine Positive (Negative); Protein Urine 1+ (Negative); Specific Gravity, Urine 1.025 (1.005-1.030); Urine Appearance Clear (CLEAR); Urine Color Yellow (Yellow); Urobilinogen Urine Norm (Negative); pH Urine 5 (5-7)
[2021-08-25 14:28] LABS: Add Urine Culture? Yes; Bacteria Urine 3+ /hpf; Mucus Urine 2+ /hpf; WBC Urine 25-40 /hpf (0-5)
[2021-08-25] MEDS: vancomycin 1,000 MG in sodium chloride 0.9% 250 ML 250 MG IV (14:48)
[2021-08-25] MEDS: aztreonam 1,000 MG in sodium chloride 0.9% (plus) 50 ML 100 MG IV (17:00)
[2021-08-25] MEDS: enoxaparin 40 mg/0.4 mL Syringe SUBCUT (17:15)
--- NOTE | 2021-08-25 17:47 | PC.NURSE ---
Shift Note Frequent safety and comfort rounds continue. Orders and nursing care completed as indicated. Patient had several frequent liquid bowel movement, physician notified and orders for IV fluids were placed. This nurse rounded with thermostatic controls supervisor on patient's case and new orders were placed for UA, chest x-ray, CBC, and blood cultures x2. After results came back pacemaker placement was postponed for tomorrow morning due to UA results. Antibiotics, Lovenox, and Yeison hose orders were placed Patient monitored for response to intervention and treatments. Education provided includes importance of temporary pacemaker, new medications, and frequent position movement to prevent pressure sore. Patient and son updated on time of procedure and medications administered, verbalized understanding. Will continue to monitor.
[2021-08-25] MEDS: metroNIDAZOLE 500 MG Tablet PO (21:15)
[2021-08-25] MEDS: acetaminophen 325 mg Tablet PO (21:32)
[2021-08-25] MEDS: TRAMadol 50 mg Tablet PO (22:49)
[2021-08-26] VITALS (41 sets, daily range): BP systolic 88–135; BP diastolic 55–84; PULSE 71–80; RESP 15–28; TEMP 36.4–36.7; O2SAT 90–99
--- NOTE | 2021-08-26 | SCC_ITS ---
Procedure Done: Micra AV pacemaker implantation 817.2 seconds of fluoroscopic guidance, for a cumulative dose of 465.65 mGy, was provided to Dr. Rocha by the radiology department. C-arm images of the chest were saved for the patient's permanent record. [facility]
[2021-08-26] MEDS: dextrose 5%-sod chloride 0.45% 1,000 ML 75 ML IV ×2 (03:16→15:07)
[2021-08-26] MEDS: aztreonam 1,000 MG in sodium chloride 0.9% (plus) 50 ML 100 MG IV ×2 (03:38→17:42)
[2021-08-26 04:58] LABS: Basophils % 0.4 %; Eosinophils # 0.1 10^3/uL (0.0-0.8); Eosinophils % 1.3 %; Hematocrit 55.3 % (42.0-52.0); Hemoglobin 16.9 g/dL (11.7-16.6); Lymphocytes # 2.3 10^3/uL (0.8-4.8); Mean Corpuscular HGB Conc 30.6 g/dL (30.0-36.0); Mean Corpuscular Hemoglobin 31.1 pg (28.0-34.0); Mean Corpuscular Volume 101.7 fl (80-94); Mean Platelet Volume 10.4 fL (7.4-10.4); Monocytes # 0.8 10^3/uL (0.2-0.9); Monocytes % 8.7 %; Neutrophils # 5.92 10^3/uL (1.8-7.7); Neutrophils % 64.4 %; Nucleated Red Blood Cells % 0 %; Platelet Count 137 10^3/cmm (130-400); Red Blood Count 5.44 10^6/uL (4.1-5.3); Red Cell Distribution Width 13.9 % (12.1-15.1); White Blood Count 9.2 10^3/uL (4.0-10.0)
[2021-08-26 05:29] LABS: Blood Urea Nitrogen 15 mg/dL (8-23); Calcium 8.3 mg/dL (8.5-10.5); Carbon Dioxide 16 mmol/L (22-29); Chloride 104 mmol/L (98-107); Glomerular Filtration Rate 66.2 mL/min (90-130); Glucose 173 mg/dL (65-115); Osmolality Calculated 283 mOsm/kg (285-295); Sodium 134 mmol/L (136-145)
[2021-08-26 05:30] LABS: Magnesium 1.6 mg/dL (1.7-2.3)
[2021-08-26 05:31] LABS: Anion Gap 18.4 (5-19); Potassium 4.4 mmol/L (3.5-5.1)
--- NOTE | 2021-08-26 08:26 | XR_ITS ---
WS: [id number] Exam: XR KUB portable [id number] Date/Time of Exam: 08/26/2021 8:54 AM Reason For Exam: assess for ileus Compared to recent abdominal and pelvic CT scan performed 08/25/2021. There are scattered gas in both large and small bowel loops suggesting adynamic ileus. No obstructive pattern is seen. No free air. No sign of obvious organ enlargement. A vascular line is noted probabl y originating in the right common femoral vein and extending cephalad into the right heart. It probab ly ends in the right atrium. Osseous elements are intact. Moderate DJD of both hips. XR/XR KUB portable [id number] IMPRESSION: 1. Findings suggest adynamic ileus. 2. No obstructive pattern or free air.
--- NOTE | 2021-08-26 09:10 | P.PN_ITS ---
Subjective Subjective: Interval history: Patient is somewhat restless to go home. Says he is tired of laying around here. Denies any chest pain or shortness of breath. Continues to remain afebrile. The white cell count returned to normal today. Repeat urinalysis pending Medications: Reviewed: Yes Medication Review Details: Current Medications Acetaminophen (Acetaminophen 325 Mg Tablet) 325 mg PO Q4H PRN PRN Reason: MILD PAIN OR INCREASE TEMP Last Admin: 08/25/21 21:32 Dose: 325 mg Documented by: Albuterol/Ipratropium (Ipratropium-Albuterol 3 Ml Neb) 3 ml INHALATION Q6H PRN PRN Reason: SHORTNESS OF BREATH Enoxaparin Sodium (Enoxaparin 40 Mg/0.4 Ml Syringe) 40 mg SUBCUT Q24H [facility] Last Admin: 08/25/21 17:15 Dose: 40 mg Documented by: Dextrose/Sodium Chloride (Dextrose 5%-Sod Chloride 0.45%) 1,000 mls @ 75 mls/hr IV .[id number] [facility] Last Admin: 08/26/21 03:16 Dose: 75 mls/hr Documented by: Sodium Chloride (Sodium Chloride 0.9%) 1,000 mls @ 75 mls/hr IV .[id number] [facility] Last Admin: 08/26/21 01:00 Dose: Not Given Documented by: Aztreonam 1,000 mg/ Sodium (Chloride) 50 mls @ 100 mls/hr IV Q12H GIOVANNA; Protocol Last Infusion: 08/26/21 04:14 Dose: Infused Documented by: Metronidazole (Metronidazole 500 Mg Tablet) 500 mg PO TID [facility] Last Admin: 08/25/21 21:15 Dose: 500 mg Documented by: Ondansetron HCl (Ondansetron 2 Mg/Ml Sdv 2 Ml) 4 mg IVP Q4H PRN PRN Reason: NAUSEA AND VOMITING Last Admin: 08/25/21 11:29 Dose: 4 mg Documented by: Tramadol HCl (Tramadol 50 Mg Tablet) 50 mg PO Q6H PRN PRN Reason: MODERATE TO SEVERE PAIN Last Admin: 08/25/21 22:49 Dose: 50 mg Documented by: Vitals/I&O/Wt Last Vital Signs Temp 98.1 F 08/26/21 07:00 Pulse 77 08/26/21 08:00 Resp 23 H 08/26/21 08:00 BP 115/71 08/26/21 08:00 Pulse Ox 96 08/26/21 08:00 08/25/21 08/26/21 08/26/21 22:59 06:59 14:59 Intake Total 300 / 352 1050 / 1402 Output Total 175 / 375 550 / 925 100 / 100 Balance 125 / -23 500 / 477 -100 / -100 Physical Exam Narrative: EXAM NARRATIVE: GENERAL: The patient is alert and oriented times three. Not in any acute distress. HEENT: No significant pallor, icterus or lymphadenopathy.Oral cavity: There are no mucous membrane lesions. NECK: Trachea appears to be central. No masses noted. No JVD or thyromegaly appreciated. RESPIRATORY: Chest is symmetrical. No intercostals muscle retraction or any accessory muscle activation. There is no chest wall tenderness. Breath sounds are heard bilaterally. No rales or rhonchi heard. No evidence of any consolidation. BREASTS: Deferred. HEART: The heart sounds are normal. No S3 or S4. Short systolic murmur at the aortic area. No diastolic murmurs.. No pericardial rub ABDOMEN: No vessel pulsations or distention. No tenderness. No organomegaly appreciated. Bowel sounds are normally heard. : Deferred. RECTAL: Deferred. LYMPHATIC: No lymphadenopathy noted in the neck or groin. EXTREMITIES: No edema or cyanosis. No clubbing. Peripheral pulses are palpated in fairly good volume and amplitude MUSCULOSKELETAL: No acute joint deformities or swelling SKIN: There are no significant rashes or ecchymosis NEUROPSYCHIATRIC: The patient is alert and oriented x3. Appears to be in a good mood. No tremors or rigidity noted. Data : 08/27/21 04:21 08/27/21 04:21 Micro: Microbiology 08/25/21 Unknown Urine Culture - Preliminary Urine,Voided Gram Negative Rods 08/25/21 12:40 Blood Culture - Preliminary Blood SPECIMEN COLLECTED 08/25/21 12:48 Blood Culture - Preliminary Blood SPECIMEN COLLECTED A&P Assessment and plan (1) Complete heart block: For further management of the patient's condition, he requires a permanent pacemaker plantation. He would benefit from a dual-chamber pacemaker for AV synchrony and symptom management. The risk of bleeding, hematoma, vascular injury, pneumothorax, infection, renal failure and other concomitant complications were explained in detail. The patient understood this well and consented to proceed. In view of the patient's UTI, chronic diarrhea and high risk for repeat infections he may benefit from a leadless pacing system. Status: Acute (2) Elevated white blood cell count: White cell count has returned to normal at this point. So most likely this is related to the UTI. The blood culture is pending Status: Acute Qualifiers: Leukocytosis type: other Qualified Code(s): D72.828 - Other elevated white blood cell count (3) ASHD (arteriosclerotic heart disease): He appears to be stable. May continue on the current medications. Status: Acute (4) Mixed hyperlipidemia: May continue on the current medicines Status: Acute (5) Diabetes: Status: Acute Qualifiers: Diabetes mellitus complication status: with hyperglycemia Diabetes mellitus penitentiary insulin use: without penitentiary use Diabetes mellitus type: type 2 Qualified Code(s): E11.65 - Type 2 diabetes mellitus with hyperglycemia (6) Hypertension: Patient is currently normotensive Status: Acute Qualifiers: Hypertension type: essential hypertension Qualified Code(s): I10 - Essential (primary) hypertension (7) H/O aortic valve replacement: The valve function appears to be appropriate. Patient also was found to have normal ejection fraction by echocardiogram a year ago. 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 No recent changes. Status: Acute Additional A&P Information Other problems are as outlined before. The urinary is also came back normal. I discussed with Dr. Rocha about the Micra. This patient may be an ideal candidate because of his high risk for device infection. Discussed this also with the patient which he understood well and consented to proceed. Dr. Rocha is agreeable to do this procedure Attestations Medical Necessity Statement*: Patient requires continued hospital stay for close monitoring and further management Coding Level of Care Code Acute Supervisor Heavy Equipment for Chg Fwd History Detailed Exam Detailed Medical Decision Making Moderate Complexity Diagnoses Complete heart block I44.2 Elevated white blood cell count D72.828 Leukocytosis type: other ASHD (arteriosclerotic heart disease) I25.10 Mixed hyperlipidemia E78.2 Diabetes E11.65 Diabetes mellitus complication status: with hyperglycemia Diabetes mellitus penitentiary insulin use: without buttermaker use Diabetes mellitus type: type 2 Hypertension I10 Hypertension type: essential hypertension H/O aortic valve replacement Z95.2 Diarrhea following gastrointestinal surgery R19.7; Z98.890
[2021-08-26] MEDS: metroNIDAZOLE 500 MG Tablet PO ×3 (09:12→20:18)
--- NOTE | 2021-08-26 09:14 | ECG_ITS ---
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
[2021-08-26 09:21] LABS: Bilirubin Urine Neg (Negative); Blood Urine 2+ (Negative); Glucose Urine UA Norm (Normal); Ketones Urine Negative (Negative); Leukocyte Esterase Urine Negative (Negative); Nitrate Urine Negative (Negative); Protein Urine Neg (Negative); Urine Appearance Clear (CLEAR); Urine Color Yellow (Yellow); Urobilinogen Urine Norm (Negative); pH Urine 5 (5-7)
[2021-08-26 09:26] LABS: Add Urine Culture? No; Bacteria Urine TRACE /hpf; RBC Urine 0-4 /hpf (0-2); WBC Urine 0-4 /hpf (0-5)
--- NOTE | 2021-08-26 14:20 | ANES.PREANE2 ---
Pre-Anesthetic Assessment Pre-Anesthetic Assessment: Height/Weight: Height 1.96 m Weight 104.326 kg Temp Pulse Resp BP Pulse Ox 98.0 F 74 21 H 124/73 98 08/26/21 11:00 08/26/21 12:57 08/26/21 12:00 08/26/21 12:00 08/26/21 12:00 Preop Diagnosis: Intermittent Complete heart block with no escape rhythm Proposed Procedure: Operation Date: 08/23/21 10:30 Proposed Procedures p Temporary Pacemaker Placement(Not Applicable) - Abhi Cobian M.D Operation Date: 08/26/21 15:50 Proposed Procedures p Pacemaker Insertion(Not Applicable) - Shankar Rocha MD Was Beta Dennise taken within 24 hours: N/A Was Clonidine taken within 24 hours: N/A Social: Social History: Tobacco and No alcohol Exam: Pre-Anes Outpt Exam: alert, oriented x 3, clear to auscultation bilaterally and regular rate & rhythm Airway: Submandibular: WNL Cervical ROM: WNL MP: 2 Dentition: Full Pulmonary: Pulmonary: COPD and NANCE CV/HEM: CV/HEM: Arrythmia (complete heart block), HTN and Murmur Comments: S/P AVR Sycnope Echo Report 08/23/21 CONCLUSIONS LV systolic function is normal with EF 55 to 60%. Diastolic function is normal. No gross valvular abnormalities. Compared to prior echocardiogram from 01/19/2020, no significant changes are noted. Echo Report 2019 CONCLUSIONS Normal left ventricular size and systolic function, EF 74 %. Grade I/IV diastolic dysfunction (abnormal relaxation filling pattern), normal to mildly elevated filling pressures. Aortic valve appears to be well-seated within normal leaflet motion. The peak velocity across the aortic valve 1.5 m/s. The peak gradient was 9 mmHg. Thickened mitral valve. There is no pericardial effusion. There are no intracardiac masses. No significant stenotic or regurgitant lesions were noted Compared to the previous study from a 12/23/2018, the aortic valve has been replaced. No other significant changes were noted : Comments: Recent UTI Hepatic: Hepatic: None reported GI: Comments: Chronic diarreha Metabolic: Metabolic: DM Musc/skel: Musc/skel: None reported Neuropsych: Neuropsych: Syncope (Correlating with complete heart block on Holter) Comments: 08/[address] report FINDINGS: Brain: Mild diffuse white matter disease likely reflecting chronic microvascular ischemic changes. Cerebral ventricles: No ventriculomegaly. Paranasal sinuses: Paranasal sinus opacifications. Mastoid air cells: Visualized mastoid air cells are well aerated. Bones/joints: Unremarkable. No acute fracture. Soft tissues: Unremarkable. Anesthetic Plan: ASA status: 4 Anesthesia: MAC Risk of > 500 ml blood loss (7ml/kg in children): No Meds/Allergies Current Medications: Current Medications Generic Name Dose Route Start Last Admin Trade Name Freq PRN Reason Stop Dose Admin Acetaminophen 325 mg 08/22/21 19:55 08/25/21 21:32 Acetaminophen 32 5 Mg Tablet PO 325 mg Q4H PRN Administration MILD PAIN OR INCR EASE TEMP Enoxaparin Sodium 40 mg 08/25/21 17:15 08/25/21 17:15 Enoxaparin 40 Mg /0.4 Ml Syringe SUBCUT 40 mg Q24H GIOVANNA Administration Dextrose/Sodium Ch loride 1,000 mls @ 75 ml s/hr 08/25/21 11:45 08/26/21 03:16 Dextrose 5%-Sod Chloride 0.45% IV 75 mls/hr .[id number] GIOVANNA Administration Sodium Chloride 1,000 mls @ 75 ml s/hr 08/25/21 13:45 08/26/21 01:00 Sodium Chloride 0.9% IV Not Given .[id number] GIOVANNA Aztreonam 1,000 mg / Sodium 50 mls @ 100 mls/ hr 08/25/21 16:30 08/26/21 04:14 Chloride IV Infused Q12H GIOVANNA Infusion Protocol Metronidazole 500 mg 08/25/21 21:00 08/26/21 09:12 Metronidazole 50 0 Mg Tablet PO 500 mg TID GIOVANNA Administration Ondansetron HCl 4 mg 08/22/21 19:55 08/25/21 11:29 Ondansetron 2 Mg /Ml Sdv 2 Ml IVP 4 mg Q4H PRN Administration NAUSEA AND VOMITI NG Tramadol HCl 50 mg 08/25/21 22:23 08/25/21 22:49 Tramadol 50 Mg T ablet PO 50 mg Q6H PRN Administration MODERATE TO SEVER E PAIN PFSH Anesthesia PFSH: Medical History Aortic valve stenosis ASHD (arteriosclerotic heart disease) COPD (chronic obstructive pulmonary disease) Diabetes Close monitoring of the blood sugar and management as per the primary Hypertension Migraine Mixed hyperlipidemia Syncope Surgical History H/O aortic valve replacement History of colon resection Family History Other CAD (coronary artery disease) Social History Smoking and tobacco status: current every day smoker Alcohol intake: never Data Anesthesia CBC & Chem 7: 08/26/21 04:17 08/26/21 04:17 Other Labs: Laboratory Results - last 48 hr 08/25/21 08/25/21 08/25/21 03:13 03:13 12:48 WBC 12.4 H 11.9 H RBC 5.52 H 5.68 H Hgb 17.2 H 17.7 H Hct 53.8 H 55.6 H MCV 97.5 H 97.9 H MCH 31.2 31.2 MCHC 32.0 31.8 RDW 13.9 14.0 Plt Count 156 153 MPV 10.2 10.7 H Neut % (Auto) 65.7 Lymph % (Auto) 24.1 [place] % (Auto) 6.9 Eos % (Auto) 2.3 Baso % (Auto) 0.4 Neut # (Auto) 8.14 H Lymph # (Auto) 3.0 [place] # (Auto) 0.9 Eos # (Auto) 0.3 Baso # (Auto) 0.1 Nucleated RBC % (auto) 0 Total Counted 100 Atypical Lymphs % 0.0 Absolute Neutrophils 8.6 H Segmented Neutrophils 67 Abs Segm Neuts (Man) 8.0 H Band Neutrophils 5.0 Abs Band Neuts (Man) 0.6 Absolute Lymphocytes 2.1 Lymphocytes (Manual) 18 Monocytes (Manual) 9.0 Absolute Monocytes 1.1 H Eosinophils (Manual) 1 Absolute Eosinophils 0.1 Basophils (Manual) 0.0 Absolute Basophils 0.0 Nucleated RBCs # 0.0 Platelet Estimate Normal Sodium 137 Potassium 4.2 Chloride 106 Carbon Dioxide 17 L Anion Gap 18.2 BUN 15 Creatinine 1.1 GFR Calculation 66.2 L Glucose 155 H Calculated Osmolality 288 Calcium 8.5 Magnesium 1.7 Urine Color Urine Appearance Urine pH Ur Specific [place] Urine Protein Urine Glucose (UA) Urine Ketones Urine Blood Urine Nitrate Urine Bilirubin Urine Urobilinogen Ur Leukocyte Esterase Urine RBC Urine WBC Ur Squamous Epith Cells Amorphous Sediment Urine Bacteria Urine Mucus 08/25/21 08/26/21 08/26/21 Unknown 04:17 04:17 WBC 9.2 RBC 5.44 H Hgb 16.9 H Hct 55.3 H MCV 101.7 H MCH 31.1 MCHC 30.6 RDW 13.9 Plt Count 137 MPV 10.4 Neut % (Auto) 64.4 Lymph % (Auto) 25.0 [place] % (Auto) 8.7 Eos % (Auto) 1.3 Baso % (Auto) 0.4 Neut # (Auto) 5.92 Lymph # (Auto) 2.3 [place] # (Auto) 0.8 Eos # (Auto) 0.1 Baso # (Auto) 0.0 Nucleated RBC % (auto) 0 Total Counted Atypical Lymphs % Absolute Neutrophils Segmented Neutrophils Abs Segm Neuts (Man) Band Neutrophils Abs Band Neuts (Man) Absolute Lymphocytes Lymphocytes (Manual) Monocytes (Manual) Absolute Monocytes Eosinophils (Manual) Absolute Eosinophils Basophils (Manual) Absolute Basophils Nucleated RBCs # 0.0 Platelet Estimate Sodium Potassium Chloride Carbon Dioxide Anion Gap BUN Creatinine GFR Calculation Glucose Calculated Osmolality Calcium Magnesium 1.6 L Urine Color Yellow Urine Appearance Clear Urine pH 5 Ur Specific [place] 1.025 Urine Protein 1+ H Urine Glucose (UA) Norm Urine Ketones Negative Urine Blood 2+ H Urine Nitrate Positive H Urine Bilirubin Neg Urine Urobilinogen Norm Ur Leukocyte Esterase Trace H Urine RBC 5-10 H Urine WBC 25-40 H Ur Squamous Epith Cells 5-10 H Amorphous Sediment Not Reportable Urine Bacteria 3+ H Urine Mucus 2+ 08/26/21 08/26/21 04:17 08:10 WBC RBC Hgb Hct MCV MCH MCHC RDW Plt Count MPV Neut % (Auto) Lymph % (Auto) [place] % (Auto) Eos % (Auto) Baso % (Auto) Neut # (Auto) Lymph # (Auto) [place] # (Auto) Eos # (Auto) Baso # (Auto) Nucleated RBC % (auto) Total Counted Atypical Lymphs % Absolute Neutrophils Segmented Neutrophils Abs Segm Neuts (Man) Band Neutrophils Abs Band Neuts (Man) Absolute Lymphocytes Lymphocytes (Manual) Monocytes (Manual) Absolute Monocytes Eosinophils (Manual) Absolute Eosinophils Basophils (Manual) Absolute Basophils Nucleated RBCs # Platelet Estimate Sodium 134 L Potassium 4.4 Chloride 104 Carbon Dioxide 16 L Anion Gap 18.4 BUN 15 Creatinine 1.1 GFR Calculation 66.2 L Glucose 173 H Calculated Osmolality 283 L Calcium 8.3 L Magnesium Urine Color Yellow Urine Appearance Clear Urine pH 5 Ur Specific [place] 1.020 Urine Protein Neg Urine Glucose (UA) Norm Urine Ketones Negative Urine Blood 2+ H Urine Nitrate Negative Urine Bilirubin Neg Urine Urobilinogen Norm Ur Leukocyte Esterase Negative Urine RBC 0-4 H Urine WBC 0-4 H Ur Squamous Epith Cells 5-10 H Amorphous Sediment Not Reportable Urine Bacteria Trace Urine Mucus Micro: Microbiology 08/25/21 12:40 Blood Culture - Preliminary Blood NEGATIVE TO DATE 08/25/21 12:48 Blood Culture - Preliminary Blood NEGATIVE TO DATE 08/25/21 Unknown Urine Culture - Preliminary Urine,Voided Gram Negative Rods Cardiac Studies: Echocardiogram 08/23/21
--- NOTE | 2021-08-26 14:48 | P.PN_ITS ---
Subjective Subjective: Interval history: Seen this morning. He says he had 1 episode of diarrhea overnight. He says he does get it from time to time. CT abdomen done yesterday showed adynamic ileus but no obstructive pattern. No free air. Very tiny amount of free fluid in the pelvis. Perinephric stranding seen around each kidney with no obstruction. He says he feels well enough that he could even go home today. He is waiting to have the pacemaker placed. WBC count has trended down to normal. Patient is on aztreonam and Flagyl. No acute events reported overnight. He has temporary pacemaker in place. Urine culture growing gram- negative rods. Vitals/I&O/Wt Last Vital Signs Temp 98.0 F 08/26/21 11:00 Pulse 75 08/26/21 14:00 Resp 26 H 08/26/21 14:00 BP 134/79 08/26/21 14:00 Pulse Ox 94 08/26/21 14:00 08/25/21 08/26/21 08/26/21 22:59 06:59 14:59 Intake Total 300 / 352 1050 / 1402 Output Total 175 / 375 550 / 925 300 / 300 Balance 125 / -23 500 / 477 -300 / -300 Physical Exam Narrative: EXAM NARRATIVE: General: Alert oriented x3, patient seen this morning resting comfortably in bed. HEENT: Normocephalic, atraumatic, EOMI, breathing room air, normal respiratory effort. Cardio: Regular rate rhythm, normal S1-S2, no gross murmurs Respiratory: Mildly diminished bilateral air entry, no gross wheezes or rhonchi appreciated. GI: Abdomen soft, nontender, Behavior: Appropriate and cooperative Extremities: no edema, no cyanosis Data : 08/26/21 04:17 08/26/21 04:17 Micro: Microbiology 08/25/21 12:40 Blood Culture - Preliminary Blood NEGATIVE TO DATE 08/25/21 12:48 Blood Culture - Preliminary Blood NEGATIVE TO DATE 08/25/21 Unknown Urine Culture - Preliminary Urine,Voided Gram Negative Rods A&P Assessment and plan (1) Complete heart block: Status: Acute (2) Diabetes: Status: Acute Qualifiers: Diabetes mellitus type: type 2 Diabetes mellitus group home insulin use: without group home use Diabetes mellitus complication status: with hyperglycemia Qualified Code(s): E11.65 - Type 2 diabetes mellitus with hyperglycemia (3) Hypertension: Status: Acute Qualifiers: Hypertension type: essential hypertension Qualified Code(s): I10 - Essential (primary) hypertension (4) Near syncope: Status: Acute (5) Mixed hyperlipidemia: Status: Acute (6) Syncope and collapse: Status: Acute Additional A&P Information #Third-degree heart block, awaiting pacemaker #Syncopal events in recent past status post temporary pacemaker placement 12?[address] Cobian #Hypertension #Hyperlipidemia #Diabetes #Status post aortic valve replacement in the past #Chronic diarrhea #UTI with gram-negative rods, culture sensitivity pending. ?Patient is n.p.o. since midnight for pacemaker placement today. He appears euvolemic. ?Patient does have chronic diarrhea and is again having diarrhea during hospital stay. He does state that ever since he had his bowel surgery years ago he has struggled with chronic diarrhea and takes Imodium for it at home. C. difficile negative Urine culture growing gram-negative rods CT abdomen done yesterday showed perinephric stranding bilaterally with adynamic ileus with no obstruction present. -Discussed with Dr. Desai. Patient will be having a leadless pacemaker placed by Dr. Rocha today afternoon. ?We will continue to treat patient with aztreonam and Flagyl. Will await final culture sensitivity for urine. All questions answered for the patient to his satisfaction. ?Sliding scale insulin for diabetes. -He is on losartan 50 at home for his hypertension. We will continue after pacemaker placement. It has been held for now. DVT prophylaxis also being held for now due to procedure today. Plavix also held today due to procedure today. Will restart afterwards. He was on atenolol 100 mg daily at home. That has been stopped at this point. Full code DVT prophylaxis: Held Diet n.p.o. for now. Will resume cardiac diet after pacemaker placement today. Attestations Medical Necessity Statement*: Potential discharge in a.m. Coding Level of Care Code Acute Director Product Safety for carol Rico Diagnoses Complete heart block I44.2 Diabetes E11.65 Diabetes mellitus type: type 2 Diabetes mellitus long term care social worker insulin use: without long term care social worker use Diabetes mellitus complication status: with hyperglycemia Hypertension I10 Hypertension type: essential hypertension Near syncope R55 Mixed hyperlipidemia E78.2 Syncope and collapse R55
--- NOTE | 2021-08-26 14:59 | P.CONIM_ITS ---
Providers/Reason For Consult Consulting Physician/Specialty*: Dr. Rocha/cardiothoracic surgery Reason for Consult*: Third-degree heart block with a junctional escape rhythm/temporary pacemaker in place Attending Physician: Fatuma Gomes MD Primary Care Provider: Alayna Bloom MD History of Present Illness History of Present Illness Toni Riojas is a 71 year old male who we performed a aortic valve replacement on 04/2019. He was admitted upon presentation to the emergency department on August 22 for recurrent syncope which has been difficult to elucidate. On the day of presentation he had another event that morning. Monitoring the emergency department revealed an episode of 10 to 15 seconds of complete heart block narrow complex QRS which was temporally related to the patient's symptoms of severe fatigue and diaphoresis. He was carefully evaluated by Dr. Cobian and Dr. Desai and is felt that he will require permanent pacemaker implantation. He currently has a temporary pacemaker in position, with intermittent use. He has a history of chronic diarrhea and has had diarrhea episodes during his hospitalization. He is C. difficile negative. A gram-negative urinary tract infection was noted. And he is currently on aztreonam and Flagyl. Final cultures are pending. White blood cell count has trended down from a high of 13.9 upon presentation to currently 9.2 today. His most recent urinalysis revealed's negative nitrite which was positive previously. Urine WBC has decreased from 25-40, now down to 0-4. Due to his intermittent episodes of heart block, Dr. Desai feels that pacemaker implantation should proceed, given that his temporary pacemaker remains in position and is limiting mobility and recovery. Echocardiogram reveals preserved LV function. No gross valvular abnormalities are noted. Review of Systems Const: Denies: fever(s), chills, change in appetite, change in weight, fatigue or night sweats Eyes: Denies: change in vision or blurry vision ENMT: Denies: odynophagia or hoarseness Card: Reports: edema, swelling of feet/ankles, lightheadedness, syncope and pre-syncope; Denies: chest pain, palpitations or irregular heart rhythm Resp: Reports: dyspnea; Denies: productive cough GI: Denies: abdominal pain, nausea, vomiting, dysphagia, heartburn or change in bowel habits : Denies: difficulty urinating, dysuria, urinary frequency, urinary urgency or urinary hesitancy Musc: Denies: extremity pain or extremity swelling Skin/Breast: Denies: rash Neuro: Reports: dizziness; Denies: headache(s), numbness in extremities, weakness in extremities or sensory changes Psych: Denies: anxiety, depression or change in appetite Endo: Denies: polyuria, polydipsia or cold intolerance Serge/Lymph: Denies: easy bruising, easy bleeding, petechiae or enlarged lymph nodes Meds/Allergies Home Medications and Allergies Home Medications Medication Instructions Recorded Confirmed Last Taken Type insulin degludec 100 unit/mL (3 40 - 45 unit SUBCUT BEDTIME ml 12/20/19 08/23/21 08/03/21 History mL) subcutaneous pen isosorbide mononitrate 60 mg 60 mg PO QAM 12/20/19 08/23/21 08/04/21 07:00 History tablet,extended release 24 hr nitroglycerin 0.4 mg sublingual 0.4 mg SUBLINGUAL Q5M PRN 12/20/19 08/23/21 Unknown History tablet clopidogrel 75 mg PO QAM 08/04/21 08/23/21 08/04/21 07:00 History liraglutide [Victoza 2-Roberto] 1.2 mg SUBCUT QAM 08/04/21 08/23/21 08/04/21 History simvastatin 20 mg PO BEDTIME 08/04/21 08/23/21 08/03/21 History atenolol 100 mg tablet 100 mg PO DAILY tab 08/21/21 08/23/21 Unknown History losartan 50 mg tablet 50 mg PO QAM tab 08/21/21 08/23/21 Unknown History Allergies Allergy/AdvReac Type Severity Reaction Status Date / Time codeine Allergy Unknown unknown Verified 08/22/21 16:29 Penicillins Allergy Unknown unknown Verified 08/22/21 16:29 Sulfa (Sulfonamide Allergy Unknown unknown Verified 08/22/21 16:29 Antibiotics) Current Medications Current Medications Generic Name Dose Route Start Last Admin Trade Name Freq PRN Reason Stop Dose Admin Acetaminophen 325 mg 08/22/21 19:55 08/25/21 21:32 Acetaminophen 325 Mg Tablet PO 325 mg Q4H PRN Administration MILD PAIN OR INCREASE TEMP Enoxaparin Sodium 40 mg 08/25/21 17:15 08/25/21 17:15 Enoxaparin 40 Mg/0.4 Ml Syringe SUBCUT 40 mg Q24H GIOVANNA Administration Dextrose/Sodium Chloride 1,000 mls @ 75 mls/hr 08/25/21 11:45 08/26/21 03:16 Dextrose 5%-Sod Chloride 0.45% IV 75 mls/hr .[id number] GIOVANNA Administration Sodium Chloride 1,000 mls @ 75 mls/hr 08/25/21 13:45 08/26/21 01:00 Sodium Chloride 0.9% IV Not Given .[id number] GIOVANNA Aztreonam 1,000 mg/ Sodium 50 mls @ 100 mls/hr 08/25/21 16:30 08/26/21 04:14 Chloride IV Infused Q12H GIOVANNA Infusion Protocol Metronidazole 500 mg 08/25/21 21:00 08/26/21 09:12 Metronidazole 500 Mg Tablet PO 500 mg TID GIOVANNA Administration Ondansetron HCl 4 mg 08/22/21 19:55 08/25/21 11:29 Ondansetron 2 Mg/Ml Sdv 2 Ml IVP 4 mg Q4H PRN Administration NAUSEA AND VOMITING Tramadol HCl 50 mg 08/25/21 22:23 08/25/21 22:49 Tramadol 50 Mg Tablet PO 50 mg Q6H PRN Administration MODERATE TO SEVERE PAIN PFSH Acute PFSH: Medical History Aortic valve stenosis ASHD (arteriosclerotic heart disease) COPD (chronic obstructive pulmonary disease) Diabetes Close monitoring of the blood sugar and management as per the primary Hypertension Migraine Mixed hyperlipidemia Syncope Surgical History H/O aortic valve replacement History of colon resection Family History Other CAD (coronary artery disease) Social History Smoking and tobacco status: current every day smoker Alcohol intake: never Vitals/I&O/Wt Last Vital Signs Temp 98.0 F 08/26/21 11:00 Pulse 75 08/26/21 14:00 Resp 26 H 08/26/21 14:00 BP 134/79 08/26/21 14:00 Pulse Ox 94 08/26/21 14:00 08/25/21 08/26/2121 22:59 06:59 14:59 Intake Total 300 / 352 1050 / 1402 Output Total 175 / 375 550 / 925 300 / 300 Balance 125 / -23 500 / 477 -300 / -300 Physical Exam Const: COMMON NORMALS: patient oriented x3 and alert ORIENTATION/CONSCIOUSNESS: Yes oriented to person, Yes oriented to place and Yes oriented to time HENMT: COMMON NORMALS: normocephalic HEAD & SCALP: normocephalic; no cranial bruits Neck/C-Spine: COMMON NORMALS: full ROM, supple, no JVD and No carotid bruits GENERAL: Yes trachea midline CERVICAL SPINE: Yes cervical ROM normal Chest: COMMONS NORMALS: normal inspection of the chest and normal palpation of entire chest wall Resp: COMMON NORMALS: normal respiratory effort, No use of accessory muscles, clear to auscultation bilaterally and percussion normal EFFORT & INSPECTION: Yes able to speak in complete sentences and Yes symmetric chest movement AUSCULTATION: clear to auscultation bilaterally PERCUSSION: percussion normal Cardio: COMMON NORMALS: no JVD, regular rate, regular rhythm, S1 normal heart sound present, S2 normal heart sound present, No gallops present (Cardio), No murmurs present (Cardio), No rub (Cardio) and Peripheral pulses 2+ throughout JUGULAR VENOUS DISTENTION: no JVD RATE: regular rate RHYTHM: regular rhythm HEART SOUNDS: S1 normal heart sound present and S2 normal heart sound present PERIPHERAL PULSES: Peripheral pulses 2+ throughout Extremity: OTHER: Right femoral sheath in position related to temporary pacemaker placement Neuro: COMMON NORMALS: patient oriented x3, no focal motor deficits and no sensory deficits noted SENSORIUM/ORIENTATION: Yes alert, Yes oriented to person, Yes oriented to place and Yes oriented to time GAIT: Yes Normal gait present Data Micro: Micro: Microbiology 08/25/21 12:40 Blood Culture - Pr eliminary Blood NEGATIVE TO CHASITY E 08/25/21 12:48 Blood Culture - Pr eliminary Blood NEGATIVE TO CHASITY E 08/25/21 Unknown Urine Culture - Pr eliminary Urine,Voided Gram Negative R ods A&P Assessment and plan (1) Heart block: Highly symptomatic intermittent third-degree AV heart block, current with temporary pacemaker in place and currently under treatment for UTI. Plan: Given current circumstances, after discussion with Dr. Desai, we will plan to proceed with wireless pacemaker implantation. We will tentatively plan for Micra AV pacemaker placement. Rationale for this was carefully discussed with Alpasebastianleonie. Details and risk of the procedure reviewed. Proper consents have been provided for review and signature. Status: Acute Consult Attestations Medical Necessity Statement: Intermittent, symptomatic third-degree AV heart block, currently with temporary pacemaker in position Time Spent in Patient Care: Greater than 35 minutes Coding Level of Care Code Acute Electrical Installation Supervisor for carol Rico Diagnoses Heart block I45.9
[2021-08-26] MEDS: iohexol 300 mg/mL 100 mL Btl 50 ML IV (15:21)
--- NOTE | 2021-08-26 15:39 | PC.NURSE ---
PT to surgery with OR staff.
[2021-08-26] MEDS: heparin, porcine 1,000 unit/mL INJ 10 mL 10000 UNIT IRRIGATION (16:21)
--- NOTE | 2021-08-26 17:00 | SC_ITS ---
WS: [id number] Exam: C-arm FL for Pacemaker Date/Time of Exam: 08/26/2021 5:00 PM Reason For Exam: PACEMAKER INSERTION Multiple anterior posterior Limited C-arm images of the central chest are submitted for evaluation. The images depict a small battery pack related to the pacemaker superimposing the left heart. Sternal sutures are noted. No other significant finding on this limited series.
--- NOTE | 2021-08-26 17:18 | P.OP_ITS ---
Operative Report Date of procedure: August 26, 2021 Pre-op Diagnosis: Intermittent Complete heart block with no escape rhythm Post-op diagnosis: same Procedure Done: Micra AV pacemaker implantation Implants: Micra AV pacemaker Pathology: none sent Surgeon: Shankar Rocha Anesthesia: MAC and Local Condition: stable Disposition: ICU Brief History: Mr. Riojas is a 71-year-old gentleman who was admitted with intermittent heart block and near syncope with a baseline rhythm of normal sinus. He is status post AVR in 2019. He reports intermittent episodes of near fainting episodes. This was confirmed during telemetry and subsequently a temporary pacemaker was placed to the right femoral approach. Dr. Desai is requested that a wireless system reimplanted related to a diagnosis of UTI in addition to his heart block upon presentation, though the UTI has improved. Mild leukocytosis is also improved. Details of risk of the procedure were carefully and frankly discussed. Appropriate signs have been reviewed and signed. Procedure: Micra AV model number: [id number] Serial number: [id number] RV sensin.0 Impedance: 1290 Threshold: 0.25 The patient was taken to the operating room theater carefully position where he underwent IV conscious sedation with anesthesia monitoring. His entire lower abdomen and groin region down to the knees was sterilely prepped and draped. 1% lidocaine was infiltrated in the right groin after and ultrasound visualization of the right femoral vein. The right femoral vein was entered under ultrasound guidance and a guidewire was placed. After confirmation of guidewire placement, an 8 Togolese sheath was then positioned under fluoroscopic guidance. Guidewire was then replaced with an Amplatz superstiff 0.035 x 180 cm wire. An 11 scalpel blade was utilized to incise the skin. A rfufwc-gy-vjviz silk suture was then placed. 8 Togolese sheath was then removed and replaced with a 23 Togolese delivery sheath. This was positioned at mid right atrial level. Following this, after careful flushing of all components with heparinized saline, and at the time of the delivery of the 23 Togolese sheath, the patient received 3000 units of heparin intravenously. Next, Micra AV pacemaker and its delivery catheter, was passed under fluoroscopic guidance to the end of the 23 Togolese sheath. The sheath was then withdrawn back inferior to the right atrium. The Micra AV pacemaker and delivery catheter then positioned under fluoroscopic guidance across the tricuspid valve and then directed to mid septal level. Proximity with the septum was then confirmed utilizing dilute Omnipaque contrast and a series of VAZQUEZ and ARMENIAN views. Pacemaker was delivered and then tension testing was performed with cine fluoroscopy performed to assess for leo fixation. Following confirmation of fixation, electrical interrogation was then performed. Next, after fixation, retaining string was transected and removed followed by removal of the delivery catheter. Re-interrogation again revealed appropriate parameters. Next, the 23 Togolese sheath was removed with the inbuzg-[id number]-[id number] suture being tied followed by direct pressure being held over the right groin for over 15 minutes and then pressure dressing being applied followed by a sandbag. The patient tolerated procedure well, was awakened from conscious sedation and then transferred to the PACU. Family was counseled at the completion of the procedure.
--- NOTE | 2021-08-26 17:36 | XR_ITS ---
WS: [id number] Exam: XR chest 1V portable [id number] Date/Time of Exam: 08/26/2021 5:50 PM Reason For Exam: s/p pacemaker implantation No priors. The lungs are fully expanded and clear. Heart size is normal. A small battery pack superimposes the l eft heart. The mediastinum is not widened. Signs of previous median sternotomy. No pleural effusions. Bony structures are intact. XR/XR chest 1V portable [id number] IMPRESSION: 1. No acute cardiopulmonary finding.
[2021-08-26 18:02] LABS: Glucose Point of Care 114 mg/dL (70-110)
--- NOTE | 2021-08-26 18:07 | PC.NURSE ---
1730 Patient returned to room from surgery with OR staff.
--- NOTE | 2021-08-26 19:21 | ANE.PACU2 ---
Inpatient post-anesthesia follow up: Airway intact: Yes Vital signs: Temperature 97.6 F Pulse Rate 71 Respiratory Rate 22 Blood Pressure 127/71 Pulse Oximetry 96 Oxygen Delivery Me thod Room Air Oxygen Flow Rate 100 Fraction of Inspir ed Oxygen Hydration adequate: Yes Nausea and vomiting: No Pain level: 3 Mental status: Baseline
[2021-08-26 19:50] LABS: Glucose Point of Care 112 mg/dL (70-110)
[2021-08-27] VITALS (23 sets, daily range): BP systolic 109–152; BP diastolic 58–98; PULSE 70–89; RESP 15–26; TEMP 36.4–36.7; O2SAT 95–98
[2021-08-27] MEDS: aztreonam 1,000 MG in sodium chloride 0.9% (plus) 50 ML 100 MG IV (04:27)
[2021-08-27 05:09] LABS: Basophils % 0.4 %; Eosinophils # 0.2 10^3/uL (0.0-0.8); Eosinophils % 2.7 %; Hematocrit 46.1 % (42.0-52.0); Hemoglobin 15.1 g/dL (11.7-16.6); Lymphocytes # 1.9 10^3/uL (0.8-4.8); Lymphocytes % 22.3 %; Mean Corpuscular HGB Conc 32.8 g/dL (30.0-36.0); Mean Corpuscular Hemoglobin 30.8 pg (28.0-34.0); Mean Corpuscular Volume 93.9 fl (80-94); Mean Platelet Volume 10.7 fL (7.4-10.4); Monocytes # 0.7 10^3/uL (0.2-0.9); Monocytes % 7.7 %; Neutrophils # 5.71 10^3/uL (1.8-7.7); Neutrophils % 66.5 %; Nucleated Red Blood Cells % 0 %; Platelet Count 148 10^3/cmm (130-400); Red Blood Count 4.91 10^6/uL (4.1-5.3); Red Cell Distribution Width 13.5 % (12.1-15.1); White Blood Count 8.6 10^3/uL (4.0-10.0)
[2021-08-27] MEDS: dextrose 5%-sod chloride 0.45% 1,000 ML 75 ML IV (05:21)
[2021-08-27 05:29] LABS: Anion Gap 16.8 (5-19); Blood Urea Nitrogen 11 mg/dL (8-23); Carbon Dioxide 18 mmol/L (22-29); Chloride 105 mmol/L (98-107); Glomerular Filtration Rate 73.9 mL/min (90-130); Glucose 171 mg/dL (65-115); Magnesium 1.4 mg/dL (1.7-2.3); Osmolality Calculated 285 mOsm/kg (285-295); Potassium 3.8 mmol/L (3.5-5.1); Sodium 136 mmol/L (136-145)
[2021-08-27 08:17] LABS: Glucose Point of Care 162 mg/dL (70-110)
[2021-08-27] MEDS: insulin lispro 100 unit/1 mL SUBCUT ×2 (09:32→11:47)
[2021-08-27] MEDS: metroNIDAZOLE 500 MG Tablet PO (09:32)
--- NOTE | 2021-08-27 10:35 | PC.CHAP ---
Pastoral Care Encounter/Spiritual Assessment Type of Contact [] Declined baker visit [] Patient/Family/Request visit [] Outpatient visit [] Follow-up visit [] Physician referral [] Code/Alert [x] Routine visit [] Staff referral [] Actively dying [] Patient sleeping [] Family support [] [] Out of room [] Palliative care [] [] Receiving care in room [] Pre-surgical visit [] Trauma [] Long length of stay [x] ICU visit [] Other: Relational/Emotional Strength [] Patient feels connected with others/family/visitors/staff [] Distress [] Loneliness/isolation [] Abandonment Spirituality of Patient [] Person of Blanche [] Attends Religion of their Blanche [] Believes in Prayer [] Reads Bible or Druze materials [] There are Spiritual issues to be addressed Weatherization Field Technician Interventions [x] Prayer [x] Active listening [x] Non-anxious presence [x] Spiritual/emotional support [] Crisis/trauma care [] Spiritual counseling [] Bereavement support [] Provided bereavement packet [] Provided Bible/devotional materials [] Provided toy/stuffed animal, coloring book to patient or family member [] Provided Communion [] Anointing/Empire [] Salvation [x] Completed spiritual assessment [] Other: Impact on Illness or Injury [] Angry [] Fearful [] Anxious [] Often cries [] Exhaustion [] Unable to work [] Unable to attend amish [] Unable to walk/stand [] Unable to read [] Unable to drive [] Unable to eat/drink [] Unable to sleep [] Unable to be with family [] Patient intubated [] Other: Summary patient received pace maker and ready to be discharged.... Time spent with patient 10 min
[2021-08-27] MEDS: ondansetron 2 mg/ML SDV 2 mL 4 MG IVP (11:47)
--- NOTE | 2021-08-27 12:27 | PC.SOCIAL ---
IMM Updated Updated pt on IMM. No questions voiced. Provided pt a copy. Initialed, dated, & timed copy in chart.
--- NOTE | 2021-08-27 13:08 | PM.PN ---
Subjective Subjective: Interval history: Patient is feeling okay. He had the leadless pacemaker insertion yesterday. The pacemaker interrogation report reveals normal function of the device. Medications: Reviewed: Yes Medication Review Details: Current Medications Acetaminophen (Acetaminophen 325 Mg Tablet) 325 mg PO Q4H PRN PRN Reason: MILD PAIN OR INCREASE TEMP Last Admin: 08/25/21 21:32 Dose: 325 mg Documented by: Albuterol/Ipratropium (Ipratropium-Albuterol 3 Ml Neb) 3 ml INHALATION Q6H PRN PRN Reason: SHORTNESS OF BREATH Dextrose (Dextrose 50% Syringe 50 Ml) 25 ml IVP ONCE PRN; Protocol PRN Reason: hypoglycemia protocol Dextrose (Dextrose 50% Syringe 50 Ml) 50 ml IVP PRN PRN; Protocol PRN Reason: hypoglycemia protocol Enoxaparin Sodium (Enoxaparin 40 Mg/0.4 Ml Syringe) 40 mg SUBCUT Q24H [facility] Last Admin: 08/26/21 17:40 Dose: Not Given Documented by: Glucagon (Glucagon 1 Mg/Ml Inj 1 Ml) 1 mg IM ONCE PRN; Protocol PRN Reason: Adult Acute Hypoglycemia Prot. Dextrose/Sodium Chloride (Dextrose 5%-Sod Chloride 0.45%) 1,000 mls @ 75 mls/hr IV .[id number] [facility] Last Admin: 08/27/21 05:21 Dose: 75 mls/hr Documented by: Sodium Chloride (Sodium Chloride 0.9%) 1,000 mls @ 75 mls/hr IV .[id number] [facility] Last Admin: 08/27/21 05:14 Dose: Not Given Documented by: Aztreonam 1,000 mg/ Sodium (Chloride) 50 mls @ 100 mls/hr IV Q12H [facility]; Protocol Last Infusion: 08/27/21 04:28 Dose: Infused Documented by: Dextrose (D5w) 500 mls @ 100 mls/hr IV ONCE PRN; Protocol PRN Reason: Adult Acute Hypoglycemia Prot Insulin Human Lispro (Insulin Lispro 100 Unit/1 Ml) 0 unit SUBCUT WM&BEDTIME [facility]; Protocol Last Admin: 08/27/21 11:47 Dose: 4 unit Documented by: Metronidazole (Metronidazole 500 Mg Tablet) 500 mg PO TID [facility] Last Admin: 08/27/21 09:32 Dose: 500 mg Documented by: Ondansetron HCl (Ondansetron 2 Mg/Ml Sdv 2 Ml) 4 mg IVP Q4H PRN PRN Reason: NAUSEA AND VOMITING Last Admin: 08/27/21 11:47 Dose: 4 mg Documented by: Tramadol HCl (Tramadol 50 Mg Tablet) 50 mg PO Q6H PRN PRN Reason: MODERATE TO SEVERE PAIN Last Admin: 08/25/21 22:49 Dose: 50 mg Documented by: Vitals/I&O/Wt Last Vital Signs Temp 97.6 F 08/27/21 07:00 Pulse 78 08/27/21 10:00 Resp 17 08/27/21 10:00 BP 143/70 08/27/21 10:00 Pulse Ox 97 08/27/21 10:00 08/26/21 08/27/21 08/27/21 22:59 06:59 14:59 Intake Total 1298.75 / 1298.75 1410 / 2708.75 400 / 400 Output Total 700 / 1000 350 / 1350 300 / 300 Balance 598.75 / 298.75 1060 / 1358.75 100 / 100 Physical Exam Narrative: EXAM NARRATIVE: GENERAL: The patient is alert and oriented times three. Not in any acute distress. HEENT: No significant pallor, icterus or lymphadenopathy.Oral cavity: There are no mucous membrane lesions. NECK: Trachea appears to be central. No masses noted. No JVD or thyromegaly appreciated. RESPIRATORY: Chest is symmetrical. No intercostals muscle retraction or any accessory muscle activation. There is no chest wall tenderness. Breath sounds are heard bilaterally. No rales or rhonchi heard. No evidence of any consolidation. BREASTS: Deferred. HEART: The heart sounds are normal. No S3 or S4. Short systolic murmur at the aortic area. No diastolic murmurs.. No pericardial rub ABDOMEN: No vessel pulsations or distention. No tenderness. No organomegaly appreciated. Bowel sounds are normally heard. : Deferred. RECTAL: Deferred. LYMPHATIC: No lymphadenopathy noted in the neck or groin. EXTREMITIES: No edema or cyanosis. No clubbing. Peripheral pulses are palpated in fairly good volume and amplitude MUSCULOSKELETAL: No acute joint deformities or swelling SKIN: There are no significant rashes or ecchymosis NEUROPSYCHIATRIC: The patient is alert and oriented x3. Appears to be in a good mood. No tremors or rigidity noted. Data : 08/27/21 04:21 08/27/21 04:21 Micro: Microbiology 08/25/21 12:40 Blood Culture - Preliminary Blood NEGATIVE TO DATE 08/25/21 12:48 Blood Culture - Preliminary Blood NEGATIVE TO DATE 08/25/21 Unknown Urine Culture - Preliminary Urine,Voided Gram Negative Rods A&P Assessment and plan (1) Complete heart block: Patient status post Micra AV placement. The device is functioning well Status: Resolved (2) Elevated white blood cell count: White cell count has returned to normal at this point. So most likely this is related to the UTI. The blood culture has no growth so far Status: Resolved Qualifiers: Leukocytosis type: other Qualified Code(s): D72.828 - Other elevated white blood cell count (3) ASHD (arteriosclerotic heart disease): He appears to be stable. May continue on the current medications. 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 Patient also was found to have normal ejection fraction by echocardiogram a year ago. 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 No recent changes. Status: Acute Additional A&P Information If the patient continues remain stable, may be discharged home today. He may go home with the following medications Atenolol 50 mg p.o. daily in the morning Losartan 50 mg p.o. in the evening Clopidogrel 75 mg p.o. daily Isosorbide mononitrate 30 mg p.o. daily Insulin Simvastatin 20 mg p.o. nightly Antibiotics for the UTI as per the hospitalist Appointment at the [facility] in 1 week for a pacemaker check and nurse check Appointment with me in the office in 1 month Attestations Medical Necessity Statement*: Discharge home today Coding Level of Care Code Acute Billing Customer Service Representative for Julio Cesar Fwdylan Diagnoses Complete heart block I44.2 Elevated white blood cell count D72.828 Leukocytosis type: other ASHD (arteriosclerotic heart disease) I25.10 Mixed hyperlipidemia E78.2 Diabetes E11.65 Diabetes mellitus complication status: with hyperglycemia Diabetes mellitus detention insulin use: without watermelon harvesting supervisor use Diabetes mellitus type: type 2 Hypertension I10 Hypertension type: essential hypertension H/O aortic valve replacement Z95.2 Diarrhea following gastrointestinal surgery R19.7; Z98.890
--- NOTE | 2021-08-27 13:31 | PM.DCS ---
Discharge Providers Date of Admission: 08/22/21 17:47 Date of Discharge: August 27, 2021 Attending Provider at Admission: Clay Gujaardo MD Attending Provider at Discharge: Fatuma Gomes MD Primary Care Provider: Alayna Bloom MD Diagnoses at Discharge Discharge Diagnosis (1) Complete heart block: Status: Acute (2) Elevated white blood cell count: Status: Acute Qualifiers: Leukocytosis type: other Qualified Code(s): D72.828 - Other elevated white blood cell count (3) ASHD (arteriosclerotic heart disease): Status: Acute (4) Mixed hyperlipidemia: Status: Acute (5) Diabetes: Status: Acute Permanent problem details: Close monitoring of the blood sugar and management as per the primary Qualifiers: Diabetes mellitus complication status: with hyperglycemia Diabetes mellitus superintendent terminal insulin use: without superintendent terminal use Diabetes mellitus type: type 2 Qualified Code(s): E11.65 - Type 2 diabetes mellitus with hyperglycemia (6) Hypertension: Status: Acute Qualifiers: Hypertension type: essential hypertension Qualified Code(s): I10 - Essential (primary) hypertension (7) H/O aortic valve replacement: Status: Acute (8) Diarrhea following gastrointestinal surgery: Status: Acute Reason for Visit Reason for Visit: SYNCOPAL EPISODE: SENT BY PCP Hospital Course Hospital Course HPI as per Dr. Guajardo Toni Riojsa is a 71 year old male with history of valvular heart disease status post aortic valve [place] [address] Rocha, follows up with Dr. Desai, established coronary disease, chronic dyspnea on exertion, diabetes, has been having recurrent syncopal events for quite some time. Patient is stating that he has been having recurrent syncopes for last few years, he has been evaluated multiple times by the owner consulting engineer, recently he was put on Holter monitor. Today around 11:30 AM he was at his friend's home when he had an event when he tried to get up from sitting position to go towards the door he completely felt tired, fatigue and fell on the ground. He recovered quickly. He drove home and after few hours he got a phone call to go to the ER as soon as possible because of 5 seconds of third-degree heart block detected on the Holter monitor. Patient drove himself to the ER. In the ER he had another episode for about 10 to 15 seconds, telemetry strip was reviewed which showed complete heart block, narrow complex QRS, patient felt weak lethargic and he was diaphoretic. He recovered spontaneously this time as well and by the time I saw him his heart rate was in 70s, sinus rhythm, normal blood pressure systolic blood pressure in 140s, patient was able to remember details. Son at the bedside. Dr. Cobian is currently in [place] [facility] for STEMI, he will evaluate him after his procedure. Zoll pads applied in the ER Course Patient diagnosed with complete heart block and had temporary pacemaker placed and later had a leadless pacemaker placed on 08/[address] Rocha. He was seen and followed by cardiology. He is stable for discharge to home Other issues: CHronic diarrhea: Patient does have chronic diarrhea and is again having diarrhea during hospital stay. He does state that ever since he had his bowel surgery years ago he has struggled with chronic diarrhea and takes Imodium for it at home. C. difficile negative. CT abdomen showed adynamic ileus with perinpehric stranding. WBC elavated. Abx started for UTI. GM neg rods growing. Remained afebrile. Having bowel movements (loose stools). At baseline. Abdominal exam benign. Will be discharged home to follow up with PCP. Will send home on oral antibiotics MACROBID. E. coli in urine resistant to ampicillin, levofloxacin, ciprofloxacin, tetracycline, gentamicin. Patient allergic to penicillin. Unable to give him Bactrim as well because of sulfa allergy. Will prescribe Macrobid as it is sensitive to Macrobid. Physical Exam Narrative: EXAM NARRATIVE: General: Alert oriented x3, patient seen this morning seen sitting up in recliner having breakfast. HEENT: Normocephalic, atraumatic, EOMI, breathing room air, normal respiratory effort. Cardio: Regular rate rhythm, normal S1-S2, no gross murmurs Respiratory: Mildly diminished bilateral air entry, no gross wheezes or rhonchi appreciated. GI: Abdomen soft, nontender, BS +, no guarding, Behavior: Appropriate and cooperative Extremities: no edema, no cyanosis Discharge Data Data Completed and Pending: Completed Studies During Hospitalization Category Date Time Status CT abdomen pelvis wo con [id number] Stat Cat Scan 08/25/21 12:[address] head wo con* 7 [id number] Urgent Cat Scan 08/22/21 17:21 Completed XR KUB portable 7 [id number] Urgent Exams 08/26/21 08:26 Completed XR chest 1V vipul ble [id number] Routine Exams 08/26/21 17:36 Completed XR chest 1V vipul ble [id number] Stat Exams 08/25/21 09:59 Completed CV. 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 MECHANIC request for service Routin e Exams 08/23/21 10:22 Taken Blood Culture Sta t Lab 08/25/21 12:40 Results Enteric Bacterial Panel by PCR Rout ine Lab 08/25/21 08:10 Received Enteric Parasite Panel by PCR Routi ne Lab 08/25/21 08:10 Received Urinalysis and Mi croscopic Routine Lab 08/26/21 07:54 Uncollected Urine Culture Rou leo Lab 08/25/21 Results Labs from last 24 hours 08/27/21 08/27/21 08/27/21 08:09 04:21 04:21 WBC 8.6 RBC 4.91 Hgb 15.1 Hct 46.1 MCV 93.9 D MCH 30.8 MCHC 32.8 D RDW 13.5 Plt Count 148 MPV 10.7 H Neut % (Auto) 66.5 Lymph % (Auto) 22.3 [place] % (Auto) 7.7 Eos % (Auto) 2.7 Baso % (Auto) 0.4 Neut # (Auto) 5.71 Lymph # (Auto) 1.9 [place] # (Auto) 0.7 Eos # (Auto) 0.2 Baso # (Auto) 0.0 Nucleated RBC % (a uto) 0 Nucleated RBCs # 0.0 Sodium 136 Potassium 3.8 Chloride 105 Carbon Dioxide 18 L Anion Gap 16.8 BUN 11 Creatinine 1.0 GFR Calculation 73.9 L Glucose 171 H POC Glucose 162 H Calculated Osmolal ity 285 Calcium 8.0 L Magnesium 1.4 L 08/26/21 08/26/21 19:47 17:48 WBC RBC Hgb Hct MCV MCH MCHC RDW Plt Count MPV Neut % (Auto) Lymph % (Auto) [place] % (Auto) Eos % (Auto) Baso % (Auto) Neut # (Auto) Lymph # (Auto) [place] # (Auto) Eos # (Auto) Baso # (Auto) Nucleated RBC % (a uto) Nucleated RBCs # Sodium Potassium Chloride Carbon Dioxide Anion Gap BUN Creatinine GFR Calculation Glucose POC Glucose 112 H 114 H Calculated Osmolal ity Calcium Magnesium Vitals: Last Vital Signs Temp 97.6 F 08/27/21 07:00 Pulse 78 08/27/21 10:00 Resp 17 08/27/21 10:00 BP 143/70 08/27/21 10:00 Pulse Ox 97 08/27/21 10:00 Discharge Plan Discharge Patient Disposition: Home Condition: Stable Prescriptions: New Macrobid 100 mg capsule 100 mg PO BID 5 Days Qty: 10 RF: 0 Continued losartan 50 mg tablet 50 mg PO QAM RF: 0 nitroglycerin [Nitrostat] 0.4 mg tablet, sublingual 0.4 mg SUBLINGUAL Q5M PRN (Reason: Chest Pain) RF: 0 Victoza 2-Roberto 0.6 mg/0.1 mL (18 mg/3 mL) pen injector 1.2 mg SUBCUT QAM RF: 0 clopidogrel 75 mg tablet 75 mg PO QAM RF: 0 simvastatin 20 mg tablet 20 mg PO BEDTIME RF: 0 Changed Tresiba FlexTouch U-100 100 unit/mL (3 mL) insulin pen 10 unit SUBCUT BEDTIME Qty: 0 RF: 0 isosorbide mononitrate 60 mg tablet extended release 24 hr 30 mg PO QAM Qty: 0 RF: 0 atenolol 100 mg tablet 50 mg PO DAILY Qty: 0 RF: 0 Discharge Orders: Discharge Order (Routine); Ordered 08/27/21 Ordered By: Fatuma Gomes Referrals: Alayna Bloom MD [Primary Care Provider] - 1 week Coby Desai MD [Physician] - 1 month Evelin Delatorre FNP [Nurse Practitioner] - 1 week Discharge Diet: Cardiac and Low Salt Discharge Activity: Resume usual activity Patient Instructions: Pacemaker (DC), Opioid Safety, Post Pacemaker - Lloyd Activity Restrictions/Additional Instructions: If you develop a fever, shortness of breath, lightheadedness, chest pain, abdominal pain, worsening diarrhea, please return to ER. Discharge Attestations Time Spent in Discharge Care*: greater than 30 min Quality Metrics Clinical Quality Measures During this hospital stay, did patient experience: None Coding Level of Care Code Acute Chg FW DC note Diagnoses Complete heart block I44.2 Elevated white blood cell count D72.828 Leukocytosis type: other ASHD (arteriosclerotic heart disease) I25.10 Mixed hyperlipidemia E78.2 Diabetes E11.65 Diabetes mellitus complication status: with hyperglycemia Diabetes mellitus assisted insulin use: without assisted use Diabetes mellitus type: type 2 Hypertension I10 Hypertension type: essential hypertension H/O aortic valve replacement Z95.2 Diarrhea following gastrointestinal surgery R19.7; Z98.890
== END 2021-08-27 15:20 | disposition home or self-care (01) | DRG 229 ==
LOC: ER 18:14 → ICU 18:26
PROVIDERS: Internal Medicine; Internal Medicine Cardiovascular Disease; Thoracic Surgery (Cardiothoracic Vascular Surgery); Admitting Provider Internal Medicine; Emergency Provider Emergency Medicine; PCP Internal Medicine; Visit Provider Internal Medicine
PROC: 5A1213Z Performance of Cardiac Pacing, Intermittent (ICD-10-PCS; principal; 2021-08-23 10:30)
PROC: 02HK3NZ Insertion of Intracardiac Pacemaker into Right Ventricle, Percutaneous Approach (ICD-10-PCS; principal; 2021-08-26 15:40)
DX: I44.2 Atrioventricular block, complete (principal); K91.89 Other postprocedural complications and disorders of digestive system; N39.0 Urinary tract infection, site not specified; Z16.11 Resistance to penicillins; Z16.29 Resistance to other single specified antibiotic; Z16.23 Resistance to quinolones and fluoroquinolones; I25.10 Atherosclerotic heart disease of native coronary artery without angina pectoris; Z95.5 Presence of coronary angioplasty implant and graft; Z95.2 Presence of prosthetic heart valve; J44.9 Chronic obstructive pulmonary disease, unspecified; E11.65 Type 2 diabetes mellitus with hyperglycemia; I10 Essential (primary) hypertension; E78.2 Mixed hyperlipidemia; Z90.49 Acquired absence of other specified parts of digestive tract; F17.210 Nicotine dependence, cigarettes, uncomplicated; R55 Syncope and collapse; K59.1 Functional diarrhea; Z79.02 Long term (current) use of antithrombotics/antiplatelets; Z79.899 Other long term (current) drug therapy; Z88.0 Allergy status to penicillin; Z88.2 Allergy status to sulfonamides; B96.20 Unspecified Escherichia coli [E. coli] as the cause of diseases classified elsewhere
CPT/HCPCS: 33210; 36415; 36416; 70450; 71045; 74018; 74176; 76000; 80048; 80053; 81001; 82962; 83735; 84443; 84484; 85007; 85025; 85027; 85610; 85730; 87040; 87077; 87086; 87186; 87493; 87506; 93005; 93306; 96365; 96367; 96372; 99285; C1769; C1779; C1786; C1894; J0690; J1644; J1650; J1815; J2250; J2405; J2704; J3010; J3370; J3475; J3490; J7030; J7050; J7799; Q9967

== ENCOUNTER 2022-04-17 10:14 | Outpatient (CLI) | payer MEDICARE, SELFPAY ==
--- NOTE | 2022-04-17 10:23 | CT_ITS ---
WS: [id number] LDCT LUNG CANCER SCREENING HISTORY: HX OF TOBACCO USE TECHNIQUE: Axial imaging performed from the apices to 1 cm below the costophrenic angles. Coronal and sagittal reformats are submitted with axial MIP series. All CT scans at [facility] use at least one of these dose optimization techniques: automated exposure control; mA and/or kV adjustment per patient size (includes targeted exams where dose is matched to clinical indication); or iterativ e reconstruction. DLP: 79.09 mGy.cm DIvol: Mean CTDIvol: 1.60 (mGy) COMPARISON: 03/10/2021 Diagnostic quality: Satisfactory Lung Nodules: No suspicious nodules or endobronchial lesions. Lungs: Hyperinflated lungs from chronic emphysema. Very minimal scarring at the RIGHT lung base. Heart: Heart size is normal. Prior CABG. No pericardial effusion. Other findings: No adenopathy. CT/CT lung screening [id number] IMPRESSION: LUNG-RADS: 1-Negative FOLLOW UP: 12 Month: Continue annual screening with LDCT OTHER FINDINGS (S MODIFIER): None.
== END 2022-04-17 10:15 | disposition home or self-care (01) ==
LOC: RAD 10:16
PROVIDERS: PCP Internal Medicine; Visit Provider Internal Medicine
DX: Z12.2 Encounter for screening for malignant neoplasm of respiratory organs (principal); F17.218 Nicotine dependence, cigarettes, with other nicotine-induced disorders; R91.8 Other nonspecific abnormal finding of lung field
CPT/HCPCS: 71271

== ENCOUNTER 2022-08-21 00:10 | Emergency (ER) | payer MEDICARE, SELFPAY ==
[2022-08-21 00:39] VITALS: BP 134/79; PULSE 79; RESP 16; TEMP 36.6; O2SAT 98; BMI 27.2
--- NOTE | 2022-08-21 01:19 | ED_ITS ---
HPI - Back Pain/Injury General: Chief Complaint: Back Pain/Injury Stated Complaint: low back pain Time Seen by Provider: 08/21/22 01:11 Source: patient Mode of arrival: ambulatory Limitations: no limitations History of Present Illness: 72-year-old male states been having right lower back pain throughout the day he states that feels like he is having muscle spasm he states the pain is episodic in the right lower region. States pain is currently improved to 1 out of 10 he denies any worsening proving factors denies any abdominal pain denies any fever denies any vomiting or diarrhea. Associated symptoms: Deny abdominal pain, chills, dysuria, fever(s), nausea or vomiting Review of Systems Const: Denies: fever(s), chills, body aches or change in appetite Eyes: Denies: blurry vision or eye discomfort ENMT: Denies: throat pain or dental pain Card: Denies: chest pain Resp: Denies: dyspnea GI: Denies: abdominal pain, nausea, vomiting or diarrhea : Denies: dysuria Musc: Reports: back pain Skin/Breast: Denies: rash Neuro: Denies: headache(s) Psych: Denies: depression Serge/Lymph: Denies: easy bruising All/Imm: Denies: urticaria PFSH ED PFSH: Medical History Aortic valve stenosis ASHD (arteriosclerotic heart disease) COPD (chronic obstructive pulmonary disease) Diabetes Close monitoring of the blood sugar and management as per the primary Hypertension Migraine Mixed hyperlipidemia Pacemaker Syncope Surgical History H/O aortic valve replacement History of colon resection Family History Grandfather CAD (coronary artery disease) NM Brother Cancer Brother Cancer Diabetes Sister Cancer Diabetes Mother Dementia Diabetes Sister Diabetes Father Cerebral hemorrhage Denies family history of Clotting disorder Chronic kidney disease (CKD) Suicide Anesthesia complication Bleeding disorder Lung disease Stroke Social History Smoking and tobacco status: current every day smoker Alcohol intake: never Physical Exam Const: COMMON NORMALS: no acute distress, average body habitus and patient oriented x3 HENMT: COMMON NORMALS: normocephalic HEAD & SCALP: normocephalic Eye: COMMON NORMALS: conjunctivae normal CONJUNCTIVA: Yes conjunctivae normal Neck/C-Spine: COMMON NORMALS: full ROM and supple Chest: COMMONS NORMALS: normal inspection of the chest Resp: COMMON NORMALS: normal respiratory effort Cardio: COMMON NORMALS: regular rate RATE: regular rate GI: COMMON NORMALS: Normal to inspection, nondistended, normoactive bowel sounds present, Soft to palpation and non-tender INSPECTION: Yes normal to inspection PALPATION: Yes Soft to palpation Back/Pelvis: OTHER: No midline tenderness patient has some slight right-sided pain to the right lower lumbar region no saddle anesthesia Extremity: COMMON NORMALS: normal to inspection and full ROM Neuro: COMMON NORMALS: patient oriented x3 Psych: COMMON NORMALS: mental status grossly normal Skin: COMMON NORMALS: no rashes or lesions noted GENERAL SKIN EXAM: no rashes or lesions noted Course Vital Signs: Vital signs: Vital Signs Temperature 97.8 F 08/21/22 00:39 Pulse Rate 79 08/21/22 00:39 Respiratory Rate 16 08/21/22 00:39 Blood Pressure 134/79 08/21/22 00:39 Pulse Oximetry 98 08/21/22 00:39 Oxygen Delivery Me thod 08/21/22 00:39 MDM - Back Pain/Injury Medical Decision Making Patient presents here with low back pain is likely muscle spasm in nature he is pain-free currently his exam is benign no signs of kidney stone he stable for discharge he is to follow-up with PCP and return if worsening. Labs Laboratory Results Urine Color Colorless (Yellow) 08/21/22 01:30 Urine Appearance Clear (CLEAR) 08/21/22 01:30 Urine pH 5 (5-7) 08/21/22 01:30 Ur Specific [place] 1.015 (1.005-1.030) 08/21/22 01:30 Urine Protein Neg (Negative) 08/21/22 01:30 Urine Glucose (UA) 4+ (Normal) H 08/21/22 01:30 Urine Ketones Negative (Negative) 08/21/22 01:30 Urine Blood Neg (Negative) 08/21/22 01:30 Urine Nitrate Negative (Negative) 08/21/22 01:30 Urine Bilirubin Neg (Negative) 08/21/22 01:30 Urine Urobilinogen Norm mg/dL (Negative) 08/21/22 01:30 Ur Leukocyte Esterase Negative (Negative) 08/21/22 01:30 Discharge Plan Discharge Patient Disposition: Home Clinical Impression: Low back pain Condition: Stable Prescriptions: New methocarbamol 750 mg tablet 750 mg PO Q6H PRN (Reason: spasms) Qty: 20 0RF Naprosyn 500 mg tablet 500 mg PO BID PRN (Reason: pain) Qty: 20 0RF No Action Tresiba FlexTouch U-100 100 unit/mL (3 mL) insulin pen 36 unit SUBCUT BEDTIME nitroglycerin [Nitrostat] 0.4 mg tablet, sublingual 0.4 mg SUBLINGUAL Q5M PRN (Reason: Chest Pain) Rx Instructions: max 3 doses clopidogrel 75 mg tablet See Rx Instructions .ROUTE .COMPLEX Qty: 90 3RF Dose Instruction: Take 1 tablet by mouth once daily Rx Instructions: Take 1 tablet by mouth once daily simvastatin 20 mg tablet 20 mg PO BEDTIME Qty: 90 3RF atenolol 50 mg tablet 50 mg PO DAILY Qty: 90 3RF isosorbide mononitrate 30 mg tablet extended release 24 hr 30 mg PO QAM Qty: 90 3RF losartan 50 mg tablet 50 mg PO QAM Qty: 90 3RF Victoza 2-Roberto 0.6 mg/0.1 mL (18 mg/3 mL) pen injector 1.2 mg SUBCUT QAM Discharge Orders: Discharge ED (Routine); Ordered 08/21/22 Ordered By: Tavia Suarez Referrals: Alayna Bloom MD [Primary Care Provider] - 1-3 days Discharge Diet: Advance as tolerated Discharge Activity: Resume usual activity Patient Instructions: Back Pain (ED) Coding Level of Care Code ED Storage Administrator for Chg Fwd Exam Comprehensive
[2022-08-21] MEDS: naproxen 500 mg Tablet PO (01:33)
[2022-08-21 01:38] LABS: Add Urine Microscopic? NO; Charge for UA Resulting for Rev
[2022-08-21 02:19] LABS: Bilirubin Urine Neg (Negative); Blood Urine Neg (Negative); Glucose Urine UA 4+ (Normal); Ketones Urine Negative (Negative); Leukocyte Esterase Urine Negative (Negative); Nitrate Urine Negative (Negative); Protein Urine Neg (Negative); Specific Gravity, Urine 1.015 (1.005-1.030); Urine Appearance Clear (CLEAR); Urine Color Colorless (Yellow); Urobilinogen Urine Norm (Negative); pH Urine 5 (5-7)
== END 2022-08-21 02:33 | disposition home or self-care (01) ==
PROVIDERS: Emergency Provider Emergency Medicine; PCP Internal Medicine
DX: M54.50 Low back pain, unspecified (principal); Z79.4 Long term (current) use of insulin; Z79.02 Long term (current) use of antithrombotics/antiplatelets; F17.210 Nicotine dependence, cigarettes, uncomplicated; J44.9 Chronic obstructive pulmonary disease, unspecified; E11.9 Type 2 diabetes mellitus without complications; I10 Essential (primary) hypertension; E78.2 Mixed hyperlipidemia; Z95.0 Presence of cardiac pacemaker
CPT/HCPCS: 81003; 99283

== ENCOUNTER → 2022-09-24 10:16 | Outpatient (BNVA) | payer MEDICARE, SELFPAY | PROVIDERS: PCP Internal Medicine; Visit Provider Internal Medicine Cardiovascular Disease | DX: I25.10 Atherosclerotic heart disease of native coronary artery without angina pectoris (principal); Z95.2 Presence of prosthetic heart valve; Z95.0 Presence of cardiac pacemaker; E78.2 Mixed hyperlipidemia; E11.65 Type 2 diabetes mellitus with hyperglycemia; Z79.4 Long term (current) use of insulin; I11.0 Hypertensive heart disease with heart failure; I50.9 Heart failure, unspecified; F17.200 Nicotine dependence, unspecified, uncomplicated | CPT/HCPCS: 99214 ==

== ENCOUNTER → 2022-10-23 09:08 | Outpatient (BNVA) | payer MEDICARE, SELFPAY | PROVIDERS: PCP Internal Medicine; Visit Provider Internal Medicine Cardiovascular Disease | DX: Z45.010 Encounter for checking and testing of cardiac pacemaker pulse generator [battery] (principal) | CPT/HCPCS: 93279 ==

== ENCOUNTER 2023-03-18 23:59 | Emergency (ER) | payer MEDICARE, SELFPAY ==
--- NOTE | 2023-03-19 00:08 | ECG_ITS ---
[facility] Test Date: 2023-03-19 Pat Name: Toni Riojas Department: Room: Gender: Male Director Industrial Nursing: : 1950 Requested By: Paco Perry Order Number: [id number] Shannon MD: Abhi Cobian M.D. Measurements Intervals [place] Rate: 82 P: 41 TN: 240 QRS: 71 QRSD: 77 T: 172 QT: 359 QTc: 420 Interpretive Statements SINUS RHYTHM WITH FIRST DEGREE AV BLOCK SEPTAL MYOCARDIAL INFARCTION , PROBABLY OLD [40+ ms Q WAVE IN V1/V2] MODERATE T-WAVE ABNORMALITY, CONSIDER LATERAL ISCHEMIA [-0.1+ mV T-WAVE IN I/aVL/V5/V6] Compared to ECG 08/26/2021 09:21:56 T-wave abnormality now present Possible ischemia now present Myocardial infarct finding still present Electronically Signed On 03-19-2023 15:50:56 CDT by Abhi Cobian M.D. [email or web address]
[2023-03-19 00:09] VITALS: BP 161/96; PULSE 85; RESP 18; TEMP 36.7; O2SAT 96
--- NOTE | 2023-03-19 00:13 | XRR_ITS ---
PROCEDURE INFORMATION: Exam: XR Chest Exam date and time: 03/19/2023 12:23 AM Age: 72 years old Clinical indication: Shortness of breath; Prior surgery; Surgery date: 6+ months; Surgery type: Stents, cabg, pacemaker; Additional info: SOB TECHNIQUE: Imaging protocol: Radiologic exam of the chest. Views: 1 view. COMPARISON: CT lung screening [id number] 04/17/2022 10:41 AM FINDINGS: Tubes, catheters and devices: There is a loop recorder device seen overlying the left lower thorax. Lungs: The lungs are hyperinflated, consistent with COPD. No consolidative pulmonary infiltrate noted. Pleural spaces: No pleural effusion. No pneumothorax. Heart/Mediastinum: No cardiomegaly. Bones/joints: Median sternotomy noted. XR/XR chest 1V portable [id number] IMPRESSION: 1. The lungs are hyperinflated, consistent with COPD. 2. No consolidative pulmonary infiltrate noted.
--- NOTE | 2023-03-19 00:22 | ED_ITS ---
HPI - SOB/Dyspnea General: Chief Complaint: Shortness of Breath/Dyspnea Stated Complaint: high bp Time Seen by Provider: 03/19/23 00:04 History of Present Illness: HPI Narrative: Patient is a 72-year-old male who comes to the ED with shortness of breath. S ymptoms started at about 10:30 PM tonight. He states that he was asleep and woke up and felt really short of breath. Denies any chest pain or heart palpitations.endorses having a chronic cough but no acute change in that. Endorses having a chronic cough but denies any acute change. He states he has had a lot of nasal drainage and congestion for the past couple days because he has been out cutting grass. Denies any fevers, chills, abdominal pain, nausea/vomiting, bladder symptoms. Patient does state that he feels constipated and has not had a bowel movement in over 24 hours. Denies any blood in stool. Past medical history of cardiac stent, aortic valve replacement, hypertension, diabetes and COPD. Patient admits to being a daily tobacco smoker for 50+ years. Associated symptoms: Deny abdominal pain, chest pain, fever(s), nausea, orthopnea, palpitations or vomiting Review of Systems Const: Denies: fever(s), chills or fatigue Eyes: Denies: change in vision or eye discomfort ENMT: Reports: nasal discharge and nasal congestion; Denies: throat pain or odynophagia Card: Denies: chest pain, palpitations, edema, swelling of feet/ankles, dyspnea on exertion or orthopnea Resp: Reports: dyspnea and non-productive cough (Chronic); Denies: productive cough or wheezing GI: Reports: constipation; Denies: abdominal pain, nausea, vomiting, diarrhea or hematochezia : Denies: flank pain, difficulty urinating, dysuria or hematuria Musc: Denies: neck pain, back pain or extremity swelling Skin/Breast: Denies: rash or new lesions Neuro: Denies: headache(s), numbness in extremities or weakness in extremities PFSH ED PFSH: Medical History Aortic valve stenosis ASHD (arteriosclerotic heart disease) COPD (chronic obstructive pulmonary disease) Diabetes Close monitoring of the blood sugar and management as per the primary Hypertension Migraine Mixed hyperlipidemia Pacemaker Syncope Surgical History H/O aortic valve replacement History of colon resection Family History Grandfather CAD (coronary artery disease) DC Brother Cancer Brother Cancer Diabetes Sister Cancer Diabetes Mother Dementia Diabetes Sister Diabetes Father Cerebral hemorrhage Denies family history of Clotting disorder Chronic kidney disease (CKD) Suicide Anesthesia complication Bleeding disorder Lung disease Stroke Social History Smoking and tobacco status: current every day smoker Alcohol intake: never Substance/Drug Use: never Physical Exam Const: COMMON NORMALS: no acute distress, patient oriented x3 and alert HENMT: COMMON NORMALS: normocephalic HEAD & SCALP: normocephalic MOUTH: Normal oral and palatal mucosa present THROAT: posterior oropharynx normal and uvula midline Neck/C-Spine: COMMON NORMALS: supple GENERAL: Yes normal visual inspection Resp: COMMON NORMALS: normal respiratory effort, No retractions and No use of accessory muscles AUSCULTATION: no wheezes and diminished lung sounds bi lateral throughout Cardio: COMMON NORMALS: regular rate, regular rhythm, S1 normal heart sound present, S2 normal heart sound present, No gallops present (Cardio), No clicks present (Cardio), No murmurs present (Cardio) and Peripheral pulses 2+ t hroughout RATE: regular rate RHYTHM: regular rhythm HEART SOUNDS: S1 normal heart sound present and S2 normal heart sound present PERIPHERAL PULSES: Peripheral pulses 2+ throughout GI: COMMON NORMALS: Normal to inspection, nondistended, normoactive bowel sounds present, Soft to palpation, non-tender and no masses PALPATION: Yes Soft to palpation : COMMON NORMALS: Yes no CVA tenderness BLADDER/KIDNEY EXAM: Yes no CVA tenderness Back/Pelvis: COMMON NORMALS: no CVA tenderness Extremity: COMMON NORMALS: normal to inspection and no pedal edema Neuro: COMMON NORMALS: patient oriented x3 SENSORIUM/ORIENTATION: Yes alert GAIT: Yes Normal gait present Skin: GENERAL SKIN EXAM: dry skin Course Vital Signs: Vital signs: Vital Signs Temperature 98.0 F 03/19/23 00:09 Pulse Rate 83 03/19/23 02:35 Respiratory Rate 16 03/19/23 02:35 Blood Pressure 158/80 03/19/23 02:35 Pulse Oximetry 96 03/19/23 02:35 Oxygen Delivery Me thod Room Air 03/19/23 02:35 MDM - SOB/Dyspnea Medical Decision Making Patient is a 72-year-old male who comes to the ED with shortness of breath. Symptoms started at about 10:30 PM tonight. He states that he was asleep and woke up and felt really short of breath. Denies any chest pain or heart palpitations.endorses having a chronic cough but no acute change in that. Endorses having a chronic cough but denies any acute change. Patient said has had nasal drainage and congestion the past couple days since he has been out cutting grass. denies any fevers, chills, abdominal pain, nausea/vomiting, bladder symptoms. Patient does state that he feels constipated and has not had a bowel movement in over 24 hours. Denies any blood in stool. Past medical history of cardiac stent, aortic valve replacement, hypertension, diabetes. Patient admits to being a daily tobacco smoker for 50+ years and he is starting to develop COPD. Vital stable. Patient appears nontoxic in no acute distress or pain. He does have some decreased lung sounds throughout lungs bilaterally. No edema in the legs noted. Rest of exam is benign. Chest x-ray shows hyperinflated lungs consistent with COPD but no other acute findings noted. White blood cell count 12.5 and the rest of CBC and CMP are unremarkable. EKG showed sinus rhythm with first-degree AV block and no ST segment elevation or depression seen. First troponin was 12 and second troponin was 10.96. BNP 352. Second EKG showed no acute change from first. Patient was given DuoNeb breathing treatment here in the ED and said it did help his shortness of breath. His O2 sats are 96% on room air the rest of his vitals are stable. patient is stable for discharge home. He was diagnosed with COPD and sent home with a prescription for an antibiotic, albuterol inhaler and a short course of steroids. He was told to follow-up with his PCP within the next week for reevaluation. Return to ED precautions given. Patient understood and agreed with plan. Lab Data I reviewed the patient's lab results. 03/19/23 00:42 03/19/23 00:42 Labs/Radiology: Radiology Impressions Chest X-Ray 03/19/23 00:13 IMPRESSION: 1. The lungs are hyperinflated, consistent with COPD. 2. No consolidative pulmonary infiltrate noted. KUB X-Ray 03/19/23 00:25 IMPRESSION: Nonspecific gaseous distention in the upper abdomen. No significant stool burden. Laboratory Results WBC 12.5 10^3/uL (4.0-10.0) H 03/19/23 00:42 RBC 5.23 10^6/uL (4.1-5.3) 03/19/23 00:42 Hgb 16.6 g/dL (11.7-16.6) 03/19/23 00:42 Hct 50.6 % (42.0-52.0) 03/19/23 00:42 MCV 96.7 fl (80-94) H 03/19/23 00:42 MCH 31.7 pg (28.0-34.0) 03/19/23 00:42 MCHC 32.8 g/dL (30.0-36.0) 03/19/23 00:42 RDW 13.8 % (12.1-15.1) 03/19/23 00:42 Plt Count 156 10^3/cmm (130-400) 03/19/23 00:42 MPV 10.4 fL (7.4-10.4) 03/19/23 00:42 Neut % (Auto) 58.3 % 03/19/23 00:42 Lymph % (Auto) 30.4 % 03/19/23 00:42 [place] % (Auto) 6.4 % 03/19/23 00:42 Eos % (Auto) 3.8 % 03/19/23 00:42 Baso % (Auto) 0.8 % 03/19/23 00:42 Neut # (Auto) 7.30 10^3/uL (1.8-7.7) 03/19/23 00:42 Lymph # (Auto) 3.8 10^3/uL (0.8-4.8) 03/19/23 00:42 [place] # (Auto) 0.8 10^3/uL (0.2-0.9) 03/19/23 00:42 Eos # (Auto) 0.5 10^3/uL (0.0-0.8) 03/19/23 00:42 Baso # (Auto) 0.1 10^3/uL (0.0-0.1) 03/19/23 00:42 Nucleated RBC % (auto) 0 % 03/19/23 00:42 Nucleated RBCs # 0.0 /100WBC 03/19/23 00:42 Sodium 136 mmol/L (136-145) 03/19/23 00:42 Potassium 3.8 mmol/L (3.5-5.1) 03/19/23 00:42 Chloride 103 mmol/L (98-107) 03/19/23 00:42 Carbon Dioxide 20 mmol/L (22-29) L 03/19/23 00:42 Anion Gap 16.8 (5-19) 03/19/23 00:42 BUN 18 mg/dL (8-23) 03/19/23 00:42 Creatinine 1.1 mg/dL (0.7-1.2) 03/19/23 00:42 GFR Calculation Not Reportable 03/19/23 00:42 Glucose 218 mg/dL (65-115) H 03/19/23 00:42 Calculated Osmolality 291 mOsm/kg (285-295) 03/19/23 00:42 Calcium 8.9 mg/dL (8.5-10.5) 03/19/23 00:42 Total Bilirubin 0.3 mg/dL (0.15-1.2) 03/19/23 00:42 AST 13 U/L (0-40) 03/19/23 00:42 ALT 19 U/L (0-41) 03/19/23 00:42 Alkaline Phosphatase 112 U/L (40-130) 03/19/23 00:42 Troponin T Baseline 12 ng/L (0-15) 03/19/23 00:42 Troponin T 120 Minute 10.96 ng/L (0-15) 03/19/23 02:08 Delta Troponin T -1.04 ABS# (0-10) L 03/19/23 02:08 NT-Pro-B Natriuret Pep 352 pg/mL (0-125) H 03/19/23 00:42 Total Protein 6.6 g/dL (6.6-8.7) 03/19/23 00:42 Albumin 3.8 g/dL (3.5-5.2) 03/19/23 00:42 Globulin 2.8 g/dL (1.3-4.6) 03/19/23 00:42 EKG Data EKG 1: EKG Interpretation Date: 03/19/23 Interpretation: Sinus rhythm, first-degree AV block, 82 bpm, no ST segment elevation or depression seen. Dr. Suarez reviewed EKG and agreed there is no acute findings. EKG 2: EKG Interpretation Date: 03/19/23 EKG interpretation time: 02:15 Interpretation: Sinus rhythm with first-degree AV block. [address] segment elevation or depression seen. No acute changes compared to EKG from 2 hours ago Discharge Plan Discharge Patient Disposition: Home Clinical Impression: COPD (chronic obstructive pulmonary disease) Qualifiers: COPD type: unspecified COPD Qualified Code(s): J44.9 - Chronic obstructive pulmonary disease, unspecified Condition: Stable Prescriptions: New azithromycin 250 mg tablet See Rx Instructions .ROUTE .COMPLEX Qty: 6 0RF Rx Instructions: For 250 mg dose pack: take 500 mg today (day 1), then 250 mg for 4 days (days 2-5) prednisone 20 mg tablet 20 mg PO BID 3 Days Qty: 6 0RF albuterol sulfate 90 mcg/actuation HFA aerosol inhaler 2 inh inhalation Q6H PRN (Reason: shortness of breath or wheezing) Qty: 8.5 0RF No Action Tresiba FlexTouch U-100 100 unit/mL (3 mL) insulin pen 36 unit SUBCUT BEDTIME nitroglycerin [Nitrostat] 0.4 mg tablet, sublingual 0.4 mg SUBLINGUAL Q5M PRN (Reason: Chest Pain) Rx Instructions: max 3 doses losartan 100 mg tablet 100 mg PO DAILY 30 Days Qty: 30 5RF clopidogrel 75 mg tablet See Rx Instructions .ROUTE .COMPLEX Qty: 90 3RF Dose Instruction: Take 1 tablet by mouth once daily Rx Instructions: Take 1 tablet by mouth once daily isosorbide mononitrate 30 mg tablet extended release 24 hr 60 mg PO QAM Qty: 180 3RF simvastatin 20 mg tablet See Rx Instructions .ROUTE .COMPLEX Qty: 90 0RF Dose Instruction: TAKE 1 TABLET BY MOUTH ONCE DAILY AT BEDTIME Rx Instructions: TAKE 1 TABLET BY MOUTH ONCE DAILY AT BEDTIME atenolol 50 mg tablet 50 mg PO DAILY Qty: 90 3RF Victoza 2-Roberto 0.6 mg/0.1 mL (18 mg/3 mL) pen injector 1.2 mg SUBCUT QAM methocarbamol 750 mg tablet 750 mg PO Q6H PRN (Reason: spasms) Qty: 20 0RF Naprosyn 500 mg tablet 500 mg PO BID PRN (Reason: pain) Qty: 20 0RF Discharge Orders: Discharge ED (Routine); Ordered 03/19/23 Ordered By: Paco Perry Referrals: Alayna Bloom MD [Primary Care Provider] - Discharge Diet: Regular Discharge Activity: Increase activity as tolerated Patient Instructions: COPD (Chronic Obstructive Pulmonary Disease) (DC) Activity Restrictions/Additional Instructions: Follow-up with medical provider as directed in the next 5 to 7 days for reevaluation. Use prescribed albuterol inhaler as needed for any shortness of breath or wheezing. Take medications as prescribed. Check blood sugars closely for the next couple days since I am putting you on a short course of steroids. Return to the ER or your medical provider if condition worsens. Please read and understand discharge instructions. Thank you for choosing [facility] for your healthcare needs today. Please realize this is an emergency room and that we are providing you with a medical screening exam and this may not be complete and all inclusive of all the testing and or work up that you may need to determine your ailment or severity of your illness. It is very important that you follow up as instructed or that you return to the Emergency Department should you have concerns or if your condition changes or worsens in any way. 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
--- NOTE | 2023-03-19 00:25 | XRR_ITS ---
PROCEDURE INFORMATION: Exam: XR Abdomen Exam date and time: 03/19/2023 1:24 AM Age: 72 years old Clinical indication: Constipation TECHNIQUE: Imaging protocol: Radiologic exam of the abdomen. Views: Frontal supine view of the abdomen. 1 View. COMPARISON: CR XR KUB portable [id number] 08/26/2021 8:57 AM FINDINGS: Gastrointestinal tract: Nonspecific gaseous distention in the upper abdomen. No significant stool burden Bones/joints: Unremarkable. XR/XR KUB [id number] IMPRESSION: Nonspecific gaseous distention in the upper abdomen. No significant stool burden.
[2023-03-19 00:48] LABS: Basophils # 0.1 10^3/uL (0.0-0.1); Basophils % 0.8 %; Eosinophils # 0.5 10^3/uL (0.0-0.8); Eosinophils % 3.8 %; Hematocrit 50.6 % (42.0-52.0); Hemoglobin 16.6 g/dL (11.7-16.6); Lymphocytes # 3.8 10^3/uL (0.8-4.8); Lymphocytes % 30.4 %; Mean Corpuscular HGB Conc 32.8 g/dL (30.0-36.0); Mean Corpuscular Hemoglobin 31.7 pg (28.0-34.0); Mean Corpuscular Volume 96.7 fl (80-94); Mean Platelet Volume 10.4 fL (7.4-10.4); Monocytes # 0.8 10^3/uL (0.2-0.9); Monocytes % 6.4 %; Neutrophils % 58.3 %; Nucleated Red Blood Cells % 0 %; Platelet Count 156 10^3/cmm (130-400); Red Blood Count 5.23 10^6/uL (4.1-5.3); Red Cell Distribution Width 13.8 % (12.1-15.1); White Blood Count 12.5 10^3/uL (4.0-10.0)
[2023-03-19 01:22] LABS: Troponin(5th) Baseline 12 ng/L (0-15)
[2023-03-19 01:29] VITALS: BP 159/91; PULSE 79; RESP 18; O2SAT 96
[2023-03-19 01:29] LABS: Alanine Aminotransferase 19 U/L (0-41); Albumin Level 3.8 g/dL (3.5-5.2); Alkaline Phosphatase 112 U/L (40-130); Anion Gap 16.8 (5-19); Aspartate Amino Transferase 13 U/L (0-40); Blood Urea Nitrogen 18 mg/dL (8-23); Calcium 8.9 mg/dL (8.5-10.5); Carbon Dioxide 20 mmol/L (22-29); Chloride 103 mmol/L (98-107); Globulin 2.8 g/dL (1.3-4.6); Glucose 218 mg/dL (65-115); NT Pro B Type Natriuretic Pept 352 pg/mL (0-125); Osmolality Calculated 291 mOsm/kg (285-295); Potassium 3.8 mmol/L (3.5-5.1); Total Bilirubin 0.3 mg/dL (0.15-1.2); Total Protein 6.6 g/dL (6.6-8.7)
[2023-03-19 01:30] LABS: Sodium 136 mmol/L (136-145)
[2023-03-19] MEDS: ipratropium-albuterol 3 mL Neb 6 ML INHALATION (01:47)
[2023-03-19 01:49] VITALS: PULSE 79; RESP 18; O2SAT 98
--- NOTE | 2023-03-19 02:13 | ECG_ITS ---
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 Measurements Intervals Diller Rate: 80 P: 26 NC: 228 QRS: 69 QRSD: 82 T: 129 QT: 358 QTc: 413 Interpretive Statements SINUS RHYTHM WITH FIRST DEGREE AV BLOCK SEPTAL MYOCARDIAL INFARCTION , OF INDETERMINATE AGE [40+ ms Q WAVE IN V1/V2] MODERATE T-WAVE ABNORMALITY, CONSIDER LATERAL ISCHEMIA [-0.1+ mV T-WAVE IN I/aVL/V5/V6] Compared to ECG 03/19/2023 00:23:14 No significant changes Electronically Signed On 03-19-2023 15:58:54 CDT by Abhi Cobian M.D. [id number]
[2023-03-19 02:34] LABS: Troponin 5 2HR 10.96 ng/L (0-15)
[2023-03-19 02:35] VITALS: BP 158/80; PULSE 83; RESP 16; O2SAT 96
[2023-03-19 02:38] LABS: Troponin 5 2HR Delta -1.04 ABS# (0-10)
[2023-03-19 02:57] VITALS: BP 159/80; PULSE 81; RESP 20; O2SAT 96
== END 2023-03-19 02:59 | disposition home or self-care (01) ==
PROVIDERS: Emergency Provider Physician Assistant; PCP Internal Medicine
DX: J44.9 Chronic obstructive pulmonary disease, unspecified (principal); Z79.02 Long term (current) use of antithrombotics/antiplatelets; Z79.4 Long term (current) use of insulin; F17.210 Nicotine dependence, cigarettes, uncomplicated; E11.9 Type 2 diabetes mellitus without complications; I10 Essential (primary) hypertension; E78.2 Mixed hyperlipidemia; Z95.0 Presence of cardiac pacemaker
CPT/HCPCS: 36415; 71045; 74018; 80053; 83880; 84484; 85025; 93005; 94640; 99285

== ENCOUNTER → 2023-03-29 09:48 | Outpatient (BNVA) | payer MEDICARE, SELFPAY | PROVIDERS: PCP Internal Medicine; Visit Provider Internal Medicine Cardiovascular Disease | DX: I25.10 Atherosclerotic heart disease of native coronary artery without angina pectoris (principal); Z95.0 Presence of cardiac pacemaker; Z95.2 Presence of prosthetic heart valve; E78.2 Mixed hyperlipidemia; E11.65 Type 2 diabetes mellitus with hyperglycemia; Z79.4 Long term (current) use of insulin; I10 Essential (primary) hypertension; F17.200 Nicotine dependence, unspecified, uncomplicated | CPT/HCPCS: 99214 ==

== ENCOUNTER 2023-05-05 09:51 | Outpatient (CLI) | payer MEDICARE, SELFPAY ==
--- NOTE | 2023-05-05 10:00 | CT_ITS ---
WS: [id number] LDCT LUNG CANCER SCREENING HISTORY: NICOTINE DEPENDENCE,CIGARETTES TECHNIQUE: Axial imaging performed from the apices to 1 cm below the costophrenic angles. Coronal and sagittal reformats are submitted with axial MIP series. All CT scans at [facility] use at least one of these dose optimization techniques: automated exposure control; mA and/or kV adjustment per patient size (includes targeted exams where dose is matched to clinical indication); or iterativ e reconstruction. DLP: 83.10 mGy.cm DIvol: Mean CTDIvol: 1.70 (mGy) COMPARISON: 04/17/2022 Diagnostic quality: Satisfactory Lungs: No pulmonary mass or nodule. There are a few benign scattered granulomata. There is a small am ount of debris in the proximal bronchial tree. Heart: Normal size heart with no pericardial effusion.. Prior CABG. Heavy coronary artery calcificati ons. Prior aortic valve replacement. Other findings: Mild atherosclerosis aorta. No aneurysm. Normal sized pulmonary artery. No mediastina l or hilar adenopathy. Small hiatal hernia. Low-attenuation mass from the medial right lobe of the li rolando unchanged since 2020. This mass measures 2.4 cm and is probably a small cyst. There is an additio nal smaller low-attenuation lesion in the left lobe which is stable also. Hepatic and splenic granulo arriaza. IMPRESSION: CT/CT lung screening [id number] LUNG-RADS: 2-Benign Appearance or Behavior FOLLOW UP: 12 Month: Continue annual screening with LDCT OTHER FINDINGS (S MODIFIER): None.
== END 2023-05-05 09:52 | disposition home or self-care (01) ==
LOC: RAD 09:51
PROVIDERS: PCP Internal Medicine; Visit Provider Internal Medicine
DX: Z12.2 Encounter for screening for malignant neoplasm of respiratory organs (principal); F17.210 Nicotine dependence, cigarettes, uncomplicated
CPT/HCPCS: 71271

== ENCOUNTER → 2023-12-02 11:05 | Outpatient (BNVA) | payer MEDICARE, SELFPAY | PROVIDERS: PCP Internal Medicine; Visit Provider Internal Medicine Cardiovascular Disease | DX: Z95.2 Presence of prosthetic heart valve (principal); E78.2 Mixed hyperlipidemia; I10 Essential (primary) hypertension; I25.10 Atherosclerotic heart disease of native coronary artery without angina pectoris; Z95.0 Presence of cardiac pacemaker; F17.200 Nicotine dependence, unspecified, uncomplicated | CPT/HCPCS: 99214 ==

== ENCOUNTER 2024-01-17 10:24 | Outpatient (CLI) | payer MEDICARE, SELFPAY ==
--- NOTE | 2024-01-17 10:31 | XRR_ITS ---
PROCEDURE INFORMATION: Exam: XR Chest Exam date and time: 01/17/2024 10:42 AM Age: 73 years old Clinical indication: Condition or disease; Lung condition and disease; Copd; Complications not specified; Cough; Additional info: Cough/copd TECHNIQUE: Imaging protocol: Radiologic exam of the chest. Views: 2 views. COMPARISON: CT lung screening [id number] 05/05/2023 10:16 AM FINDINGS: Lungs: Lungs are hyperinflated consistent with COPD. There are no infiltrates or overt CHF. Pleural spaces: Unremarkable. No pleural effusion. No pneumothorax. Heart/Mediastinum: Unremarkable. No cardiomegaly. Prior cardiac valve repair. Bones/joints: Prior median sternotomy otherwise unremarkable for age. XR/XR chest 2V* [id number] IMPRESSION: COPD otherwise negative chest.
== END 2024-01-17 10:25 | disposition home or self-care (01) ==
LOC: RAD 10:27
PROVIDERS: PCP Internal Medicine; Visit Provider Nurse Practitioner Family
DX: R05.8 Other specified cough (principal); J44.9 Chronic obstructive pulmonary disease, unspecified
CPT/HCPCS: 71046

== ENCOUNTER 2024-05-08 09:25 | Outpatient (CLI) | payer MEDICARE, SELFPAY ==
--- NOTE | 2024-05-08 09:32 | CT_ITS ---
WS: [id number] LDCT LUNG CANCER SCREENING TECHNIQUE: Noncontrast CT of the chest with coronal and sagittal reformatted images. CLINICAL INFORMATION: NICOTINE DEPENDENCE,CIGARETTES COMPARISON: 05/05/2023 DLP: 79.39 mGy.cm DIvol: Mean CTDIvol: 1.60 (mGy) All CT scans at [facility] use at least one of these dose optimization techniques: automat ed exposure control; mA and/or kV adjustment per patient size (includes targeted exams where dose is matched to clinical indication); or iterative reconstruction. FINDINGS: Dilated ascending thoracic aorta measuring 4.1 cm unchanged. Subsegmental atelectasis RIGHT lower lobe. A few calcified granulomas. No new suspicious pulmonary parenchymal abnormalities. Incidental calcified granulomas. Prior CABG. Dense coronary calcification. Prior AVR. Mild aortic isidoro cification. No mediastinal or hilar lymphadenopathy. Small esophageal canal hernia. Stable RIGHT hepatic cyst gerry suring 2.5 cm. Splenic granulomas. Moderate thoracic kyphosis. CT/CT lung screening [id number] IMPRESSION: LUNG-RADS: 2-Benign Appearance or Behavior FOLLOW UP: 12 Month: Continue annual screening with LDCT
== END 2024-05-08 09:26 | disposition home or self-care (01) ==
LOC: RAD 09:28
PROVIDERS: PCP Internal Medicine; Visit Provider Internal Medicine
DX: F17.210 Nicotine dependence, cigarettes, uncomplicated (principal); Z95.1 Presence of aortocoronary bypass graft; K76.89 Other specified diseases of liver; L92.8 Other granulomatous disorders of the skin and subcutaneous tissue; M40.204 Unspecified kyphosis, thoracic region; I25.10 Atherosclerotic heart disease of native coronary artery without angina pectoris; I70.0 Atherosclerosis of aorta; J98.11 Atelectasis
CPT/HCPCS: 71271

== ENCOUNTER → 2024-05-30 15:25 | Outpatient (BNVA) | payer MEDICARE, SELFPAY | PROVIDERS: PCP Internal Medicine; Visit Provider Internal Medicine Cardiovascular Disease | DX: I25.10 Atherosclerotic heart disease of native coronary artery without angina pectoris (principal); Z95.2 Presence of prosthetic heart valve; I10 Essential (primary) hypertension; E78.2 Mixed hyperlipidemia; Z95.0 Presence of cardiac pacemaker | CPT/HCPCS: 99214 ==

== ENCOUNTER → 2024-09-29 18:34 | Outpatient (BNVA) | payer MEDICARE, SELFPAY | PROVIDERS: PCP Internal Medicine; Visit Provider Nurse Practitioner Family | DX: R05.9 Cough, unspecified (principal); R50.9 Fever, unspecified; J18.9 Pneumonia, unspecified organism | CPT/HCPCS: 87400; 87426 ==

== ENCOUNTER → 2024-11-21 09:51 | Outpatient (BNVA) | payer MEDICARE, SELFPAY | PROVIDERS: PCP Internal Medicine; Visit Provider Nurse Practitioner Family | DX: Z95.2 Presence of prosthetic heart valve (principal); I25.10 Atherosclerotic heart disease of native coronary artery without angina pectoris; I10 Essential (primary) hypertension; E78.2 Mixed hyperlipidemia; Z95.0 Presence of cardiac pacemaker | CPT/HCPCS: 99213 ==

== ENCOUNTER → 2025-07-06 10:30 | Outpatient (BNVA) | payer MEDICARE, SELFPAY | PROVIDERS: PCP Internal Medicine; Visit Provider Internal Medicine Cardiovascular Disease | DX: I25.10 Atherosclerotic heart disease of native coronary artery without angina pectoris (principal); I10 Essential (primary) hypertension; Z95.0 Presence of cardiac pacemaker; Z95.2 Presence of prosthetic heart valve; F17.210 Nicotine dependence, cigarettes, uncomplicated | CPT/HCPCS: 99214 ==

== ENCOUNTER 2025-08-31 07:54 | Inpatient (IN) | payer MEDICARE, SELFPAY ==
[2025-08-31] VITALS (8 sets, daily range): BP systolic 120–167; BP diastolic 64–88; PULSE 64–78; RESP 17–18; TEMP 36.3–36.8; O2SAT 94–100; BMI 27.2
--- NOTE | 2025-08-31 08:12 | W.ED.MALEGU ---
HPI - Male Genitourinary General: Chief complaint: Urogenital-Male Stated complaint: blood in urian sent by pcp Time Seen by Provider: 08/31/25 07:58 History of Present Illness: 75-year-old man with a history of coronary artery disease, COPD, pacemaker placement, diabetes, hypertension, aortic valve stenosis who presents to the emergency room with concerns for blood in his urine. He says his PCP told him to come to the emergency room. He is not quite sure why. He said they were worried about kidney disease and hematuria. He has no symptoms. No flank pain. No dysuria. He has noticed blood in his urine. He is on Plavix Related Data Home Medications ?Medication ?Instructions ?Recorded ?Confirmed liraglutide 0.6 mg/0.1 mL (18 mg/3 1.2 mg SUBCUT QAM 08/04/21 08/31/25 mL) subcutaneous pen injector (Victoza 2-Roberto) insulin degludec 100 unit/mL (3 36 unit SUBCUT BEDTIME 09/23/21 08/31/25 mL) subcutaneous pen (Tresiba FlexTouch U-100 insulin) empagliflozin 25 mg tablet 25 mg PO DAILY 07/06/25 08/31/25 (Jardiance) clopidogrel 75 mg tablet 75 mg PO DAILY 08/31/25 08/31/25 isosorbide mononitrate 30 mg 60 mg PO QAM 08/31/25 08/31/25 tablet,extended release 24 hr losartan 100 mg tablet 100 mg PO DAILY 08/31/25 08/31/25 simvastatin 20 mg tablet 20 mg PO BEDTIME 08/31/25 08/31/25 Previous Rx's ?Medication ?Instructions ?Recorded nitroglycerin 0.4 mg sublingual See Rx Instructions .Route 08/04/23 tablet .COMPLEX #25 tabs atenolol 50 mg tablet 50 mg PO DAILY #90 tabs 03/07/25 Allergies Allergy/AdvReac Type Severity Reaction Status Date / Time codeine Allergy Unknown unknown Verified 11/21/24 09:59 Penicillins Allergy Unknown unknown Verified 11/21/24 09:59 Sulfa (Sulfonamide Allergy Unknown unknown Verified 11/21/24 09:59 Antibiotics) Review of Systems Narrative: Constitutional symptoms: Negative except as documented in HPI. Skin symptoms: Negative except as documented in HPI. Eye symptoms: Negative except as documented in HPI. ENMT symptoms: Negative except as documented in HPI. Respiratory symptoms: Negative except as documented in HPI. Cardiovascular symptoms: Negative except as documented in HPI. Gastrointestinal symptoms: Negative except as documented in HPI. Genitourinary symptoms: Negative except as documented in HPI. Musculoskeletal symptoms: Negative except as documented in HPI. Neurologic symptoms: Negative except as documented in HPI. Psychiatric symptoms: Negative except as documented in HPI. Endocrine symptoms: Negative except as documented in HPI. PFSH ED PFSH: Medical History Pacemaker Syncope Migraine ASHD (arteriosclerotic heart disease) COPD (chronic obstructive pulmonary disease) Mixed hyperlipidemia Diabetes Close monitoring of the blood sugar and management as per the primary Hypertension Aortic valve stenosis Surgical History H/O aortic valve replacement History of colon resection Family History Grandfather CAD (coronary artery disease) [place] Brother Cancer Brother Cancer Diabetes Sister Cancer Diabetes Mother Dementia Diabetes Sister Diabetes Father Cerebral hemorrhage Denies family history of Clotting disorder Chronic kidney disease (CKD) Suicide Anesthesia complication Bleeding disorder Lung disease Stroke Social History (Updated 07/06/25 @ 10:55 by Mone Valverde LPN) Smoking and tobacco/nicotine status: current every day tobacco/nicotine user cigarettes Packs smoked per day: 1 Years cigarettes smoked: 70 Alcohol intake: never Substance/Drug Use: never Physical Exam Narrative: EXAM NARRATIVE: General: Alert, no acute distress. Skin: Warm, dry. Head: Normocephalic, atraumatic. Neck: Supple, trachea midline. Eye: Extraocular movements are intact. Ears, nose, mouth and throat: mucosa moist. Cardiovascular: Regular, Normal peripheral perfusion. 3+ pitting tibial edema Respiratory: Lungs are clear to auscultation, respirations are non-labored, breath sounds are equal, Symmetrical chest wall expansion. Gastrointestinal: Soft, Nontender, Non distended Musculoskeletal: Normal ROM, no deformity. Neurological: Alert and oriented, No focal neurological deficit observed. Psychiatric: Cooperative, appropriate mood & affect. Course Vital Signs: Vital signs: Vital Signs Temperature 97.6 F 08/31/25 08:00 Pulse Rate 75 08/31/25 08:00 Respiratory Rate 17 08/31/25 08:00 Blood Pressure 167/88 08/31/25 08:00 Pulse Oximetry 97 08/31/25 08:00 Oxygen Delivery Me thod Room Air 08/31/25 08:00 MDM - Male Medical Decision Making Medical decision making Patient's reason for coming to the emergency room: Hematuria Social determinants: Patient is retired I reviewed the patient's medical record. 75-year-old man with a history of coronary artery disease, COPD, pacemaker placement, diabetes, hypertension, aortic valve stenosis I reviewed the patient's current home meds Patient is on Plavix. No other anticoagulation Alternate historians: None Differential diagnosis for complaint of hematuria including but not limited to and based on the above HPI, review of systems and physical exam: UTI / hemorrhagic cystitis, pyelonephritis, kidney stones, bladder cancer Orders placed to evaluate differential diagnosis based on the above differential, HPI and physical exam Lab Review: Laboratory results were reviewed and interpreted by myself the emergency room physician. No leukocytosis. No anemia. BUN and creatinine are elevated at 44 and 6.9. Last labs here had a creatinine of 1.1 with that was in 2022. However I did speak with his primary care physician who says that just a couple of months ago his creatinine was 1.1. At that it was elevated to 5 3 days ago and is now 6.9. Potassium is on the low side of normal at 3.3. Urinalysis shows 3+ protein 3+ blood. No bacteria, no leukocyte esterase and nitrate negative so I do not think this is infected CT of the abdomen and pelvis without contrast: This was ordered to rule out obstructive uropathy. Fluid distention of the small bowel and colon. Soft tissue edema and anasarca. Very small amount of ascites in the pelvis. No renal obstructions. This was reviewed and interpreted by myself the emergency room physician. I also reviewed the radiology report. Assessment of risk: Level of risk: High risk patient. Multiple comorbidities Hospitalization considerations: Reexamination: Patient remained stable. No increased work of breathing. No altered mental status. No focal motor deficits. I spoke with the patient He says he thinks Jardiance is causing his issues. Consultation: I spoke with Dr. Bloom, the patient's PCP who informing the patient had near normal creatinine just a few months ago and his creatinine normally runs between 1 and 1.3. This is acute. She request that the patient be admitted. Consultation: I spoke with Dr. Head who is on-call for the hospital service who agrees to admission. Consultation: I spoke with Dr. Marrufo who is on-call for nephrology who is seeing the patient via telemedicine in the emergency room. Assessment and plan: Acute on chronic renal failure Edema -I discussed the patient with the hospitalist on-call who is admitting the patient. - Discussed findings and plan with patient. Answered any questions. - All laboratory values were reviewed and interpreted personally by myself, the ER physician - All imaging was reviewed and interpreted personally by myself, the ER physician. - Evaluation and treatment of this problem were appropriate in the emergency setting Lab Data 08/31/25 08:12 08/31/25 08:12 Radiology Impressions Abdomen/Pelvis CT 08/31/25 08:45 IMPRESSION: 1. Mild fluid distention of the small bowel and colon consistent with a history of diarrhea. 2. Soft tissue edema and anasarca. 3. Very small amount of ascites in the pelvis. 4. No renal obstruction. There is perinephric stranding which can be chronic or related to pyelonephritis. 5. Partial colectomy. 6. Very tiny bilateral pleural effusions. Laboratory Results WBC 6.94 10^3/uL (3.29-11.43) 08/31/25 08:12 RBC 3.82 10^6/uL (3.85-5.65) L 08/31/25 08:12 Hgb 11.40 g/dL (11.27-16.99) 08/31/25 08:12 Hct 34.4 % (37-53) L 08/31/25 08:12 MCV 90.1 fl (82-101) 08/31/25 08:12 MCH 29.8 pg (27-33) 08/31/25 08:12 MCHC 33.1 g/dL (30-55) 08/31/25 08:12 RDW 14.3 % (12.1-15.1) 08/31/25 08:12 Plt Count 136 10^3/cmm (157-399) L 08/31/25 08:12 MPV 9.2 fL (7.4-10.4) 08/31/25 08:12 Neut % (Auto) 71.9 % 08/31/25 08:12 Lymph % (Auto) 20.9 % 08/31/25 08:12 [place] % (Auto) 6.1 % 08/31/25 08:12 Eos % (Auto) 0.3 % 08/31/25 08:12 Baso % (Auto) 0.4 % 08/31/25 08:12 Neut # (Auto) 4.99 10^3/uL (1.8-7.7) 08/31/25 08:12 Lymph # (Auto) 1.5 10^3/uL (0.8-4.8) 08/31/25 08:12 [place] # (Auto) 0.4 10^3/uL (0.2-0.9) 08/31/25 08:12 Eos # (Auto) 0.0 10^3/uL (0.0-0.8) 08/31/25 08:12 Baso # (Auto) 0.0 10^3/uL (0.0-0.1) 08/31/25 08:12 Nucleated RBC % (auto) 0 % 08/31/25 08:12 Nucleated RBCs # 0.0 /100WBC 08/31/25 08:12 PT 14.30 SECONDS (12.1-14.9) 08/31/25 08:12 INR 1.03 (0.8-1.2) 08/31/25 08:12 APTT 31.1 SECONDS (23.9-36.7) 08/31/25 08:12 Sodium 135 mmol/L (136-145) L 08/31/25 08:12 Potassium 3.3 mmol/L (3.5-5.1) L 08/31/25 08:12 Chloride 101 mmol/L (98-107) 08/31/25 08:12 Carbon Dioxide 19 mmol/L (22-29) L 08/31/25 08:12 Anion Gap 18.3 (5-19) 08/31/25 08:12 BUN 44 mg/dL (8-23) H 08/31/25 08:12 Creatinine 6.9 mg/dL (0.7-1.2) H* 08/31/25 08:12 GFR Calculation Not Reportable 08/31/25 08:12 Glucose 155 mg/dL (65-115) H 08/31/25 08:12 Calculated Osmolality 294 mOsm/kg (285-295) 08/31/25 08:12 Calcium 7.8 mg/dL (8.5-10.5) L 08/31/25 08:12 Total Bilirubin 0.7 mg/dL (0.15-1.2) 08/31/25 08:12 AST 14 U/L (0-40) 08/31/25 08:12 ALT 11 U/L (0-41) 08/31/25 08:12 Alkaline Phosphatase 128 U/L (40-130) 08/31/25 08:12 Total Protein 7.2 g/dL (6.6-8.7) 08/31/25 08:12 Albumin 3.3 g/dL (3.5-5.2) L 08/31/25 08:12 Globulin 3.9 g/dL (1.3-4.6) 08/31/25 08:12 Urine Color Red (Yellow) A 08/31/25 08:06 Urine Appearance Clear (CLEAR) 08/31/25 08:06 Urine pH 5.5 (5-7) 08/31/25 08:06 Ur Specific [place] 1.011 (1.005-1.030) 08/31/25 08:06 Urine Protein 3+ (Negative) A 08/31/25 08:06 Urine Glucose (UA) 2+ (Normal) H 08/31/25 08:06 Urine Ketones Negative (Negative) 08/31/25 08:06 Urine Blood 3+ (Negative) A 08/31/25 08:06 Urine Nitrate Negative (Negative) 08/31/25 08:06 Urine Bilirubin Negative (Negative) 08/31/25 08:06 Urine Urobilinogen 1.0 mg/dL (Negative) 08/31/25 08:06 Ur Leukocyte Esterase Trace (Negative) A 08/31/25 08:06 Urine RBC >100 /hpf (0-2) H 08/31/25 08:06 Urine WBC 11-20 /hpf (0-5) H 08/31/25 08:06 Ur Squamous Epith Cells 0-5 /hpf (0-5) 08/31/25 08:06 Amorphous Sediment Not Reportable 08/31/25 08:06 Urine Bacteria None seen /hpf (NONE) 08/31/25 08:06 Hyaline Casts 4.11 /lpf 08/31/25 08:06 All radiology interpretation(s) finalized by discharge Discharge Plan Discharge Condition: Stable Prescriptions: No Action Tresiba FlexTouch U-100 100 unit/mL (3 mL) insulin pen 36 unit SUBCUT BEDTIME Jardiance 25 mg tablet 25 mg PO DAILY nitroglycerin 0.4 mg tablet, sublingual See Rx Instructions .ROUTE .COMPLEX Qty: 25 0RF Dose Instruction: DISSOLVE ONE TABLET UNDER THE TONGUE EVERY 5 MINUTES NEEDED FOR CHEST PAIN. DO NOT EXCEED A TOTAL OF 3 DOSES IN 15 MINUTES Rx Instructions: DISSOLVE ONE TABLET UNDER THE TONGUE EVERY 5 MINUTES NEEDED FOR CHEST PAIN. DO NOT EXCEED A TOTAL OF 3 DOSES IN 15 MINUTES atenolol 50 mg tablet 50 mg PO DAILY Qty: 90 3RF liraglutide [Victoza 2-Roberto] 0.6 mg/0.1 mL (18 mg/3 mL) pen injector 1.2 mg SUBCUT QAM isosorbide mononitrate 30 mg tablet extended release 24 hr 60 mg PO QAM clopidogrel 75 mg tablet 75 mg PO DAILY simvastatin 20 mg tablet 20 mg PO BEDTIME losartan 100 mg tablet 100 mg PO DAILY Referrals: Alayna Bloom MD [Primary Care Provider, Internal Medicine] Print Language: Emirati Coding Level of Care Code ED [employer] for [employer] Rico
[2025-08-31 08:13] LABS: Glucose Urine UA 2+ (Normal); Nitrate Urine Negative (Negative); Specific Gravity, Urine 1.011 (1.005-1.030)
[2025-08-31 08:17] LABS: Hematocrit 34.4 % (37-53); Hemoglobin 11.40 g/dL (11.27-16.99); Mean Corpuscular HGB Conc 33.1 g/dL (30-55); Mean Corpuscular Hemoglobin 29.8 pg (27-33); Mean Corpuscular Volume 90.1 fl (82-101); Nucleated Red Blood Cells % 0 %; Platelet Count 136 10^3/cmm (157-399); Red Blood Count 3.82 10^6/uL (3.85-5.65); White Blood Count 6.94 10^3/uL (3.29-11.43)
[2025-08-31 08:35] LABS: INR 1.03 (0.8-1.2); Prothrombin Time 14.30 SECONDS (12.1-14.9)
[2025-08-31 08:37] LABS: Partial Thromboplastin Time 31.1 SECONDS (23.9-36.7)
[2025-08-31 08:40] LABS: Alanine Aminotransferase 11 U/L (0-41); Albumin Level 3.3 g/dL (3.5-5.2); Alkaline Phosphatase 128 U/L (40-130); Anion Gap 18.3 (5-19); Aspartate Amino Transferase 14 U/L (0-40); Blood Urea Nitrogen 44 mg/dL (8-23); Calcium 7.8 mg/dL (8.5-10.5); Carbon Dioxide 19 mmol/L (22-29); Chloride 101 mmol/L (98-107); Globulin 3.9 g/dL (1.3-4.6); Glucose 155 mg/dL (65-115); Osmolality Calculated 294 mOsm/kg (285-295); Potassium 3.3 mmol/L (3.5-5.1); Sodium 135 mmol/L (136-145); Total Protein 7.2 g/dL (6.6-8.7)
--- NOTE | 2025-08-31 08:45 | CT_ITS ---
WS: [id number] CT ABDOMEN AND PELVIS NONCONTRAST HISTORY: Renal failure TECHNIQUE: Imaging performed through the abdomen and pelvis. Coronal and sagittal reformats are submitted. All CT scans at [facility] use at least one of these dose optimization techniques: automated exposure control; mA and/or kV adjustment per patient size (includes targeted exams where dose is matched to clinical indication); or iterative reconstruction. DLP: 719.23 mGy.cm COMPARISON: 08/25/2021 Study is compromised by breathing motion artifact. Lower thorax: Motion artifact. No pneumonia. Very tiny bilateral pleural effusions. Heart is normal size. Liver: Limited evaluation of the liver. Motion artifact. Stable low-attenuation mass from the medial RIGHT lobe of the liver measuring 2.4 x 3.3 cm. Mass was also present on 08/25/2021 with very slight increase in size. Gallbladder: Limited with significant motion artifact. Pancreas: Normal size and attenuation. Normal pancreatic duct. No pancreatitis or mass. Spleen: Normal. Adrenal glands: Normal. No mass. Right kidney: Normal size kidney with mild perinephric stranding. No obstruction. Left kidney: Normal size kidney with perinephric stranding, no obstruction. Aorta: Mild atherosclerosis abdominal aorta with no aneurysm. No free fluid, intraperitoneal air or significant lymphadenopathy. GI tract: Stomach is mildly distended with fluid. No small bowel obstruction. There is mild increased fluid in the small bowel and colon. Although this history wasn't provide there does appear to been a colon resection. Anastomotic sutures are noted involving the RIGHT colon. The appendix is not identified. Abdominal wall: Ventral abdominal wall hernia contains fat only. There is mild mesenteric edema and anasarca. Pelvis: Small amount of free fluid in the pelvis and presacral soft tissue thickening. Patent bilateral inguinal canals containing fat only. Osseous structures: Moderate degenerative changes at the hips. Partial fusion of the SI joints. CT/CT abdomen pelvis wo con [id number] IMPRESSION: 1. Mild fluid distention of the small bowel and colon consistent with a histor y of diarrhea. 2. Soft tissue edema and anasarca. 3. Very small amount of ascites in the pelvis. 4. No renal obstruction. There is perinephric stranding which can be chronic o r related to pyelonephritis. 5. Partial colectomy. 6. Very tiny bilateral pleural effusions.
--- NOTE | 2025-08-31 10:01 | PC.PHAR ---
Pt states he has not taken his insulin yet today.
--- NOTE | 2025-08-31 11:06 | PM.CONSULT ---
Providers/Reason For Consult Consulting Physician/Specialty*: Miguel Marrufo MD/telenephrology Reason for Consult*: Acute kidney injury Requesting Physician: Attending Physician: DR Max Primary Care Provider: Alayna Bloom MD History of Present Illness History of Present Illness Toni Riojas is a 75 year old male history of hypertension diabetes aortic valve replacement pacemaker, COPD. Patient per report has some degree of CKD with baseline creatinine 1.3 mg/dL . 2 years ago here with creatinine of 1.1 mg/dL. The patient went to see his physician earlier this week blood test were drawn and he had renal failure and patient was sent to the emergency room he refused to go till today Fortune his creatinine continues to rise. The patient states that a couple weeks ago he was having severe back pain he denies using any NSAIDs. He had some hematuria and he assumed it was all his back. The patient says that he is feeling better and feels fine he does not know why he is here. He says he is eating he is drinking he is urinating he has no nausea he has no vomiting and he has no diarrhea shortness of breath. He denies passing a kidney stone. Today's blood test shows a creatinine of 6.9 mg/dL imaging in the ER did not show any hydronephrosis so nephrology was called to consult. Review of Systems Narrative: As above. He denies fevers chills headaches shortness of breath chest pain abdominal pain he does have some edema. The back pain has improved. Medications/Allergies Home Medications ?Medication ?Instructions ?Recorded ?Confirmed ?Last Taken ?Type liraglutide 0.6 mg/0.1 mL (18 mg/3 1.2 mg SUBCUT QAM 08/04/21 08/31/25 08/30/25 History mL) subcutaneous pen injector (Victoza 2-Roberto) insulin degludec 100 unit/mL (3 36 unit SUBCUT BEDTIME 09/23/21 08/31/25 08/30/25 History mL) subcutaneous pen (Tresiba FlexTouch U-100 insulin) nitroglycerin 0.4 mg sublingual See Rx Instructions .Route 08/04/23 08/31/25 Unknown Rx tablet .COMPLEX #25 tabs atenolol 50 mg tablet 50 mg PO DAILY #90 tabs 03/07/25 08/31/2525 Rx empagliflozin 25 mg tablet 25 mg PO DAILY 07/06/25 08/31/25 08/31/25 History (Jardiance) clopidogrel 75 mg tablet 75 mg PO DAILY 08/31/25 08/31/25 08/31/25 History isosorbide mononitrate 30 mg 60 mg PO QAM 08/31/25 08/31/25 08/31/25 History tablet,extended release 24 hr losartan 100 mg tablet 100 mg PO DAILY 08/31/25 08/31/25 08/31/25 History simvastatin 20 mg tablet 20 mg PO BEDTIME 08/31/25 08/31/25 08/30/25 History Allergies Allergy/AdvReac Type Severity Reaction Status Date / Time codeine Allergy Unknown unknown Verified 11/21/24 09:59 Penicillins Allergy Unknown unknown Verified 11/21/24 09:59 Sulfa (Sulfonamide Allergy Unknown unknown Verified 11/21/24 09:59 Antibiotics) PFSH Acute PFSH: Medical History (Updated 08/31/25 @ 11:16 by Miguel Marrufo MD) Pacemaker Syncope Migraine ASHD (arteriosclerotic heart disease) COPD (chronic obstructive pulmonary disease) Mixed hyperlipidemia Diabetes Close monitoring of the blood sugar and management as per the primary Hypertension Aortic valve stenosis Surgical History H/O aortic valve replacement History of colon resection Family History Grandfather CAD (coronary artery disease) [place] Brother Cancer Brother Cancer Diabetes Sister Cancer Diabetes Mother Dementia Diabetes Sister Diabetes Father Cerebral hemorrhage Denies family history of Clotting disorder Chronic kidney disease (CKD) Suicide Anesthesia complication Bleeding disorder Lung disease Stroke Social History (Updated 07/06/25 @ 10:55 by Mone Valverde LPN) Smoking and tobacco/nicotine status: current every day tobacco/nicotine user cigarettes Packs smoked per day: 1 Years cigarettes smoked: 70 Alcohol intake: never Substance/Drug Use: never Vitals/I&O/Wt Last Vital Signs Temp 97.6 F 08/31/25 08:00 Pulse 67 08/31/25 10:03 Resp 17 08/31/25 08:00 BP 167/88 08/31/25 08:00 Pulse Ox 98 08/31/25 10:03 O2 Del Method Room Air 08/31/25 08:00 Weight last 48 hrs Weight 104.326 kg Physical Exam Narrative: Patient is comfortable no apparent distress vital signs noted blood pressure mildly elevated. He is not using any oxygen. HEENT normocephalic atraumatic. Neck is supple no JVP no carotid bruits lungs some basilar crackles on the right side. Heart is regular Abdomen is soft positive bowel sounds. Extremities have 1+ bilateral edema neurologically awake alert oriented x 3. Data 08/31/25 08:12 08/31/25 08:12 A&P Assessment and plan 1. DEONNA (acute kidney injury): 75-year-old man with diabetes, hypertension, aortic valve replacement, COPD, permanent pacemaker 1. Acute kidney injury CT scan reviewed right kidney and left kidney are normal size with perinephric stranding. He has no hydronephrosis. Of note his urine is red he has 3+ protein 2+ glucose 3+ blood urine RBCs greater than 100, 11-20 white cells. I am concerned that the patient had obstruction that may have been caused by a stone that could have caused acute kidney injury as he was having back pain however the patient does not have any obstruction at this time and he states he is urinating well which makes obstruction less likely. The patient has a good blood pressure and does not appear to be prerenal. Therefore worried about intrinsic renal disease given his age and also that his hemoglobin is dropped I will send an SPEP serum immunofixation and free light chains to look for myeloma. The patient has gross hematuria, will check a CPK. Will also check VEENA ANCA anti-GBM. And hepatitis serologies. Will monitor chemistries. Please hold Jardiance and losartan. Will send urine electrolytes urine microalbumin creatinine urine protein creatinine. 2. Please only give 40 mg once potassium do not replete too aggressively. 3. Of note patient had a low bicarbonate in 2020 and 2022 bicarbonate of 19 is similar. Will monitor renal function. If patient is not doing well 1 may consider giving IV fluids. Further intervention will depend on original workup. Plan: See above. PDMP PDMP Reviewed: Not Reviewed Consult Attestations Medical Necessity Statement: Acute kidney injury hypokalemia Time Spent in Patient Care: Greater than 35 minutes (>than 50% of time spent in counselling and/or direct pt care on unit). Coding Level of Care Code Acute Code for Chg Fwd Diagnoses DEONNA (acute kidney injury) N17.9
[2025-08-31 12:02] LABS: Creatinine Urine, Random 54 mg/dL (39-259)
[2025-08-31 12:15] LABS: Microalbum Creatinine Ratio Ur 3278 mg/dL (0-20)
[2025-08-31 12:21] LABS: Hepatitis B Surface Antigen Non-Reactive (Nonreactive)
--- NOTE | 2025-08-31 12:33 | PM.HP ---
Providers/Chief Complaint Admitting Physician: Eric Head MD Primary Care Provider: Alayna Bloom MD Chief Complaint: blood in urian sent by pcp History of Present Illness Toni Riojas is a 75 year old male w/ pmhx of CAD, HTN, HLD, ASHD, aortic valve stenosis, placemaker placement, COPD, and DM2 presents to the ED today via POV after receiving phone call from PCP with c/o hematuria. Patient resting in bed on RA, no famliy noted to be at bedside. Patient denies significant pain at this time. Patient states he came to ED because his PCP has been calling him since 08/28/25 and told him to come to ED. Patient is A&Ox4, noted to be very poor historian. He reports hematuria but is unable to remember when this began- He states, I do not know, I do not look when I pee. He denies abd pain, N/V, fever, difficulty urinating, severe back pain, recent medication changes. He reports associated signs and symptoms of diarrhea, headache, shortness of breath with exertion, and significant bilateral lower extremity edema. Patient to be admitted to hospitalist services with nephrology consultation service for further medical management and care. While in ED a CBC, CMP, PT, INR, APTT was collected, reviewed and results as follows: WBC 6.94, Neut 4.99, RBC 3.82, Hgb 11.40, Hct 34.4, Plt 136. Na 135, K 3.3, Gas Regulator Repairer Helper 6.9, BUN 44, Rani Phos 128, PT 14.30, INR 1.03, APTT 31.1. Review of Systems General: Reports: 10 or more systems reviewed and unremarkable except in HPI and below Medications/Allergies Home Medications ?Medication ?Instructions ?Recorded ?Confirmed ?Last Taken ?Type liraglutide 0.6 mg/0.1 mL (18 mg/3 1.2 mg SUBCUT QAM 08/04/21 08/31/25 08/30/25 History mL) subcutaneous pen injector (Victoza 2-Roberto) insulin degludec 100 unit/mL (3 36 unit SUBCUT BEDTIME 09/23/21 08/31/25 08/30/25 History mL) subcutaneous pen (Tresiba FlexTouch U-100 insulin) nitroglycerin 0.4 mg sublingual See Rx Instructions .Route 08/04/23 08/31/25 Unknown Rx tablet .COMPLEX #25 tabs atenolol 50 mg tablet 50 mg PO DAILY #90 tabs 03/07/25 08/31/25 08/31/25 Rx empagliflozin 25 mg tablet 25 mg PO DAILY 07/06/25 08/31/25 08/31/25 History (Jardiance) clopidogrel 75 mg tablet 75 mg PO DAILY 08/31/25 08/31/25 08/31/25 History isosorbide mononitrate 30 mg 60 mg PO QAM 08/31/25 08/31/25 08/31/25 History tablet,extended release 24 hr losartan 100 mg tablet 100 mg PO DAILY 08/31/25 08/31/25 08/31/25 History simvastatin 20 mg tablet 20 mg PO BEDTIME 08/31/25 08/31/25 08/30/25 History Allergies Allergy/AdvReac Type Severity Reaction Status Date / Time codeine Allergy Unknown unknown Verified 11/21/24 09:59 Penicillins Allergy Unknown unknown Verified 11/21/24 09:59 Sulfa (Sulfonamide Allergy Unknown unknown Verified 11/21/24 09:59 Antibiotics) PFSH Acute PFSH: Medical History (Updated 08/31/25 @ 16:26 by Meagan Park NP) Pacemaker Syncope Migraine ASHD (arteriosclerotic heart disease) COPD (chronic obstructive pulmonary disease) Mixed hyperlipidemia Diabetes Close monitoring of the blood sugar and management as per the primary Hypertension Aortic valve stenosis Surgical History H/O aortic valve replacement History of colon resection Family History Grandfather CAD (coronary artery disease) DC Brother Cancer Brother Cancer Diabetes Sister Cancer Diabetes Mother Dementia Diabetes Sister Diabetes Father Cerebral hemorrhage Denies family history of Clotting disorder Chronic kidney disease (CKD) Suicide Anesthesia complication Bleeding disorder Lung disease Stroke Social History (Updated 07/06/25 @ 10:55 by Mone Valverde LPN) Smoking and tobacco/nicotine status: current every day tobacco/nicotine user cigarettes Packs smoked per day: 1 Years cigarettes smoked: 70 Alcohol intake: never Substance/Drug Use: never Vitals/I&O/Wt Last Vital Signs Temp 97.6 F 08/31/25 08:00 Pulse 64 08/31/25 11:58 Resp 17 08/31/25 08:00 BP 155/86 08/31/25 11:58 Pulse Ox 98 08/31/25 11:58 O2 Del Method Room Air 08/31/25 12:11 Weight last 48 hrs Weight 109.571 kg Weight 104.326 kg Physical Exam Narrative: General: A&Ox4 , resting in bed on room air, no apparent distress HEENT: Normo-cephalic, atraumatic, grossly unremarkable exam Cardio: NSR, normal S1-S2 without any murmurs, rubs, or gallops and JVD normal Respiratory: Clear to anterior bilateral upper and lower lobes on auscultation w/o any wheezes, stridor, rhonchi GI: Abd soft, non-tender, non-distended, normo-active bowel sounds present. Diarrhea : Hematuria Neuro: Moves all extremities, no sensory deficits, Normal speech Behavior: Appropriate and cooperative Extremities: 4+ edema to bilateral lower extremities, adequate palpable pulses. No clubbing, cyanosis. Full ROM Data 08/31/25 08:12 08/31/25 08:12 Other Labs: 08/31: Abd/Pelvis CT: Reviewed and results as follows:Mild fluid distention of the small bowel and colon consistent with a history of diarrhea. Soft tissue edema and anasarca. Very small amount of ascites in the pelvis. No renal obstruction. There is perinephric stranding which can be chronic or related to pyelonephritis. Partial colectomy. Very tiny bilateral pleural effusions. A&P Assessment and plan 1. DEONNA (acute kidney injury): 2. Pyelonephritis: 3. Hypokalemia: 4. Mixed hyperlipidemia: 5. Diabetes: 6. Hypertension: 7. H/O aortic valve replacement: 8. ASHD (arteriosclerotic heart disease): Plan: DEONNA, Intrinsic ? Gross hematuria POA ? 08/31: Abd/Pelvis CT: Reviewed and results as follows: Mild fluid distention of the small bowel and colon consistent with a history of diarrhea. Soft tissue edema and anasarca. Very small amount of ascites in the pelvis. No renal obstruction. There is perinephric stranding which can be chronic or related to pyelonephritis. Partial colectomy. Very tiny bilateral pleural effusions. ? 08/31: Gas Regulator Repairer Helper 6.9, BUN 44, Rani Phos 128 ? Nephrology consulted, Dr. Castellanos. Expertise and recommendations appreciated. ? Hold Jardiance and losartan ? Strict I&O's ? Avoid nephrotoxins ? Monitor renal function ? CBC, CMP, mag daily Complicated UTI Pyelonephritis Suspected stone obstruction that has since passed, patient urinating well 08/31: UA: Urine is red he has 3+ protein 2+ glucose 3+ blood urine RBCs greater than 100, 11-20 white cells. Urine culture obtained, pending. IV Abx Ciprofloxacin q24hr, de-escalate antibiotics as appropriate Hypokalemia 08/31: K 3.3 Continuous cardiac monitoring Supplement with potassium 20 mEq PO Recheck BMP ordered this evening DM2 A1c 6.7% Blood glucose monitoring, ACHS Low regimen sliding scale Hypoglycemic protocol Carb consistent diet Hold home medication empagliflozin due to DEONNA CAD HLD Lipid panel ordered for a.m., pending. Continue home medication simvastatin 20 mg PO dly HTN Continue home medication isosorbide mononitrate 60mg PO dly Continue home medication atenolol 50 mg PO dly Hold home medication losartan due to DEONNA ASHD AVR Placemaker placement 08/2021 Stable, Hold plavix for now CODE STATUS: Full code VTE prophylaxis: SCDs, holding due to hematuria. PDMP PDMP Reviewed: Not Reviewed Attestations Medical Necessity Statement*: Admitted under inpatient status. Given complexity of patient's presentation, co-morbid conditions, nephrology consult, and required intensity of treatment, a hospitalization exceeding two midnights is anticipated. Coding Level of Care Code Acute Code for [facility] Fwd Diagnoses DEONNA (acute kidney injury) N17.9 Pyelonephritis N12 Hypokalemia E87.6 Mixed hyperlipidemia E78.2 Diabetes E11.9 Hypertension I10 H/O aortic valve replacement Z95.2 ASHD (arteriosclerotic heart disease) I25.10
[2025-08-31 12:57] LABS: Estmated Average Glucose 146; Hemoglobin A1C 6.7 % (4.0-6.0)
[2025-08-31 14:11] LABS: Uric Acid 6.5 mg/dL (3.4-7.0)
[2025-08-31 15:34] LABS: Potassium, Radom Urine 30 mmol/L; Urine Random Chloride 51 mmol/L; Urine Random Sodium 55 mmol/L
[2025-08-31 16:16] LABS: NT Pro B Type Natriuretic Pept 22306 pg/mL (0-125)
[2025-08-31] MEDS: albumin 25 G/100 ML BAG 60 G IV ×2 (17:38→23:34)
[2025-08-31] MEDS: ATORVASTATIN 20 MG TABLET PO (21:04)
[2025-08-31] MEDS: ondansetron 2 mg/ML SDV 2 mL 4 MG IVP (23:19)
[2025-09-01] VITALS (11 sets, daily range): BP systolic 158–198; BP diastolic 67–89; PULSE 66–72; RESP 16–18; TEMP 36.3–36.8; O2SAT 93–97; BMI 28.9
[2025-09-01 03:56] LABS: Hematocrit 31.9 % (37-53); Hemoglobin 10.20 g/dL (11.27-16.99); Mean Corpuscular HGB Conc 32.0 g/dL (30-55); Mean Corpuscular Hemoglobin 28.9 pg (27-33); Mean Corpuscular Volume 90.4 fl (82-101); Nucleated Red Blood Cells % 0 %; Platelet Count 127 10^3/cmm (157-399); Red Blood Count 3.53 10^6/uL (3.85-5.65); White Blood Count 6.26 10^3/uL (3.29-11.43)
[2025-09-01 04:11] LABS: Alanine Aminotransferase 12 U/L (0-41); Albumin Level 3.6 g/dL (3.5-5.2); Alkaline Phosphatase 127 U/L (40-130); Anion Gap 21.3 (5-19); Aspartate Amino Transferase 19 U/L (0-40); Blood Urea Nitrogen 50 mg/dL (8-23); Calcium 8.0 mg/dL (8.5-10.5); Carbon Dioxide 18 mmol/L (22-29); Chloride 103 mmol/L (98-107); Cholesterol 81 mg/dL (0-200); Ferritin 427 ng/mL (30-400); Globulin 3.3 g/dL (1.3-4.6); Glucose 140 mg/dL (65-115); HDL Cholesterol 22 mg/dL (60-100); Iron 30 ug/dL (59-158); Magnesium 1.8 mg/dL (1.7-2.3); Osmolality Calculated 304 mOsm/kg (285-295); Potassium 3.3 mmol/L (3.5-5.1); Sodium 139 mmol/L (136-145); Total Iron Binding Capacity 184 mcg/dl; Total Protein 6.9 g/dL (6.6-8.7); Triglycerides 106 mg/dL (0-150); Unsaturated Iron Binding 154 ug/dL (112-347)
[2025-09-01 04:16] LABS: Calcium 8.0 mg/dL (8.5-10.5)
[2025-09-01] MEDS: albumin 25 G/100 ML BAG 60 G IV ×2 (08:41→16:41)
--- NOTE | 2025-09-01 10:01 | P.PN_ITS ---
Subjective 2 Subjective: Complains of diarrhea. Has leg edema no other complaints wants to go home no nausea vomiting shortness of breath chest pain headaches itching or cramps. Medications: Reviewed: Yes Medication Review Details: Current Medications Acetaminophen (Acetaminophen 325 Mg Tablet) 650 mg PO Q6H PRN PRN Reason: Mild/Mod Pain Or Temp >/= 101 Atenolol (Atenolol 50 Mg Tablet) 50 mg PO DAILY [facility] Last Admin: 09/01/25 04:53 Dose: 50 mg Atorvastatin Calcium (Atorvastatin 20 Mg Tablet) 20 mg PO BEDTIME [facility] Last Admin: 08/31/25 21:04 Dose: 20 mg Bisacodyl (Bisacodyl 5 Mg Tablet) 10 mg PO DAILY PRN; Protocol PRN Reason: Constipation (see protocol) Glucagon (Glucagon 1 Mg/Ml Kit 1 Ml) 1 mg IM ONCE PRN; Protocol PRN Reason: Adult Acute Hypoglycemia Nursing Prot. Ciprofloxacin/Dextrose (Cipro) 400 mg in 200 mls @ 200 mls/hr IV Q24H [facility]; Protocol Last Infusion: 08/31/25 17:45 Dose: Infused Dextrose (D5w) 500 mls @ 0 mls/hr IV ONCE PRN; Protocol PRN Reason: Adult Acute Hypoglycemia Prot Dextrose (D10w) 125 mls @ 750 mls/hr IV PRN PRN; Protocol PRN Reason: Adult Acute Hypoglycemia Nursing Protocol Dextrose (D10w) 250 mls @ 1,000 mls/hr IV PRN PRN; Protocol PRN Reason: Adult Acute Hypoglycemia Nursing Protocol Albumin Human (Albumin) 25 g in 100 mls @ 60 mls/hr IV Q8H [facility] Last Admin: 09/01/25 08:41 Dose: 60 mls/hr Insulin Human Lispro (Insulin Lispro 100 Unit/1 Ml) 0 unit SUBCUT WM&BEDTIME [facility]; Protocol Last Admin: 09/01/25 07:41 Dose: Not Given Isosorbide Mononitrate (Isosorbide Mononitrate Er 30 Mg Tablet) 60 mg PO QAM [facility] Last Admin: 09/01/25 04:52 Dose: 60 mg Nicotine (Nicotine 21 Mg Patch) 1 patch TRANSDERMA DAILY [facility] Last Admin: 08/31/25 23:50 Dose: 1 patch Ondansetron HCl (Ondansetron 2 Mg/Ml Sdv 2 Ml) 4 mg IVP Q8H PRN PRN Reason: vomiting, or N/V if npo Last Admin: 08/31/25 23:19 Dose: 4 mg Vitals/I&O/Wt Last Vital Signs Temp 97.4 F L 09/01/25 08:07 Pulse 66 09/01/25 08:07 Resp 16 09/01/25 08:07 BP 189/81 09/01/25 08:07 Pulse Ox 95 09/01/25 08:07 O2 Del Method Room Air 09/01/25 04:00 08/31/25 09/01/25 09/01/25 22:59 06:59 14:59 Intake Total 860 / 860 640 / 1500 240 / 240 Output Total 900 / 900 625 / 1525 Balance -40 / -40 240 / 240 Weight last 48 hrs Weight 110.677 kg Weight 109.571 kg Weight 104.326 kg Physical Exam 2 Narrative: Patient is comfortable no apparent distress vital signs noted blood pressure elevated. He is not using any oxygen. HEENT normocephalic atraumatic. Neck is supple no JVP no carotid bruits lungs clear. Heart is regular, plus S1-S2 Abdomen is soft positive bowel sounds. Extremities have 2+ bilateral edema neurologically awake alert oriented x 3. No asterixis Data 09/01/25 03:39 09/01/25 03:39 A&P Assessment and plan 1. DEONNA (acute kidney injury): 75-year-old man with diabetes, hypertension, aortic valve replacement, COPD, permanent pacemaker 1. Acute kidney injury CT scan reviewed right kidney and left kidney are normal size with perinephric stranding. He has no hydronephrosis. Of note his urine is red he has 3+ protein 2+ glucose 3+ blood urine RBCs greater than 100, 11-20 white cells. I am concerned that the patient had obstruction that may have been caused by a stone that could have caused acute kidney injury as he was having back pain however the patient does not have any obstruction at this time and he states he is urinating well which makes obstruction less likely. The patient has a good blood pressure and does not appear to be prerenal. Renal function hopefully plateauing. Potassium is 3.3 will replace. Elevated BNP 22,000. Patient has increased anion gap metabolic acidosis will monitor. Will give a dose of furosemide. Urinalysis red 3+ protein 2+ glucose 3+ blood over 100 RBCs, 11-20 white cells Urine sodium 55 potassium 30 chloride 51. Urine microalbumin creatinine ratio 3278 Albumin 3.6 he is not nephrotic and LDL is low at 38. Awaiting SPEP and serologies Hepatitis B studies negative hepatitis C negative antistreptolysin antibody pending Please hold Jardiance and losartan. Continue to monitor for renal recovery evaluation in progress. Patient is nonoliguric. CT scan without any hydronephrosis kidneys have perinephric stranding. 2. Anemia iron saturation 16% ferritin 427 Hemoglobin 10.2 platelets continue to decrease 127, bilirubin normal unlikely to be hemolytic anemia 3. Replace vitamin D Monitor PTH of 220 Further intervention will depend on repeat chemistries results of blood work and urine output Plan: See above. PDMP PDMP Reviewed: Not Reviewed Attestations 2 Medical Necessity Statement*: Acute kidney injury Time Spent in Patient Care: Greater than 35 minutes (>than 50% of time spent in counselling and/or direct pt care on unit) . Coding Level of Care Code Acute Code for [facility] Diagnoses DEONNA (acute kidney injury) N17.9
[2025-09-01] MEDS: guaiFENesin-dextromethorphan UDC 10 mL PO ×2 (12:28→20:26)
[2025-09-01] MEDS: FUROsemide 10 mg/mL SDV 4mL 40 MG IVP (12:28)
[2025-09-01] MEDS: ferric gluconate 125 MG in sodium chloride 0.9% (100 ml) 100 ML 110 MG IV (12:29)
--- NOTE | 2025-09-01 17:40 | P.PN_ITS ---
Subjective 2 Subjective: She is overall feeling better asking about going home. Discussed with family not ready to return home yet due to significant acute kidney injury, creatinine on improved and slightly worsened today up to 7, BUN 50, with concomitant pyelonephritis as well as hematuria requires further hospitalization and management. He verbalized understanding and agreement. Tells me that hematuria has been clearing up. Denies any difficulty urinating or signs of urine retention. Discussed with him to let us know in case of retention verbalized he will. Request to go smoking, discussed cannot smoke on hospital property. Offered nicotine patch, lozenges, he declines, states that they do not work for him. Discussed to let us know in case he changes his mind. Vitals/I&O/Wt Last Vital Signs Temp 97.6 F 09/01/25 16:52 Pulse 66 09/01/25 16:52 Resp 17 09/01/25 16:52 BP 198/88 09/01/25 16:52 Pulse Ox 97 09/01/25 16:52 O2 Del Method Room Air 09/01/25 04:00 09/01/25 09/01/25 09/01/25 06:59 14:59 22:59 Intake Total 640 / 1500 580 / 580 Output Total 625 / 1525 400 / 400 Balance 180 / 180 Weight last 48 hrs Weight 110.677 kg Weight 109.571 kg Weight 104.326 kg Physical Exam 2 Const: COMMON NORMALS: patient oriented x3 and alert GENERAL APPEARANCE: c ooperative ORIENTATION/CONSCIOUSNESS: Yes awake HENMT: COMMON NORMALS: oropharynx normal Neck/C-Spine: COMMON NORMALS: no JVD Resp: COMMON NORMALS: normal respiratory effort and clear to auscultation bilaterally AUSCULTATION: clear to auscultation bilaterally Cardio: COMMON NORMALS: no JVD, regular rhythm, S1 normal heart sound present, S2 normal heart sound present and No murmurs present (Cardio) RHYTHM: regular rhythm HEART SOUNDS: S1 normal heart sound present and S2 normal heart sound present GI: COMMON NORMALS: Normal to inspection, nondistended, normoactive bowel sounds present, Soft to palpation and non-tender PALPATION: Yes Soft to palpation Extremity: COMMON NORMALS: no joint enlargement and no pedal edema Neuro: COMMON NORMALS: patient oriented x3 and moves all extremities S ENSORIUM/ORIENTATION: Yes alert Skin: COMMON NORMALS: no rashes or lesions noted GENERAL SKIN EXAM: no rashes or lesions noted Data 09/01/25 03:39 09/01/25 03:39 Micro: Microbiology 08/31/25 08:06 Urine Culture - Final Urine,Clean Catch A&P Assessment and plan 1. DEONNA (acute kidney injury): 2. Pyelonephritis: 3. Hypokalemia: 4. Mixed hyperlipidemia: 5. Type 2 diabetes mellitus with hyperglycemia, without long-term current use of insulin: 6. Essential hypertension: 7. H/O aortic valve replacement: 8. ASHD (arteriosclerotic heart disease): Plan: DEONNA, Intrinsic Reviewed intake and output, producing urine. Reviewed chemistry, noted BUN up to 50 creatinine 7. Not improved so far, however, hopefully may start showing improvement. Monitor for any polyuria. Monitor for any obstructive uropathy with hematuria. He will let us know in case of any obstructive symptoms, but does state that hematuria has been clearing up. Reviewed nephrology note, appreciate consultation. Discussed with nursing and case investigator. Monitor for risk of electrolyte abnormality with improving renal function. Receiving volume challenge, received fluids and albumin. Monitor for risk of fluid overload. ? Gross hematuria POA, discussed with nursing staff, in case of [place], [place], irrigate, consider CBI. ? 08/31: Abd/Pelvis CT: Reviewed and results as follows: Mild fluid distention of the small bowel and colon consistent with a history of diarrhea. Soft tissue edema and anasarca. Very small amount of ascites in the pelvis. No renal obstruction. There is perinephric stranding which can be chronic or related to pyelonephritis. Partial colectomy. Very tiny bilateral pleural effusions. ? 08/31: Commissary Representative 6.9, BUN 44, Rani Phos 128 ? Nephrology consulted, Dr. Castellanos. Expertise and recommendations appreciated. ? Hold Jardiance and losartan ? Strict I&O's ? Avoid nephrotoxins ? Monitor renal function ? CBC, CMP, mag daily Complicated UTI Pyelonephritis Reviewed blood culture, so far negative. Reviewed urine culture. 50-60,000 mixed urogenital ifrah. Suspected stone obstruction that has since passed, patient urinating well. On empiric antibiotic with Cipro with penicillin allergy. However, if remains afebrile, without leukocytosis and continues to improve, may de-escalate antibiotic. Monitor for risk of C. difficile, tendinopathy. 08/31: UA: Urine is red he has 3+ protein 2+ glucose 3+ blood urine RBCs greater than 100, 11-20 white cells. Urine culture obtained, pending. Hypokalemia Additional cautious replacement of hyperkalemia with acute kidney dysfunction. 20 mill colons potassium requested. Repeat chemistry. 08/31: K 3.3 Continuous cardiac monitoring Supplement with potassium 20 mEq PO Recheck BMP ordered this evening DM2 A1c 6.7% Blood glucose monitoring, ACHS Low regimen sliding scale Hypoglycemic protocol Carb consistent diet Hold home medication empagliflozin due to DEONNA CAD HLD Lipid panel ordered for a.m., pending. Continue home medication simvastatin 20 mg PO dly HTN Losartan has been held. Significantly hypertensive today. Will give amlodipine. Continue home medication isosorbide mononitrate 60mg PO dly Continue home medication atenolol 50 mg PO dly Hold home medication losartan due to DEONNA Chronic anemia, hemoglobin reviewed, 10.2. Platelets normal. MCV 90.4. Noted iron deficiency. Check Hemoccult. On Plavix. ASHD AVR Placemaker placement 08/2021 Stable, Hold plavix for now CODE STATUS: Full code VTE prophylaxis: SCDs, holding due to hematuria. PDMP PDMP Reviewed: Not Reviewed Attestations 2 Medical Necessity Statement*: Continue admission for assessment and management of DEONNA, pyelonephritis with complicated UTI, electrolyte abnormality, additional comorbidities as above. and High MDM includes amount and/or complexity of data reviewed/ordered [ previous or external records, resulted lab(s)/test(s), ordered lab(s)/test(s) and other healthcare professional discussion] and described risk of complication, morbidity or mortality of management as documented Diagnoses DEONNA (acute kidney injury) N17.9 Pyelonephritis N12 Hypokalemia E87.6 Mixed hyperlipidemia E78.2 Type 2 diabetes mellitus with hyperglycemia, without long-term current use of insulin E11.65 Diabetes mellitus type: type 2 Diabetes mellitus shelter insulin use: without claim auditor use Diabetes mellitus complication status: with hyperglycemia Essential hypertension I10 Hypertension type: essential hypertension H/O aortic valve replacement Z95.2 ASHD (arteriosclerotic heart disease) I25.10
[2025-09-01] MEDS: ondansetron 2 mg/ML SDV 2 mL 4 MG IVP (20:27)
[2025-09-01] MEDS: ATORVASTATIN 20 MG TABLET PO (20:27)
[2025-09-02] VITALS (7 sets, daily range): BP systolic 148–175; BP diastolic 76–87; PULSE 61–69; RESP 18; TEMP 36.5–36.7; O2SAT 95–100; BMI 28.9
[2025-09-02] MEDS: albumin 25 G/100 ML BAG 60 G IV ×3 (00:49→17:25)
[2025-09-02] MEDS: ondansetron 2 mg/ML SDV 2 mL 4 MG IVP ×2 (03:17→14:31)
[2025-09-02 04:20] LABS: Hematocrit 30.6 % (37-53); Hemoglobin 9.90 g/dL (11.27-16.99); Mean Corpuscular HGB Conc 32.4 g/dL (30-55); Mean Corpuscular Hemoglobin 29.2 pg (27-33); Mean Corpuscular Volume 90.3 fl (82-101); Nucleated Red Blood Cells % 0 %; Platelet Count 117 10^3/cmm (157-399); Red Blood Count 3.39 10^6/uL (3.85-5.65); White Blood Count 5.72 10^3/uL (3.29-11.43)
[2025-09-02 04:41] LABS: Alanine Aminotransferase 14 U/L (0-41); Albumin Level 4.2 g/dL (3.5-5.2); Alkaline Phosphatase 121 U/L (40-130); Anion Gap 22.2 (5-19); Aspartate Amino Transferase 22 U/L (0-40); Blood Urea Nitrogen 49 mg/dL (8-23); Calcium 8.1 mg/dL (8.5-10.5); Carbon Dioxide 20 mmol/L (22-29); Chloride 100 mmol/L (98-107); Globulin 3.0 g/dL (1.3-4.6); Glucose 171 mg/dL (65-115); Magnesium 1.8 mg/dL (1.7-2.3); Osmolality Calculated 305 mOsm/kg (285-295); Potassium 3.2 mmol/L (3.5-5.1); Sodium 139 mmol/L (136-145); Total Protein 7.2 g/dL (6.6-8.7)
[2025-09-02 08:15] LABS: PROTEIN, TOTAL 6.7 g/dL (6.1-8.1)
[2025-09-02] MEDS: insulin glargine 100 units/1 mL 30 UNIT SUBCUT (08:20)
--- NOTE | 2025-09-02 09:54 | PM.PN ---
Subjective Subjective: Patient was seen and examined. The patient states he feels well he still has edema denies nausea vomiting shortness of breath chest pain hematuria or any pain. Denies diarrhea denies difficulty urinating. He is concerned that he is not able to smoke. Medications: Reviewed: Yes Medication Review Details: Current Medications Acetaminophen (Acetaminophen 325 Mg Tablet) 650 mg PO Q6H PRN PRN Reason: Mild/Mod Pain Or Temp >/= 101 Last Admin: 09/01/25 21:46 Dose: 650 mg Amlodipine Besylate (Amlodipine 5 Mg Tablet) 5 mg PO DAILY [facility] Last Admin: 09/02/25 05:55 Dose: 5 mg Atenolol (Atenolol 50 Mg Tablet) 50 mg PO DAILY [facility] Last Admin: 09/02/25 05:56 Dose: 50 mg Atorvastatin Calcium (Atorvastatin 20 Mg Tablet) 20 mg PO BEDTIME [facility] Last Admin: 09/01/25 20:27 Dose: 20 mg Bisacodyl (Bisacodyl 5 Mg Tablet) 10 mg PO DAILY PRN; Protocol PRN Reason: Constipation (see protocol) Ergocalciferol (Ergocalciferol (Vitamin D2) 50,000 Unit Capsule) 50,000 unit PO Q7D [facility] Last Admin: 09/01/25 12:30 Dose: 50,000 unit Glucagon (Glucagon 1 Mg/Ml Kit 1 Ml) 1 mg IM ONCE PRN; Protocol PRN Reason: Adult Acute Hypoglycemia Nursing Prot. Guaifenesin/Dextromethorphan (Guaifenesin-Dextromethorphan Udc 10 Ml) 10 ml PO Q4H PRN PRN Reason: COUGH Last Admin: 09/01/25 20:26 Dose: 10 ml Ciprofloxacin/Dextrose (Cipro) 400 mg in 200 mls @ 200 mls/hr IV Q24H [facility]; Protocol Last Admin: 09/01/25 16:36 Dose: 200 mls/hr Dextrose (D5w) 500 mls @ 0 mls/hr IV ONCE PRN; Protocol PRN Reason: Adult Acute Hypoglycemia Prot Dextrose (D10w) 125 mls @ 750 mls/hr IV PRN PRN; Protocol PRN Reason: Adult Acute Hypoglycemia Nursing Protocol Dextrose (D10w) 250 mls @ 1,000 mls/hr IV PRN PRN; Protocol PRN Reason: Adult Acute Hypoglycemia Nursing Protocol Albumin Human (Albumin) 25 g in 100 mls @ 60 mls/hr IV Q8H [facility] Last Admin: 09/02/25 08:09 Dose: 60 mls/hr Ferric Sodium Gluconate 125 mg (/ Sodium Chloride) 110 mls @ 110 mls/hr IV Q24H [facility] Stop: 09/03/25 11:59 Last Admin: 09/01/25 12:29 Dose: 110 mls/hr Insulin Glargine (Insulin Glargine 100 Units/1 Ml) 30 unit SUBCUT DAILY [facility] Last Admin: 09/02/25 08:20 Dose: 30 unit Insulin Human Lispro (Insulin Lispro 100 Unit/1 Ml) 0 unit SUBCUT WM&BEDTIME [facility]; Protocol Last Admin: 09/02/25 08:10 Dose: 2 unit Isosorbide Mononitrate (Isosorbide Mononitrate Er 30 Mg Tablet) 60 mg PO QAM [facility] Last Admin: 09/02/25 05:55 Dose: 60 mg Nicotine (Nicotine 21 Mg Patch) 1 patch TRANSDERMA DAILY [facility] Last Admin: 09/01/25 20:33 Dose: 1 patch Ondansetron HCl (Ondansetron 2 Mg/Ml Sdv 2 Ml) 4 mg IVP Q8H PRN PRN Reason: vomiting, or N/V if npo Last Admin: 09/02/25 03:17 Dose: 4 mg Vitals/I&O/Wt Last Vital Signs Temp 97.8 F 09/02/25 07:10 Pulse 64 09/02/25 07:10 Resp 18 09/02/25 07:10 BP 148/87 09/02/25 07:10 Pulse Ox 98 09/02/25 07:10 O2 Del Method Room Air 09/02/25 07:10 09/01/25 09/02/25 09/02/25 22:59 06:59 14:59 Intake Total 460 / 1040 460 / 1500 360 / 360 Output Total 800 / 1200 100 / 1300 Balance -340 / -160 360 / 200 360 / 360 Weight last 48 hrs Weight 110.677 kg Weight 110.677 kg Weight 109.571 kg Physical Exam Narrative: Patient is comfortable no apparent distress vital signs noted blood pressure stable He is not using any oxygen. HEENT normocephalic atraumatic. Neck is supple no JVP no carotid bruits lungs clear. Heart is regular, plus S1-S2 Abdomen is soft positive bowel sounds. Extremities have 2+ bilateral edema neurologically awake alert oriented x 3. No asterixis Data 09/02/25 02:28 09/02/25 02:28 Micro: Microbiology 08/31/25 08:06 Urine Culture - Final Urine,Clean Catch A&P Assessment and plan 1. DEONNA (acute kidney injury): 75-year-old man with diabetes, hypertension, aortic valve replacement, COPD, permanent pacemaker 1. Acute kidney injury CT scan reviewed right kidney and left kidney are normal size with perinephric stranding. He has no hydronephrosis. Of note his urine is red he has 3+ protein 2+ glucose 3+ blood urine RBCs greater than 100, 11-20 white cells. I am concerned that the patient had obstruction that may have been caused by a stone that could have caused acute kidney injury as he was having back pain however the patient does not have any obstruction at this time and he states he is urinating well which makes obstruction less likely. The patient has a good blood pressure and does not appear to be prerenal. Renal function is improving. Will continue furosemide Potassium is 3.2 will replace. Elevated BNP, will repeat Patient has increased anion gap metabolic acidosis, is stable to mildly improved Urinalysis red 3+ protein 2+ glucose 3+ blood over 100 RBCs, 11-20 white cells Urine sodium 55 potassium 30 chloride 51. Urine microalbumin creatinine ratio 3278 Albumin 4.2 he is not nephrotic and LDL is low at 38. Awaiting SPEP and serologies Hepatitis B studies negative hepatitis C negative antistreptolysin antibody pending Please hold Jardiance and losartan. Continue to monitor for renal recovery. Patient is nonoliguric. CT scan without any hydronephrosis kidneys have perinephric stranding. 2. Anemia iron saturation 16% ferritin 427 Hemoglobin 10.2 platelets continue to decrease 127, bilirubin normal unlikely to be hemolytic anemia 3. Replace vitamin D Monitor PTH of 220 Blood pressure acceptable. Hopefully kidney function continues to improve. Further intervention will depend on repeat chemistries results of blood work and urine output Plan: See above. PDMP PDMP Reviewed: Not Reviewed Attestations Medical Necessity Statement*: Acute kidney injury and hypokalemia Time Spent in Patient Care: 16 - 35 minutes (>than 50% of time spent in counselling and/or direct pt care on unit). Coding Level of Care Code Acute Code for Chg Fwd Diagnoses DEONNA (acute kidney injury) N17.9
[2025-09-02] MEDS: FUROsemide 10 mg/mL SDV 10mL 60 MG IVP (11:23)
[2025-09-02] MEDS: ferric gluconate 125 MG in sodium chloride 0.9% (100 ml) 100 ML 110 MG IV (11:24)
--- NOTE | 2025-09-02 12:48 | PM.PN ---
Subjective Subjective: He reports that subjectively he is doing well. Denies pain, discomfort, nausea, any dysuria or any symptoms of urinary retention. Hematuria is clearing up. He is asking about going home. Vitals/I&O/Wt Last Vital Signs Temp 97.7 F 09/02/25 11:49 Pulse 66 09/02/25 11:49 Resp 18 09/02/25 11:49 BP 163/76 09/02/25 11:49 Pulse Ox 100 09/02/25 11:49 O2 Del Method Room Air 09/02/25 11:49 09/01/25 09/02/25 09/02/25 22:59 06:59 14:59 Intake Total 460 / 1150 460 / 1610 360 / 360 Output Total 800 / 1200 100 / 1300 Balance -340 / -50 360 / 310 360 / 360 Weight last 48 hrs Weight 110.677 kg Weight 110.677 kg Physical Exam Const: COMMON NORMALS: patient oriented x3 and alert GENERAL APPEARANCE: cooperative ORIENTATION/CONSCIOUSNESS: Yes awake HENMT: COMMON NORMALS: oropharynx normal Neck/C-Spine: COMMON NORMALS: no JVD Resp: COMMON NORMALS: normal respiratory effort and clear to auscultation bilaterally AUSCULTATION: clear to auscultation bilaterally Cardio: COMMON NORMALS: no JVD, regular rhythm, S1 normal heart sound present, S2 normal heart sound present and No murmurs present (Cardio) RHYTHM: regular rhythm HEART SOUNDS: S1 normal heart sound present and S2 normal heart sound present GI: COMMON NORMALS: Normal to inspection, nondistended, normoactive bowel sounds present, Soft to palpation and non-tender PALPATION: Yes Soft to palpation Extremity: COMMON NORMALS: no joint enlargement and no pedal edema Neuro: COMMON NORMALS: patient oriented x3 and moves all extremities SENSORIUM/ORIENTATION: Yes alert Skin: COMMON NORMALS: no rashes or lesions noted GENERAL SKIN EXAM: no rashes or lesions noted Data 09/02/25 02:28 09/02/25 02:28 Micro: Microbiology 08/31/25 08:06 Urine Culture - Final Urine,Clean Catch A&P Assessment and plan 1. DEONNA (acute kidney injury): 2. Pyelonephritis: 3. Hypokalemia: 4. Mixed hyperlipidemia: 5. Type 2 diabetes mellitus with hyperglycemia, without long-term current use of insulin: 6. Essential hypertension: 7. H/O aortic valve replacement: 8. ASHD (arteriosclerotic heart disease): Plan: DEONNA, Intrinsic Reviewed vitals, CBC, CMP, magnesium, Phos, nephrology note. Noted renal dysfunction appears to have plateaued, creatinine 6.1 with some improvement. Yesterday, BUN 49. Phos without further rise 5.7. Potassium mildly low 3.2, requested replacement. Discussed with him recommendation for additional monitoring of continued renal recovery, urine output, electrolytes. He is willing to stay until tomorrow. Does state hematuria is clearing up, denies any symptoms of retention. Will benefit from follow-up with urology. Reviewed intake and output, producing urine. Reviewed chemistry, noted BUN up to 50 creatinine 7. Not improved so far, however, hopefully may start showing improvement. Monitor for any polyuria. Monitor for any obstructive uropathy with hematuria. He will let us know in case of any obstructive symptoms, but does state that hematuria has been clearing up. Reviewed nephrology note, appreciate consultation. Discussed with nursing and machine adjuster leader case trim. Monitor for risk of electrolyte abnormality with improving renal function. Receiving volume challenge, received fluids and albumin. Monitor for risk of fluid overload. ? Gross hematuria POA, discussed with nursing staff, in case of [place], [place], irrigate, consider CBI. ? 08/31: Abd/Pelvis CT: Reviewed and results as follows: Mild fluid distention of the small bowel and colon consistent with a history of diarrhea. Soft tissue edema and anasarca. Very small amount of ascites in the pelvis. No renal obstruction. There is perinephric stranding which can be chronic or related to pyelonephritis. Partial colectomy. Very tiny bilateral pleural effusions. ? 08/31: Active Directory Specialist 6.9, BUN 44, Rani Phos 128 ? Nephrology consulted, Dr. Castellanos. Expertise and recommendations appreciated. ? Hold Jardiance and losartan ? Strict I&O's ? Avoid nephrotoxins ? Monitor renal function ? CBC, CMP, mag daily Complicated UTI Pyelonephritis Afebrile, without leukocytosis, urine culture on review with 50-60,000 mixed urogenital ifrah. Will go ahead and stop antibiotic. Reassess. Reviewed blood culture, so far negative. Suspected stone obstruction that has since passed, patient urinating well. On empiric antibiotic with Cipro with penicillin allergy. However, if remains afebrile, without leukocytosis and continues to improve, may de-escalate antibiotic. Monitor for risk of C. difficile, tendinopathy. Hypokalemia Reviewed potassium, 3.2, replace additional small dose potassium, 20 mill equivalents, reassess chemistry. Additional cautious replacement of hyperkalemia with acute kidney dysfunction. 20 m-equivalents potassium requested. Repeat chemistry. Continuous cardiac monitoring Supplement with potassium 20 mEq PO Recheck BMP DM2 Resumed Lantus. A1c 6.7% Blood glucose monitoring, ACHS Low regimen sliding scale Hypoglycemic protocol Carb consistent diet Hold home medication empagliflozin due to DEONNA CAD HLD Lipid panel ordered for a.m., pending. Continue home medication simvastatin 20 mg PO dly HTN Losartan has been held. Significantly hypertensive today. In previous amlodipine dose to 10 mg. Continue home medication isosorbide mononitrate 60mg PO dly Continue home medication atenolol 50 mg PO dly Hold home medication losartan due to DEONNA Chronic anemia, hemoglobin reviewed, 0.9. Platelets with mild thrombocytopenia 117. MCV 90.3. Noted iron deficiency. Check Hemoccult -ordered, uncollected. On Plavix. ASHD AVR Placemaker placement 08/2021 Stable, Hold plavix for now CODE STATUS: Full code VTE prophylaxis: SCDs, holding due to hematuria. PDMP PDMP Reviewed: Not Reviewed Attestations Medical Necessity Statement*: Continue admission for assessment and management of DEONNA, pyelonephritis with complicated UTI, electrolyte abnormality, additional comorbidities as above. and High MDM includes amount and/or complexity of data reviewed/ordered [ previous or external records, resulted lab(s)/test(s), ordered lab(s)/test(s) and other healthcare professional discussion] and described risk of complication, morbidity or mortality of management as documented Diagnoses DEONNA (acute kidney injury) N17.9 Pyelonephritis N12 Hypokalemia E87.6 Mixed hyperlipidemia E78.2 Type 2 diabetes mellitus with hyperglycemia, without long-term current use of insulin E11.65 Diabetes mellitus type: type 2 Diabetes mellitus residential insulin use: without it solutions sales consultant use Diabetes mellitus complication status: with hyperglycemia Essential hypertension I10 Hypertension type: essential hypertension H/O aortic valve replacement Z95.2 ASHD (arteriosclerotic heart disease) I25.10
[2025-09-02] MEDS: guaiFENesin-dextromethorphan UDC 10 mL PO (14:31)
[2025-09-02] MEDS: ATORVASTATIN 20 MG TABLET PO (20:19)
[2025-09-03] VITALS (9 sets, daily range): BP systolic 119–167; BP diastolic 70–97; PULSE 59–70; RESP 17–18; TEMP 36.4–36.7; O2SAT 95–97; BMI 28.9
[2025-09-03] MEDS: albumin 25 G/100 ML BAG 60 G IV ×4 (01:18→22:00)
[2025-09-03] MEDS: insulin glargine 100 units/1 mL 30 UNIT SUBCUT (04:46)
[2025-09-03 06:03] LABS: Hematocrit 32.1 % (37-53); Hemoglobin 10.20 g/dL (11.27-16.99); Mean Corpuscular HGB Conc 31.8 g/dL (30-55); Mean Corpuscular Hemoglobin 28.7 pg (27-33); Mean Corpuscular Volume 90.2 fl (82-101); Nucleated Red Blood Cells % 0 %; Platelet Count 123 10^3/cmm (157-399); Red Blood Count 3.56 10^6/uL (3.85-5.65); White Blood Count 5.96 10^3/uL (3.29-11.43)
[2025-09-03 06:16] LABS: Alanine Aminotransferase 16 U/L (0-41); Albumin Level 4.4 g/dL (3.5-5.2); Alkaline Phosphatase 110 U/L (40-130); Anion Gap 19.5 (5-19); Aspartate Amino Transferase 20 U/L (0-40); Blood Urea Nitrogen 53 mg/dL (8-23); Calcium 8.4 mg/dL (8.5-10.5); Carbon Dioxide 21 mmol/L (22-29); Chloride 102 mmol/L (98-107); Globulin 3.0 g/dL (1.3-4.6); Glucose 95 mg/dL (65-115); Magnesium 1.8 mg/dL (1.7-2.3); Osmolality Calculated 302 mOsm/kg (285-295); Potassium 3.5 mmol/L (3.5-5.1); Sodium 139 mmol/L (136-145); Total Protein 7.4 g/dL (6.6-8.7)
--- NOTE | 2025-09-03 10:35 | PM.PN ---
Subjective Subjective: Patient was seen and examined. Rising creatinine. Patient is more swollen. Patient denies any other complaints no nausea vomiting shortness of breath chest pain headaches itching or cramps. No diarrhea. Medications: Reviewed: Yes Medication Review Details: Current Medications Acetaminophen (Acetaminophen 325 Mg Tablet) 650 mg PO Q6H PRN PRN Reason: Mild/Mod Pain Or Temp >/= 101 Last Admin: 09/02/25 17:24 Dose: 650 mg Amlodipine Besylate (Amlodipine 5 Mg Tablet) 10 mg PO DAILY [facility] Last Admin: 09/03/25 04:47 Dose: 10 mg Atenolol (Atenolol 50 Mg Tablet) 50 mg PO DAILY [facility] Last Admin: 09/03/25 04:47 Dose: 50 mg Atorvastatin Calcium (Atorvastatin 20 Mg Tablet) 20 mg PO BEDTIME [facility] Last Admin: 09/02/25 20:19 Dose: 20 mg Bisacodyl (Bisacodyl 5 Mg Tablet) 10 mg PO DAILY PRN; Protocol PRN Reason: Constipation (see protocol) Ergocalciferol (Ergocalciferol (Vitamin D2) 50,000 Unit Capsule) 50,000 unit PO Q7D [facility] Last Admin: 09/01/25 12:30 Dose: 50,000 unit Glucagon (Glucagon 1 Mg/Ml Kit 1 Ml) 1 mg IM ONCE PRN; Protocol PRN Reason: Adult Acute Hypoglycemia Nursing Prot. Guaifenesin/Dextromethorphan (Guaifenesin-Dextromethorphan Udc 10 Ml) 10 ml PO Q4H PRN PRN Reason: COUGH Last Admin: 09/02/25 14:31 Dose: 10 ml Dextrose (D5w) 500 mls @ 0 mls/hr IV ONCE PRN; Protocol PRN Reason: Adult Acute Hypoglycemia Prot Dextrose (D10w) 125 mls @ 750 mls/hr IV PRN PRN; Protocol PRN Reason: Adult Acute Hypoglycemia Nursing Protocol Dextrose (D10w) 250 mls @ 1,000 mls/hr IV PRN PRN; Protocol PRN Reason: Adult Acute Hypoglycemia Nursing Protocol Albumin Human (Albumin) 25 g in 100 mls @ 60 mls/hr IV Q8H [facility] Last Admin: 09/03/25 08:23 Dose: 60 mls/hr Ferric Sodium Gluconate 125 mg (/ Sodium Chloride) 110 mls @ 110 mls/hr IV Q24H [facility] Stop: 09/03/25 11:59 Last Admin: 09/02/25 11:24 Dose: 110 mls/hr Insulin Glargine (Insulin Glargine 100 Units/1 Ml) 30 unit SUBCUT DAILY [facility] Last Admin: 09/03/25 04:46 Dose: 30 unit Insulin Human Lispro (Insulin Lispro 100 Unit/1 Ml) 0 unit SUBCUT WM&BEDTIME [facility]; Protocol Last Admin: 09/03/25 07:15 Dose: Not Given Isosorbide Mononitrate (Isosorbide Mononitrate Er 30 Mg Tablet) 60 mg PO QAM [facility] Last Admin: 09/03/25 04:47 Dose: 60 mg Nicotine (Nicotine 21 Mg Patch) 1 patch TRANSDERMA DAILY [facility] Last Admin: 09/03/25 04:47 Dose: Not Given Nicotine Polacrilex (Nicotine 4 Mg Lozenge) 4 mg MUCOUS MEM Q4H PRN PRN Reason: NICOTINE CRAVINGS Last Admin: 09/02/25 17:34 Dose: 4 mg Ondansetron HCl (Ondansetron 2 Mg/Ml Sdv 2 Ml) 4 mg IVP Q8H PRN PRN Reason: vomiting, or N/V if npo Last Admin: 09/02/25 14:31 Dose: 4 mg Vitals/I&O/Wt Last Vital Signs Temp 97.6 F 09/03/25 08:00 Pulse 61 09/03/25 08:00 Resp 18 09/03/25 08:00 BP 156/77 09/03/25 08:00 Pulse Ox 96 09/03/25 08:00 O2 Del Method Room Air 09/03/25 08:00 09/02/25 09/03/25 09/03/25 22:59 06:59 14:59 Intake Total 460 / 1400 300 / 1700 600 / 600 Output Total 400 / 850 Balance 60 / 550 300 / 850 600 / 600 Weight last 48 hrs Weight 110.677 kg Weight 110.677 kg Physical Exam Narrative: Patient is comfortable no apparent distress vital signs noted He is not using any oxygen. HEENT normocephalic atraumatic. Neck is supple no JVP no carotid bruits lungs clear. Heart is regular, plus S1-S2 Abdomen is soft positive bowel sounds. Extremities have 2+ bilateral edema neurologically awake alert oriented x 3. No asterixis Data 09/03/25 04:55 09/03/25 04:55 Micro: Microbiology 09/02/25 12:42 Occult Blood (FIT) - Final Stool Routine Collection A&P Assessment and plan 1. DEONNA (acute kidney injury): 75-year-old man with diabetes, hypertension, aortic valve replacement, COPD, permanent pacemaker 1. Acute kidney injury CT scan reviewed right kidney and left kidney are normal size with perinephric stranding. He has no hydronephrosis. Of note his urine is red he has 3+ protein 2+ glucose 3+ blood urine RBCs greater than 100, 11-20 white cells. I am concerned that the patient had obstruction that may have been caused by a stone that could have caused acute kidney injury as he was having back pain however the patient does not have any obstruction at this time and he states he is urinating well which makes obstruction less likely. The patient has a good blood pressure and does not appear to be prerenal. Renal function was improving. The patient did receive furosemide which could have caused his creatinine to rise. Today will monitor off of diuretics. We are still awaiting serologies. The patient has underlying diabetes. The patient does have a urine microalbumin creatinine ratio of 3278. His urinalysis has blood and protein if renal function does not improve would recommend a renal biopsy. Potassium is 3.5-will gently replace potassium Urine sodium 55 potassium 30 chloride 51. Urine microalbumin creatinine ratio 3278 Albumin 4.2 he is not nephrotic and LDL is low at 38. Awaiting SPEP and serologies Hepatitis B studies negative hepatitis C negative antistreptolysin antibody pending Please hold Jardiance and losartan. Continue to monitor for renal recovery. Patient is nonoliguric. CT scan without any hydronephrosis kidneys have perinephric stranding. 2. Anemia iron saturation 16% ferritin 427 Hemoglobin 10.2 platelets continue to decrease 127, bilirubin normal unlikely to be hemolytic anemia 3. Replace vitamin D Monitor PTH of 220 Blood pressure mildly elevated Further intervention will depend on repeat chemistries results of blood work and urine output Plan: See above. PDMP PDMP Reviewed: Not Reviewed Attestations Medical Necessity Statement*: deonna Time Spent in Patient Care: Greater than 35 minutes (>than 50% of time spent in counselling and/or direct pt care on unit). Coding Level of Care Code Acute Code for Chg Fwd Diagnoses DEONNA (acute kidney injury) N17.9
[2025-09-03] MEDS: ferric gluconate 125 MG in sodium chloride 0.9% (100 ml) 100 ML 110 MG IV (12:01)
[2025-09-03 13:04] LABS: KAPPA LIGHT CHAIN, FREE, SERUM 163.6 mg/L (3.3-19.4); KAPPA/LAMBDA LIGHT CHAINS FREE 1.51 (0.26-1.65); LAMBDA LIGHT CHAIN, FREE, SERU 108.7 mg/L (5.7-26.3)
--- NOTE | 2025-09-03 14:01 | P.PN_ITS ---
Subjective 2 Subjective: She denies any additional change in symptoms. Per discussion with nursing staff still having hematuria. Vitals/I&O/Wt Last Vital Signs Temp 97.7 F 09/03/25 12:00 Pulse 66 09/03/25 12:00 Resp 18 09/03/25 12:00 BP 119/70 09/03/25 12:00 Pulse Ox 97 09/03/25 12:00 O2 Del Method Room Air 09/03/25 12:00 09/02/25 09/03/25 09/03/25 22:59 06:59 14:59 Intake Total 460 / 1510 300 / 1810 700 / 700 Output Total 400 / 850 300 / 300 Balance 60 / 660 300 / 960 400 / 400 Weight last 48 hrs Weight 110.677 kg Weight 110.677 kg Physical Exam 2 Narrative: Sitting up in chair. Const: COMMON NORMALS: patient oriented x3 and alert GENERAL APPEARANCE: c ooperative ORIENTATION/CONSCIOUSNESS: Yes awake HENMT: COMMON NORMALS: oropharynx normal Neck/C-Spine: COMMON NORMALS: no JVD Resp: COMMON NORMALS: normal respiratory effort and clear to auscultation bilaterally AUSCULTATION: clear to auscultation bilaterally Cardio: COMMON NORMALS: no JVD, regular rhythm, S1 normal heart sound present, S2 normal heart sound present and No murmurs present (Cardio) RHYTHM: regular rhythm HEART SOUNDS: S1 normal heart sound present and S2 normal heart sound present GI: COMMON NORMALS: Normal to inspection, nondistended, normoactive bowel sounds present, Soft to palpation and non-tender PALPATION: Yes Soft to palpation Extremity: COMMON NORMALS: no joint enlargement and no pedal edema Neuro: COMMON NORMALS: patient oriented x3 and moves all extremities S ENSORIUM/ORIENTATION: Yes alert Skin: COMMON NORMALS: no rashes or lesions noted GENERAL SKIN EXAM: no rashes or lesions noted Data 09/03/25 04:55 09/03/25 04:55 Micro: Microbiology 09/02/25 12:42 Occult Blood (FIT) - Final Stool Routine Collection A&P Assessment and plan 1. DEONNA (acute kidney injury): 2. Pyelonephritis: 3. Hypokalemia: 4. Mixed hyperlipidemia: 5. Type 2 diabetes mellitus with hyperglycemia, without long-term current use of insulin: 6. Essential hypertension: 7. H/O aortic valve replacement: 8. ASHD (arteriosclerotic heart disease): Plan: DEONNA, Intrinsic Reviewed lab work including CBC, CMP, magnesium, Phos, nephrology note. Discussed with caretaker grounds. Worsening creatinine today, creatinine up to 6.6. Discussed with him. Lasix held. Continues with albumin. Monitor for risk of fluid overload. Discussed with nursing and case investigator. Monitor for risk of electrolyte abnormality with improving renal function. Receiving volume challenge, received fluids and albumin. Monitor for risk of fluid overload. ? Gross hematuria POA, discussed with nursing staff, in case of persistence we may proceed with three-way catheter and CBI. ? 08/31: Abd/Pelvis CT: Reviewed and results as follows: Mild fluid distention of the small bowel and colon consistent with a history of diarrhea. Soft tissue edema and anasarca. Very small amount of ascites in the pelvis. No renal obstruction. There is perinephric stranding which can be chronic or related to pyelonephritis. Partial colectomy. Very tiny bilateral pleural effusions. ? 08/31: Food Stand Manager 6.9, BUN 44, Rani Phos 128 ? Nephrology consulted, Dr. Castellanos. Expertise and recommendations appreciated. ? Hold Jardiance and losartan ? Strict I&O's ? Avoid nephrotoxins ? Monitor renal function ? CBC, CMP, mag daily Complicated UTI Pyelonephritis Gentamicin, tetracycline, tobramycin, Unasyn. With persistent hematuria we will restart treatment as likely did not respond to the quinolone, start with aztreonam. Reviewed blood culture, so far negative. Suspected stone obstruction that has since passed, patient urinating well. Hypokalemia Reviewed potassium, 3.5, replace additional small dose potassium, 20 mill equivalents, reassess chemistry. Additional cautious replacement of hyperkalemia with acute kidney dysfunction. 20 m-equivalents potassium requested. Repeat chemistry. Continuous cardiac monitoring Supplement with potassium 20 mEq PO Recheck BMP DM2 Resumed Lantus. A1c 6.7% Blood glucose monitoring, ACHS Low regimen sliding scale Hypoglycemic protocol Carb consistent diet Hold home medication empagliflozin due to DEONNA CAD HLD Lipid panel ordered for a.m., pending. Continue home medication simvastatin 20 mg PO dly HTN Losartan has been held. Continue amlodipine 10 mg. Continue home medication isosorbide mononitrate 60mg PO dly Continue home medication atenolol 50 mg PO dly Hold home medication losartan due to DEONNA Chronic anemia, hemoglobin reviewed, 0.9. Platelets with mild thrombocytopenia 117. MCV 90.3. Noted iron deficiency. Check Hemoccult -reviewed, negative. On Plavix. ASHD AVR Placemaker placement 08/2021 Stable, Hold plavix for now CODE STATUS: Full code VTE prophylaxis: SCDs, holding due to hematuria. PDMP PDMP Reviewed: Not Reviewed Attestations 2 Medical Necessity Statement*: Continue admission for assessment and management of DEONNA, pyelonephritis with complicated UTI, electrolyte abnormality, additional comorbidities as above. 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
--- NOTE | 2025-09-03 14:54 | PC.SOCIAL ---
*IMM Updated* Patient received copy of Important Message from Medicare, Copy Initialed, dated and placed in chart.
[2025-09-03 15:24] LABS: Glomerular Bsmt Membrane IGG <1.0 AI
[2025-09-03 15:33] LABS: Anti-Double Strand DNA AB <1 IU/mL
[2025-09-03 19:38] LABS: ALPHA 1 GLOBULIN 0.5 g/dL (0.2-0.3); ALPHA 2 GLOBULIN 0.8 g/dL (0.5-0.9); BETA 1 GLOBULIN 0.4 g/dL (0.4-0.6); BETA 2 GLOBULIN 0.3 g/dL (0.2-0.5)
[2025-09-03] MEDS: aztreonam 1,000 MG in sodium chloride 0.9% (plus) 50 ML 100 MG IV (21:07)
[2025-09-03] MEDS: ATORVASTATIN 20 MG TABLET PO (21:08)
[2025-09-04] VITALS (9 sets, daily range): BP systolic 136–179; BP diastolic 68–83; PULSE 58–72; RESP 16–18; TEMP 36.3–36.6; O2SAT 64–100
[2025-09-04 05:58] LABS: Magnesium 1.7 mg/dL (1.7-2.3)
[2025-09-04 05:59] LABS: Alanine Aminotransferase 17 U/L (0-41); Albumin Level 4.1 g/dL (3.5-5.2); Alkaline Phosphatase 132 U/L (40-130); Aspartate Amino Transferase 19 U/L (0-40); Blood Urea Nitrogen 59 mg/dL (8-23); Calcium 7.7 mg/dL (8.5-10.5); Carbon Dioxide 18 mmol/L (22-29); Chloride 101 mmol/L (98-107); Globulin 2.2 g/dL (1.3-4.6); Glucose 108 mg/dL (65-115); Osmolality Calculated 301 mOsm/kg (285-295); Sodium 137 mmol/L (136-145); Total Protein 6.3 g/dL (6.6-8.7)
[2025-09-04 06:15] LABS: Anion Gap 21.4 (5-19); Potassium 3.4 mmol/L (3.5-5.1)
[2025-09-04 08:03] LABS: Anti-Double Strand DNA AB <1 IU/mL
[2025-09-04] MEDS: albumin 25 G/100 ML BAG 60 G IV ×2 (08:17→15:32)
[2025-09-04] MEDS: insulin glargine 100 units/1 mL 30 UNIT SUBCUT (08:19)
--- NOTE | 2025-09-04 10:35 | XRR_ITS ---
PROCEDURE INFORMATION: Exam: XR Chest Exam date and time: 09/04/2025 11:59 AM Age: 75 years old Clinical indication: Other: Hematuria; Additional info: Ben, hematuria TECHNIQUE: Imaging protocol: Radiologic exam of the chest. Views: 1 view. COMPARISON: CT lung screening [id number] 05/08/2024 9:37 AM FINDINGS: Tubes, catheters and devices: Left atrial appendage occlusion device. Lungs: Lungs remain hyperinflated. Mild diffuse interstitial coarsening is slightly more pronounced compared with prior, particularly in the lung bases. Pleural spaces: Unremarkable. No pleural effusion. No pneumothorax. Heart/Mediastinum: Prosthetic aortic valve. Stable cardiomediastinal silhouette. Bones/joints: Post median sternotomy and CABG. XR/XR chest 1V portable [id number] IMPRESSION: Mild interstitial coarsening with bibasilar predominance may be related to chronic fibrotic changes. Mild edema and/or atypical infection considered less likely but not entirely excluded.
[2025-09-04] MEDS: aztreonam 1,000 MG in sodium chloride 0.9% (plus) 50 ML 100 MG IV (11:11)
[2025-09-04] MEDS: ondansetron 2 mg/ML SDV 2 mL 4 MG IVP ×2 (12:23→19:10)
[2025-09-04] MEDS: guaiFENesin-dextromethorphan UDC 10 mL PO (12:23)
--- NOTE | 2025-09-04 16:54 | P.TS_ITS ---
Transfer Summary Providers Date of Admission: 08/31/25 11:44 Date of Discharge/Transfer: 09/04/25 Attending Provider at Admission: Eric Head MD Attending Provider at Transfer: Tobias Beach Primary Care Provider: Alayna Bloom MD Transfer Plans: Anticipated date of transfer: 09/04/25 . Diagnoses at Discharge Discharge Diagnosis 1. DEONNA (acute kidney injury): 2. Pyelonephritis: 3. Hypokalemia: 4. Mixed hyperlipidemia: 5. Type 2 diabetes mellitus with hyperglycemia, without long-term current use of insulin: 6. Essential hypertension: 7. H/O aortic valve replacement: 8. ASHD (arteriosclerotic heart disease): Reason for Visit Reason for Visit blood in urian sent by pcp Brief History: Toni Riojas is a 75 year old male w/ pmhx of CAD, HTN, HLD, ASHD, aortic valve stenosis, placemaker placement, COPD, and DM2 presents to the ED today via POV after receiving phone call from PCP with c/o hematuria. Patient resting in bed on RA, no famliy noted to be at bedside. Patient denies significant pain at this time. Patient states he came to ED because his PCP has been calling him since 08/28/25 and told him to come to ED. Patient is A&Ox4, noted to be very poor historian. He reports hematuria but is unable to remember when this began- He states, I do not know, I do not look when I pee. He denies abd pain, N/V, fever, difficulty urinating, severe back pain, recent medication changes. He reports associated signs and symptoms of diarrhea, headache, shortn ess of breath with exertion, and significant bilateral lower extremity edema. Patient to be admitted to hospitalist services with nephrology consultation service for further medical management and care. While in ED a CBC, CMP, PT, INR, APTT was collected, reviewed and results as follows: WBC 6.94, Neut 4.99, RBC 3.82, Hgb 11.40, Hct 34.4, Plt 136. Na 135, K 3.3, Printed Circuit Board Designer 6.9, BUN 44, Rani Phos 128, PT 14.30, INR 1.03, APTT 31.1. Hospital Course Hospital Course With hematuria Plavix has been held since 08/31, with hematuria becoming senior administrator support in color, but persisting. He has not had any symptoms of urinary retention. CK not elevated. Empagliflozin, losartan was held, with hypotension amlodipine started instead. Renal function initially showing improvement from creatinine as high as 7 coming down to 6.1, but plateaued, and with some worsening creatinine up to 6.6 yesterday and 6.7 today. No further improvement with volume expansion. Continue treatment of possible pyelonephritis with stranding on CT, although otherwise remained without signs of infection or sepsis, afebrile, without leukocytosis. Does have a UTI with urine culture growing E. coli resistant to initial Cipro with reported penicillin allergy, switched over to aztreonam with E. coli resistant to Cipro, gent, Levaquin, tobramycin, Unasyn. CT abdomen pelvis without obstructive uropathy, no obvious stone, he is not aware of passing a stone, did not have any pain. Noted partial colectomy. History of smoking. Serologies have been obtained, with anti-dsDNA not elevated, pending VEENA, ANCA, anti-GBM. Complement C3 94, C4 17. With unexplained unimproving renal dysfunction, with hematuria, recommendation by nephrology for further assessment with renal biopsy. Discussed options with him, he prefers transfer to [place], where he will be further assessed per discussion with gas plant specialist Dr. Cruz. Urology consultation versus follow-up may be considered given hematuria, history of smoking. Physical Exam Const: COMMON NORMALS: patient oriented x3 and alert GENERAL APPEARANCE: cooperative ORIENTATION/CONSCIOUSNESS: Yes awake HENMT: COMMON NORMALS: oropharynx normal Neck/C-Spine: COMMON NORMALS: no JVD Resp: COMMON NORMALS: normal respiratory effort and clear to auscultation bilaterally AUSCULTATION: clear to auscultation bilaterally Cardio: COMMON NORMALS: no JVD, regular rhythm, S1 normal heart sound present, S2 normal heart sound present and No murmurs present (Cardio) RHYTHM: regular rhythm HEART SOUNDS: S1 normal heart sound present and S2 normal heart sound present GI: COMMON NORMALS: Normal to inspection, nondistended, normoactive bowel sounds present, Soft to palpation and non-tender PALPATION: Yes Soft to palpation Extremity: COMMON NORMALS: no joint enlargement and no pedal edema Neuro: COMMON NORMALS: patient oriented x3 and moves all extremities S ENSORIUM/ORIENTATION: Yes alert Skin: COMMON NORMALS: no rashes or lesions noted GENERAL SKIN EXAM: no rash es or lesions noted TS Data Studies Completed and Pending Pending at discharge Category Date Time Status VEENA Screen w/ Reflex Stat Lab 09/03/25 04:55 Received ANCA [Anti-Neutrophil Cytoplasmic AB] Routine Lab 09/03/25 04:55 Received Anti-Neutrophil Cytoplasmic AB Routine Lab 08/31/25 13:34 Received Comprehensive Metabolic Panel AM LABS Lab 09/05/25 04:00 Ordered Glomerular Basement AB IGG Routine Lab 09/03/25 04:55 Received Immunofixation Serum Stat Lab 08/31/25 08:12 Received Phosphorus AM LABS Lab 09/05/25 04:00 Ordered Protein Total and Electrophores UR24 NORAH [Protein Lab 08/31/25 15:00 Results Electr UR24 with NORAH] Routine Vitamin D 1,25 Dihydroxy Routine Lab 08/31/25 13:34 Received Completed Studies During Hospitalization Category Date Time Status CT abdomen pelvis wo con [id number] Stat Cat Scan 08/31/25 08:45 Completed CXRP [XR chest 1V portable [id number]] Routine Exams 09/04/25 10:35 Completed Laboratory Last Values WBC 5.96 10^3/uL (3.29-11.43) 09/03/25 04:55 RBC 3.56 10^6/uL (3.85-5.65) L 09/03/25 04:55 Hgb 10.20 g/dL (11.27-16.99) L 09/03/25 04:55 Hct 32.1 % (37-53) L 09/03/25 04:55 MCV 90.2 fl (82-101) 09/03/25 04:55 MCH 28.7 pg (27-33) 09/03/25 04:55 MCHC 31.8 g/dL (30-55) 09/03/25 04:55 RDW 14.2 % (12.1-15.1) 09/03/25 04:55 Plt Count 123 10^3/cmm (157-399) L 09/03/25 04:55 MPV 10.2 fL (7.4-10.4) 09/03/25 04:55 Neut % (Auto) 68.4 % 09/03/25 04:55 Lymph % (Auto) 23.0 % 09/03/25 04:55 [place] % (Auto) 7.0 % 09/03/25 04:55 Eos % (Auto) 1.0 % 09/03/25 04:55 Baso % (Auto) 0.3 % 09/03/25 04:55 Neut # (Auto) 4.07 10^3/uL (1.8-7.7) 09/03/25 04:55 Lymph # (Auto) 1.4 10^3/uL (0.8-4.8) 09/03/25 04:55 [place] # (Auto) 0.4 10^3/uL (0.2-0.9) 09/03/25 04:55 Eos # (Auto) 0.1 10^3/uL (0.0-0.8) 09/03/25 04:55 Baso # (Auto) 0.0 10^3/uL (0.0-0.1) 09/03/25 04:55 Nucleated RBC % (auto) 0 % 09/03/25 04:55 Nucleated RBCs # 0.0 /100WBC 09/03/25 04:55 PT 14.30 SECONDS (12.1-14.9) 08/31/25 08:12 INR 1.03 (0.8-1.2) 08/31/25 08:12 APTT 31.1 SECONDS (23.9-36.7) 08/31/25 08:12 Sodium 137 mmol/L (136-145) 09/04/25 05:01 Potassium 3.4 mmol/L (3.5-5.1) L 09/04/25 05:01 Chloride 101 mmol/L (98-107) 09/04/25 05:01 Carbon Dioxide 18 mmol/L (22-29) L 09/04/25 05:01 Anion Gap 21.4 (5-19) H 09/04/25 05:01 BUN 59 mg/dL (8-23) H 09/04/25 05:01 Creatinine 6.7 mg/dL (0.7-1.2) H* 09/04/25 05:01 GFR Calculation Not Reportable 09/04/25 05:01 Glucose 108 mg/dL (65-115) 09/04/25 05:01 POC Glucose 176 mg/dL (70-110) H 09/04/25 16:33 Estimat Average Glucose 146 08/31/25 08:12 Hemoglobin A1c 6.7 % (4.0-6.0) H 08/31/25 08:12 Calculated Osmolality 301 mOsm/kg (285-295) H 09/04/25 05:01 Uric Acid 6.5 mg/dL (3.4-7.0) 08/31/25 13:34 Calcium 7.7 mg/dL (8.5-10.5) L 09/04/25 05:01 Phosphorus 5.2 mg/dL (2.5-4.5) H 09/04/25 05:01 Magnesium 1.7 mg/dL (1.7-2.3) 09/04/25 05:01 Iron 30 ug/dL (59-158) L 09/01/25 03:39 TIBC 184 mcg/dl 09/01/25 03:39 % Saturation 16.3 % (20-50) L 09/01/25 03:39 Unsat Iron Binding 154 ug/dL (112-347) 09/01/25 03:39 Ferritin 427 ng/mL (30-400) H 09/01/25 03:39 Total Bilirubin 0.7 mg/dL (0.15-1.2) 09/04/25 05:01 AST 19 U/L (0-40) 09/04/25 05:01 ALT 17 U/L (0-41) 09/04/25 05:01 Alkaline Phosphatase 132 U/L (40-130) H 09/04/25 05:01 Creatine Kinase 123 U/L (39-308) 09/03/25 04:55 NT-Pro-B Natriuret Pep 89127 pg/mL (0-125) H 08/31/25 13:34 Total Protein 6.3 g/dL (6.6-8.7) L 09/04/25 05:01 Albumin 4.1 g/dL (3.5-5.2) 09/04/25 05:01 Globulin 2.2 g/dL (1.3-4.6) 09/04/25 05:01 Mqtry-5-Dqajohxlz 0.5 g/dL (0.2-0.3) H 08/31/25 13:34 Iceee-2-Pacnenazc 0.8 g/dL (0.5-0.9) 08/31/25 13:34 Wble-2-Cvqouazs 0.4 g/dL (0.4-0.6) 08/31/25 13:34 Keep-1-Asnpcspe 0.3 g/dL (0.2-0.5) 08/31/25 13:34 Gamma Globulins 1.6 g/dL (0.8-1.7) 08/31/25 13:34 Abnorm Protein Band 1 Not Reportable 08/31/25 13:34 Triglycerides 106 mg/dL (0-150) 09/01/25 03:39 Cholesterol 81 mg/dL (0-200) 09/01/25 03:39 LDL Cholesterol, Calc 38 mg/dL (50-129) L 09/01/25 03:39 HDL Cholesterol 22 mg/dL (60-100) L 09/01/25 03:39 LDL/HDL Ratio 1.73 RATIO (0.00-3.22) 09/01/25 03:39 Cholesterol/HDL Ratio 3.68 mg/dL (1.0-5.00) 09/01/25 03:39 25-OH Vitamin D Total 6 ng/mL (30-100) L 09/01/25 03:39 PTH Intact 220.6 pg/mL (15-65) H 09/01/25 03:39 Calcium (PTH Intact) 8.0 mg/dL (8.5-10.5) L 09/01/25 03:39 Urine Color Red (Yellow) A 08/31/25 08:06 Urine Appearance Clear (CLEAR) 08/31/25 08:06 Urine pH 5.5 (5-7) 08/31/25 08:06 Ur Specific [place] 1.011 (1.005-1.030) 08/31/25 08:06 Urine Protein 3+ (Negative) A 08/31/25 08:06 Urine Glucose (UA) 2+ (Normal) H 08/31/25 08:06 Urine Ketones Negative (Negative) 08/31/25 08:06 Urine Blood 3+ (Negative) A 08/31/25 08:06 Urine Nitrate Negative (Negative) 08/31/25 08:06 Urine Bilirubin Negative (Negative) 08/31/25 08:06 Urine Urobilinogen 1.0 mg/dL (Negative) 08/31/25 08:06 Ur Leukocyte Esterase Trace (Negative) A 08/31/25 08:06 Urine RBC >100 /hpf (0-2) H 08/31/25 08:06 Urine WBC 11-20 /hpf (0-5) H 08/31/25 08:06 Ur Squamous Epith Cells 0-5 /hpf (0-5) 08/31/25 08:06 Amorphous Sediment Not Reportable 08/31/25 08:06 Urine Bacteria None seen /hpf (NONE) 08/31/25 08:06 Hyaline Casts 4.11 /lpf 08/31/25 08:06 Ur Random Microalbumin 177 ug/dL (0-20) H 08/31/25 08:06 U Random Total Protein 311 mg/dL 08/31/25 08:06 Ur Random Sodium 55 mmol/L 08/31/25 15:00 Ur Random Potassium 30 mmol/L 08/31/25 15:00 Ur Random Chloride 51 mmol/L 08/31/25 15:00 Urine Creatinine 54 mg/dL (39-259) 08/31/25 08:06 Urine Creatinine 55 mg/dL (39-259) 08/31/25 08:06 Microalb/Creat Ratio 3278 mg/dL (0-20) H 08/31/25 08:06 U Abnormal Prot Band 2 Not Reportable 08/31/25 13:34 U Abnormal Prot Band 3 Not Reportable 08/31/25 13:34 Pro Electrophoresis Int See note 08/31/25 13:34 NORAH Interpretation See note 08/31/25 15:00 VEENA Screen Negative (NEGATIVE) 08/31/25 13:34 Anti-ds DNA IgG Ab <1 IU/mL 09/03/25 04:55 Glomerular Base Mem IgG <1.0 AI 08/31/25 13:34 Complement C3 94 mg/dL (90-180) 09/03/25 04:55 Complement C4 17 mg/dL (10-40) 09/03/25 04:55 Free [place] Light Chains 163.6 mg/L (3.3-19.4) H 08/31/25 13:34 Free [place] Light Chain 108.7 mg/L (5.7-26.3) H 08/31/25 13:34 Free [place]/Lambda Ratio 1.51 (0.26-1.65) 08/31/25 13:34 Hep Bs Antigen Non-reactive (Nonreactive) 08/31/25 08:12 Hep Bs Antibody < 3.5 (11.5-1000) L 08/31/25 08:12 Hep B Core Total Ab Non-reactive (Nonreactive) 08/31/25 08:12 Hepatitis C Antibody Non-reactive (Nonreactive) 08/31/25 13:34 Anti-Streptolysin O Ab 79 IU/mL (<200) 08/31/25 13:34 Radiology Impressions Abdomen/Pelvis CT 08/31/25 08:45 IMPRESSION: 1. Mild fluid distention of the small bowel and colon consistent with a history of diarrhea. 2. Soft tissue edema and anasarca. 3. Very small amount of ascites in the pelvis. 4. No renal obstruction. There is perinephric stranding which can be chronic or related to pyelonephritis. 5. Partial colectomy. 6. Very tiny bilateral pleural effusions. Chest X-Ray 09/04/25 10:35 IMPRESSION: Mild interstitial coarsening with bibasilar predominance may be related to chronic fibrotic changes. Mild edema and/or atypical infection considered less likely but not entirely excluded. Recent Clincial Data Last Vital Signs Temp 97.7 F 09/04/25 15:51 Pulse 67 09/04/25 15:51 Resp 16 09/04/25 15:51 BP 179/68 09/04/25 15:51 Pulse Ox 97 09/04/25 15:51 O2 Del Method Room Air 09/04/25 15:51 Vital Signs Temp Pulse Resp BP Pulse Ox O2 Del Method 09/04/25 15:51 97.7 F 67 16 179/68 97 Room Air 09/04/25 11:46 97.6 F 64 16 149/70 97 Room Air 09/04/25 07:50 97.4 F L 58 L 16 137/70 100 Room Air 09/04/25 06:00 60 Intake & Output/Weight 09/02/25 09/03/25 09/04/25 09/05/25 06:59 06:59 06:59 06:59 Intake Total 1610 / 1610 1810 / 1810 2380 / 2380 390 / 390 Output Total 1300 / 1300 850 / 850 600 / 600 910 / 910 Balance 310 / 310 960 / 960 1780 / 1780 -520 / -520 Weight 110.677 kg 110.677 kg 112.576 kg Vitals Last Vital Signs Temp 97.7 F 09/04/25 15:51 Pulse 67 09/04/25 15:51 Resp 16 09/04/25 15:51 BP 179/68 09/04/25 15:51 Pulse Ox 97 09/04/25 15:51 O2 Del Method Room Air 09/04/25 15:51 TS Medications Medications Acetaminophen (Acetaminophen 325 Mg Tablet) 650 mg PO Q6H PRN PRN Reason: Mild/Mod Pain Or Temp >/= 101 Last Admin: 09/04/25 15:20 Dose: 650 mg Amlodipine Besylate (Amlodipine 5 Mg Tablet) 5 mg PO DAILY [facility] Last Admin: 09/04/25 05:27 Dose: 5 mg Atenolol (Atenolol 50 Mg Tablet) 50 mg PO DAILY GIOVANNA Last Admin: 09/04/25 05:15 Dose: 50 mg Atorvastatin Calcium (Atorvastatin 20 Mg Tablet) 20 mg PO BEDTIME [facility] Last Admin: 09/03/25 21:08 Dose: 20 mg Bisacodyl (Bisacodyl 5 Mg Tablet) 10 mg PO DAILY PRN; Protocol PRN Reason: Constipation (see protocol) Last Admin: 09/04/25 05:15 Dose: 10 mg Ergocalciferol (Ergocalciferol (Vitamin D2) 50,000 Unit Capsule) 50,000 unit PO Q7D GIOVANNA Last Admin: 09/01/25 12:30 Dose: 50,000 unit Glucagon (Glucagon 1 Mg/Ml Kit 1 Ml) 1 mg IM ONCE PRN; Protocol PRN Reason: Adult Acute Hypoglycemia Nursing Prot. Guaifenesin/Dextromethorphan (Guaifenesin-Dextromethorphan Udc 10 Ml) 10 ml PO Q4H PRN PRN Reason: COUGH Last Admin: 09/04/25 12:23 Dose: 10 ml Dextrose (D5w) 500 mls @ 0 mls/hr IV ONCE PRN; Protocol PRN Reason: Adult Acute Hypoglycemia Prot Dextrose (D10w) 125 mls @ 750 mls/hr IV PRN PRN; Protocol PRN Reason: Adult Acute Hypoglycemia Nursing Protocol Dextrose (D10w) 250 mls @ 1,000 mls/hr IV PRN PRN; Protocol PRN Reason: Adult Acute Hypoglycemia Nursing Protocol Albumin Human (Albumin) 25 g in 100 mls @ 60 mls/hr IV Q8H [facility] Last Admin: 09/04/25 15:32 Dose: 60 mls/hr Aztreonam 1,000 mg/ Sodium (Chloride) 50 mls @ 100 mls/hr IV Q12H [facility]; Protocol Last Infusion: 09/04/25 11:53 Dose: Infused Insulin Glargine (Insulin Glargine 100 Units/1 Ml) 30 unit SUBCUT DAILY [facility] Last Admin: 09/04/25 08:19 Dose: 30 unit Insulin Human Lispro (Insulin Lispro 100 Unit/1 Ml) 0 unit SUBCUT WM&BEDTIME [facility]; Protocol Last Admin: 09/04/25 11:17 Dose: Not Given Isosorbide Mononitrate (Isosorbide Mononitrate Er 30 Mg Tablet) 60 mg PO QAM [facility] Last Admin: 09/04/25 05:15 Dose: 60 mg Nicotine (Nicotine 21 Mg Patch) 1 patch TRANSDERMA DAILY [facility] Last Admin: 09/04/25 05:13 Dose: 1 patch Nicotine Polacrilex (Nicotine 4 Mg Lozenge) 4 mg MUCOUS MEM Q4H PRN PRN Reason: NICOTINE CRAVINGS Last Admin: 09/02/25 17:34 Dose: 4 mg Ondansetron HCl (Ondansetron 2 Mg/Ml Sdv 2 Ml) 4 mg IVP Q8H PRN PRN Reason: vomiting, or N/V if npo Last Admin: 09/04/25 12:23 Dose: 4 mg Discontinued Medications Amlodipine Besylate (Amlodipine 5 Mg Tablet) 5 mg PO DAILY [facility] Last Admin: 09/02/25 05:55 Dose: 5 mg Amlodipine Besylate (Amlodipine 5 Mg Tablet) 10 mg PO DAILY [facility] Last Admin: 09/03/25 04:47 Dose: 10 mg Furosemide (Furosemide 10 Mg/Ml Sdv 4ml) 40 mg IVP ONCE ONE Stop: 09/01/25 10:09 Last Admin: 09/01/25 12:28 Dose: 40 mg Furosemide (Furosemide 10 Mg/Ml Sdv 10ml) 60 mg IVP ONCE ONE Stop: 09/02/25 10:00 Last Admin: 09/02/25 11:23 Dose: 60 mg Ciprofloxacin/Dextrose (Cipro) 400 mg in 200 mls @ 200 mls/hr IV Q24H GIOVANNA; Protocol Last Admin: 09/01/25 16:36 Dose: 200 mls/hr Ferric Sodium Gluconate 125 mg (/ Sodium Chloride) 110 mls @ 110 mls/hr IV Q24H GIOVANNA Stop: 09/03/25 11:59 Last Infusion: 09/03/25 13:01 Dose: Infused Potassium Chloride (Potassium Chloride Er 20 Meq Tablet) 20 meq PO ONCE ONE Stop: 08/31/25 15:47 Last Admin: 08/31/25 16:23 Dose: 20 meq Potassium Chloride (Potassium Chloride Er 20 Meq Tablet) 20 meq PO ONCE ONE Stop: 09/01/25 08:03 Last Admin: 09/01/25 08:41 Dose: 20 meq Potassium Chloride (Potassium Chloride Er 20 Meq Tablet) 20 meq PO ONCE ONE Stop: 09/02/25 07:49 Last Admin: 09/02/25 08:09 Dose: 20 meq Potassium Chloride (Potassium Chloride Er 20 Meq Tablet) 40 meq PO Q6H GIOVANNA Stop: 09/02/25 16:01 Last Admin: 09/02/25 17:25 Dose: 40 meq Allergies codeine Allergy (Unknown, Verified 11/21/24 09:59) unknown Penicillins Allergy (Unknown, Verified 11/21/24 09:59) unknown Sulfa (Sulfonamide Antibiotics) Allergy (Unknown, Verified 11/21/24 09:59) unknown Home Medications liraglutide 0.6 mg/0.1 mL (18 mg/3 mL) subcutaneous pen injector (Victoza 2-Roberto) 1.2 mg SUBCUT QAM 08/04/21 [History Confirmed 08/31/25] insulin degludec 100 unit/mL (3 mL) subcutaneous pen (Tresiba FlexTouch U-100 insulin) 36 unit SUBCUT BEDTIME 09/23/21 [History Confirmed 08/31/25] nitroglycerin 0.4 mg sublingual tablet See Rx Instructions .Route .COMPLEX #25 tabs 08/04/23 [Rx Confirmed 08/31/25] atenolol 50 mg tablet 50 mg PO DAILY #90 tabs 03/07/25 [Rx Confirmed 08/31/25] empagliflozin 25 mg tablet (Jardiance) 25 mg PO DAILY 07/06/25 [History Confirmed 08/31/25] clopidogrel 75 mg tablet 75 mg PO DAILY 08/31/25 [History Confirmed 08/31/25] isosorbide mononitrate 30 mg tablet,extended release 24 hr 60 mg PO QAM 08/31/25 [History Confirmed 08/31/25] losartan 100 mg tablet 100 mg PO DAILY 08/31/25 [History Confirmed 08/31/25] simvastatin 20 mg tablet 20 mg PO BEDTIME 08/31/25 [History Confirmed 08/31/25] Discharge Plan Discharge Patient Disposition: Xfer Short-Term Hosp Condition: Stable Prescriptions: No Action Tresiba FlexTouch U-100 100 unit/mL (3 mL) insulin pen 36 unit SUBCUT BEDTIME Jardiance 25 mg tablet 25 mg PO DAILY nitroglycerin 0.4 mg tablet, sublingual See Rx Instructions .ROUTE .COMPLEX Qty: 25 0RF Dose Instruction: DISSOLVE ONE TABLET UNDER THE TONGUE EVERY 5 MINUTES NEEDED FOR CHEST PAIN. DO NOT EXCEED A TOTAL OF 3 DOSES IN 15 MINUTES Rx Instructions: DISSOLVE ONE TABLET UNDER THE TONGUE EVERY 5 MINUTES NEEDED FOR CHEST PAIN. DO NOT EXCEED A TOTAL OF 3 DOSES IN 15 MINUTES atenolol 50 mg tablet 50 mg PO DAILY Qty: 90 3RF liraglutide [Victoza 2-Roberto] 0.6 mg/0.1 mL (18 mg/3 mL) pen injector 1.2 mg SUBCUT QAM isosorbide mononitrate 30 mg tablet extended release 24 hr 60 mg PO QAM clopidogrel 75 mg tablet 75 mg PO DAILY simvastatin 20 mg tablet 20 mg PO BEDTIME losartan 100 mg tablet 100 mg PO DAILY Referrals: Alayna Bloom MD [Primary Care Provider, Internal Medicine] Patient Instructions: Opioid Safety, Patient Portal & Keith Instructions Transfer Attestations Time Spent in Transfer Care: greater than 30 min Quality Metrics Clinical Quality Measures [ No reported AMI, CVA or VTE this stay] Coding Level of Care Code 45989 Total time (in minutes) for Discharge: 50 Diagnoses DEONNA (acute kidney injury) N17.9 Pyelonephritis N12 Hypokalemia E87.6 Mixed hyperlipidemia E78.2 Type 2 diabetes mellitus with hyperglycemia, without long-term current use of insulin E11.65 Diabetes mellitus type: type 2 Diabetes mellitus vermin exterminator insulin use: without vermin exterminator use Diabetes mellitus complication status: with hyperglycemia Essential hypertension I10 Hypertension type: essential hypertension H/O aortic valve replacement Z95.2 ASHD (arteriosclerotic heart disease) I25.10
--- NOTE | 2025-09-04 19:50 | P.PN_ITS ---
Subjective 2 Subjective: events noted Medications: Reviewed: Yes Vitals/I&O/Wt Last Vital Signs Temp 97.7 F 09/04/25 15:51 Pulse 69 09/04/25 17:56 Resp 16 09/04/25 15:51 BP 179/68 09/04/25 15:51 Pulse Ox 97 09/04/25 15:51 O2 Del Method Room Air 09/04/25 15:51 09/04/25 09/04/25 09/04/25 06:59 14:59 22:59 Intake Total 700 / 2380 390 / 390 580 / 970 Output Total 710 / 710 500 / 1210 Balance 700 / 1780 -320 / -320 80 / -240 Weight last 48 hrs Weight 112.576 kg Weight 110.677 kg Physical Exam 2 Narrative: Patient is comfortable no apparent distress vital signs noted He is not using any oxygen. HEENT normocephalic atraumatic. Neck is supple no JVP no carotid bruits lungs clear. Heart is regular, plus S1-S2 Abdomen is soft positive bowel sounds. Extremities have 2+ bilateral edema neurologically awake alert oriented x 3. No asterixis Data 09/03/25 04:55 09/04/25 05:01 A&P Assessment and plan 1. DEONNA (acute kidney injury): 75-year-old man with diabetes, hypertension, aortic valve replacement, COPD, permanent pacemaker 1. Acute kidney injury: Baseline creatinine not known. Patient now presented with creatinine in the 6 range with no improvement so far. Urine analysis showing 3+ protein and 3+ provide with hematuria. CT scan on presentation did not show evidence of renal stone and no hydronephrosis. Workup so far is negative. UPCR was more than 3000. Given no improvement in renal function, he would benefit from considering renal biopsy and recommended transfer for higher level of care. Holding Jardiance and losartan. SPEP and serologies are pending . 2. Hypertension: Holding losartan, monitor 3. Anemia: Iron studies reviewed, monitor 4. History of coronary artery disease 5. History of diabetes Further intervention will depend on repeat chemistries results of blood work and urine output Plan: See above. PDMP PDMP Reviewed: Not Reviewed Attestations 2 Medical Necessity Statement*: Per medicine team Coding Level of Care Code Acute Code for [facility] Diagnoses DEONNA (acute kidney injury) N17.9
[2025-09-06 07:21] LABS: Protein/Creatinine Ratio 7.067 (<0.100); Protein/Creatinine Ratio 7067 mg/g creat (<100)
[2025-09-06 13:34] LABS: Glomerular Bsmt Membrane IGG <1.0 AI
[2025-09-06 15:26] LABS: ANCA Screen NEGATIVE (NEGATIVE)
[2025-09-07 16:24] LABS: ANCA Screen NEGATIVE (NEGATIVE)
[2025-09-10 10:40] LABS: ALPHA-1-GLOBULINS 8 %; ALPHA-2-GLOBULINS 10 %; BETA GLOBULINS 15 %; GAMMA GLOBULINS 19 %
== END 2025-09-04 20:49 | disposition short-term general hospital (02) | DRG 683 ==
LOC: ER 09:20 → MEDSURG 11:44
PROVIDERS: Internal Medicine Nephrology; Admitting Provider Student in an Organized Health Care Education/Training Program; Emergency Provider Emergency Medicine; PCP Internal Medicine; Visit Provider Internal Medicine
DX: N17.9 Acute kidney failure, unspecified (principal); Z16.342 Resistance to multiple antimycobacterial drugs; J44.9 Chronic obstructive pulmonary disease, unspecified; I25.10 Atherosclerotic heart disease of native coronary artery without angina pectoris; N12 Tubulo-interstitial nephritis, not specified as acute or chronic; E87.6 Hypokalemia; E78.2 Mixed hyperlipidemia; E11.65 Type 2 diabetes mellitus with hyperglycemia; E11.22 Type 2 diabetes mellitus with diabetic chronic kidney disease; I12.9 Hypertensive chronic kidney disease with stage 1 through stage 4 chronic kidney disease, or unspecified chronic kidney disease; N18.9 Chronic kidney disease, unspecified; R31.0 Gross hematuria; B96.20 Unspecified Escherichia coli [E. coli] as the cause of diseases classified elsewhere; D63.1 Anemia in chronic kidney disease; F17.210 Nicotine dependence, cigarettes, uncomplicated; Z95.2 Presence of prosthetic heart valve; Z95.0 Presence of cardiac pacemaker; Z88.0 Allergy status to penicillin; Z88.2 Allergy status to sulfonamides; Z90.49 Acquired absence of other specified parts of digestive tract; Z82.49 Family history of ischemic heart disease and other diseases of the circulatory system
CPT/HCPCS: 36415; 36416; 71045; 74176; 80053; 80061; 81001; 82044; 82274; 82306; 82310; 82436; 82550; 82570; 82652; 82728; 82962; 83036; 83520; 83540; 83550; 83735; 83880; 83883; 83970; 84100; 84133; 84155; 84156; 84165; 84166; 84300; 84550; 85025; 85610; 85730; 86036; 86038; 86060; 86160; 86225; 86334; 86335; 86705; 86706; 86803; 87086; 87340; 96372; 99285; J0744; J1815; J1938; J2405; J2916; J3490; J9999; P9046